=== PATIENT | male | born 1940 | race Caucasian/White ===

== ENCOUNTER → 2017-02-10 | Outpatient (CLI) | payer MEDICARE, BC ==
[~2017-02-10] MED LIST: ASPI-730 PO; ATEN-36 PO; CLOP75TA13 PO; FENO145T10 PO; LISI-126 PO; METF-47 PO; NIAC750T11 PO; NITR0.4T28 SL; SIMV10TA76 PO
--- NOTE | 2017-02-10 09:52 | DI ---
Indication: ITS.REASON: R41.3 MEMORY IMPAIRMENT prior TIA episode in June 2016 PROCEDURE: MRA HEAD W/O CONTRAST: Encounter: Initial Comparison: Brain MRI dated July 01, 2016 Technique: MRA imaging of the head without contrast was acquired. Maximum intensity projection (MIP) reformatted images were produced. 3-dimensional volume rendered imaging of the [place] was performed by the technologist on a dedicated workstation. Findings: The intracranial portions of the vertebral arteries, internal carotid arteries, and their major branches show no significant stenosis or other vascular anomaly. No aneurysms or vascular malformations are evident. Impression: Normal exam. No evidence of aneurysm or flow-limiting arterial stenosis. .
== END ==
LOC: IMA 08:31
PROVIDERS: ATTEND Family Medicine
DX: R41.3 Other amnesia (principal); Z86.73 Personal history of transient ischemic attack (TIA), and cerebral infarction without residual deficits

== ENCOUNTER 2017-10-08 07:59 | Inpatient (IN) ==
--- NOTE | 2017-10-08 08:19 | Emergency Department Report ---
Medical Clearance HPI - General Stated complaint: eval-poss [facility] Time Seen by Provider: 10/08/17 08:13 Source: family, RN notes reviewed, old records reviewed Mode of arrival: ambulatory Limitations: altered mental status (Dementia) - History of Present Illness HPI Narrative: 77yo man presented to the ER for evaluation of worsening dementia. Pt has been dx'ed with dementia; is in a memory study currently. Over the last month, pts sx have gotten worse including auditory and visual hallucinations, not remembering his , and sundowning. WOP encouraged by PCM to present pt for eval for admission to [facility] when she can no longer care for pt. MD complaint: medical clearance requested Onset (ago): year(s) Reason for Medical Clearance: psychiatric condition Place: home Alleged Intoxication: No Compliant with Home Medications: No Traumatic Symptoms: denies traumatic injury Associated Symptoms: denies other symptoms Treatments Prior to Arrival: medication Home medications: Home Medications Medication Instructions Recorded Confirmed Metformin HCl [Glucophage] 500 mg PO BID #0 03/23/10 10/08/17 Nitroglycerin [Nitrostat] 0.4 mg SL PRN PRN #0 03/23/10 10/08/17 Niacin ER [Niaspan] 1,500 mg PO DAILY #0 02/28/14 10/08/17 Apixaban [Eliquis] 5 mg PO BID 06/24/17 10/08/17 Aspirin [Aspirin EC] 81 mg PO DAILY 06/24/17 10/08/17 Fenofibrate [Lofibra] 160 mg PO DAILY 09/09/17 10/08/17 Dorzolamide HCl 1 drop EACH EYE BID 10/08/17 10/08/17 Latanoprost 1 drop LEFT EYE HS 10/08/17 10/08/17 Previous Rx's Medication Instructions Recorded Divalproex Sprinkle [Depakote 500 mg PO BID cap 10/21/17 Sprinkle] Escitalopram [Lexapro] 20 mg PO DAILY tab 10/21/17 LORazepam INJ [Ativan Inj] 0.5 mg IM Q6H PRN vial 10/21/17 LORazepam INTENSOL [Ativan 0.5 mg PO Q6H PRN ml 10/21/17 Intensol] OLANZapine ODT [ZyPREXA Zydis] 2.5 mg PO Q6HR PRN tab 10/21/17 Acetaminophen [Tylenol] 325 - 650 mg PO Q5H PRN tab 10/22/17 Bisacodyl EC TAB [Dulcolax] 10 mg PO DAILY PRN tab 10/22/17 Hydrocodone/APAP 5/325 [Stella 1 tab PO Q6H PRN tab 10/22/17 5/325] Milk of Magnesia [Mom] 30 ml PO DAILY PRN udc 10/22/17 Morphine Sulfate Oral Liq [Roxanol 5 mg SL Q2H PRN #80 syringe 10/22/17 Oral Liq] Allergies/Adverse reactions: Allergies Allergy/AdvReac Type Severity Reaction Status Date / Time No Known Drug Allergies Allergy Unknown Verified 10/08/17 09:02 Review of Systems All systems: reviewed and negative except as stated Neurological: Reports: as per HPI, confusion. Denies: headache, weakness, numbness, paresthesias, abnormal gait, vertigo Psychiatric: Reports: as per HPI, auditory hallucinations, visual hallucinations. Denies: anxiety, depression, suicidal thoughts, homicidal thoughts PFS Patient Stated Medical History Cerebrovascular Accident Yes: TIA x1 Dementia Yes Transient Ischemic Attacks ( Yes TIA) Glaucoma Yes Other HEENT Yes: retinal vein occlusion 2012 Angina No Congestive Heart Failure Yes: per h&p Coronary Artery Disease Yes Hypertension Yes Asthma No Bronchitis No Chronic Obstructive Pulmonary No Disease (COPD) Pneumonia No Pulmonary Edema No Pulmonary Embolism No Sleep Apnea No Tuberculosis No Other Respiratory No Diabetes Mellitus Type 2 Yes: NIDDM Cirrhosis No Gastroesophageal Reflux No Disease Gastrointestinal Bleeding No Hepatitis No Hiatal Hernia No Obstructive Bowel No Ulcer No Other GI Yes: Inguinal hernia Hx Incontinence Yes Hx Renal Disease Yes: Stage 3 Other Yes: cyctitis Other Hematologic Yes: ON BLOOD THINNERS Osteoarthritis Yes Other Musculoskeletal Yes: dementia Depression Yes Clinic Medical History (Last Reviewed 09/29/17 @ 14:25 by VERONICA Lopez) Anxiety (Chronic Medical) BPH (benign prostatic hyperplasia) (Chronic Medical) CHF (congestive heart failure) (Chronic Medical) CKD (chronic kidney disease), stage III (Chronic Medical) Depression (Chronic Medical) Diabetes type 2, controlled (Chronic Medical) HTN (hypertension) (Chronic Medical) Prostate cancer (Chronic Medical) TIA (transient ischemic attack) (Chronic Medical) Surgical History: heart cath x4, 3rd one with stents of circumflex Dr. Kentrell Stern. L4/5-L5/S1 Laminectomy. Bilateral total knee replacement Dr. Duarte 2005 , 2008. Radical prostatectomy 05/07/1998. Right Rotator Cuff repair age 54. Appendectomy age 18. Colonoscopy 02/2014 polyps/FH. Colonoscopy 2016 WNL repeat 5 years, Dr. Modi. Right Inguinal hernia repair 09/10/2017 Family History: Family History (Last Reviewed 09/29/17 @ 14:25 by Akosua Alberto [facility]) Father Heart attack Chronic kidney disease Stroke Mother Dementia Heart disease - Social History Smoking status: Never smoker Physical Exam - Limitations Limitations: no limitations - General General appearance: alert, in no apparent distress - Normal Exams: Head:: Normocephalic without trauma Eyes:: Pupils are PERRLA w/ EOMI, No scleral icterus, irritation, or foreign bodies noted ENMT:: No facial trauma, nasal exudates, pharyngeal erythema, or exudates are noted Neck:: Full range of motion, without adenopathy Chest/Respirations:: Clear all bird, with good airflow, and symmetry bilaterally Cardiovascular:: Regular rate and rhythm, without murmur or gallop, Pulses 2+ all extremities, capillary refill, <2 seconds all extremities Abdomen:: Bowel sounds positive, soft, non-tender, non-distended, no hepatosplenomegaly, masses or bruits noted Lymphatic:: No lymphadenopathy Musculoskeletal:: No tenderness, or deformity noted, good range of motion Integumentary:: No rashes, hives, or bruising noted Neurological:: Patient is alert, cranial nerves, motor/sensory/cerebellar, exams w/o gross deficits Psychiatric:: Patient exhibits, appropriate attention - Psychiatric Psychiatric exam: Present: other (Loss of short-term memory; h/o auditory and visual hallucinations, perseverations, and delusions provided by spouse and PCM. ) Course - Consultations Consultation #1: Dr. Elise: Pt is well-known to Dr. Elise. Had been in discussions with the family regarding referral to [facility] previously. Time: 08:19 Vital Signs Temperature 97.8 F 10/08/17 08:05 Pulse Rate 64 10/08/17 08:05 Respiratory Rate 18 10/08/17 08:05 Blood Pressure 138/65 10/08/17 08:05 Pulse Oximetry 99 10/08/17 08:05 Temperature 97.4 F 10/21/17 20:37 Pulse Rate 62 10/21/17 20:37 Respiratory Rate 12 10/21/17 20:37 Blood Pressure 111/69 10/21/17 20:37 Pulse Oximetry 95 10/21/17 20:37 Medical Clearance - [facility] Narrative Medical decision making narrative: Pt with AD with acute worsening over the last month. No medical contraindications to admission to [facility]. Will contact [facility] for eval /admission. - Differential Diagnosis Differential Diagnosis Narrative: AD, microvascular dementia, Pick's dz, Provencal's, Parkinson's. - Medical Records Attestation: I reviewed the patient's medical records. - Lab Data Attestation: I reviewed the patient's lab results. Result diagrams: 10/19/17 07:42 10/19/17 07:42 Lab Results 10/08/17 10/08/17 10/08/17 Range/Units 08:28 08:28 09:18 WBC 4.0 L (4.5-11.0) T/MM3 RBC 3.89 L (4.50-5.90) M/MM3 Hgb 12.6 L (13.5-17.5) GM/DL Hct 38.3 L (41-53) % MCV 98.5 (80-100) UM3 MCH 32.4 (26-34) UUG MCHC 32.9 (31-37) GM/DL RDW Std Deviation 46.8 (36.9-50.2) FL Plt Count 138 D (130-400) T/MM3 MPV 9.8 (9.4-12.4) UM3 Immature Gran % (Auto) 0.2 (0.0-0.5) % Neut % (Auto) 59.1 (33-66) % Lymph % (Auto) 28.8 (23-45) % [place] % (Auto) 8.2 (0-9.0) % Eos % (Auto) 3.2 (0-4) % Baso % (Auto) 0.5 (0-2) % Neut # (Auto) 2.4 (1.8-7.7) T/MM3 Lymph # (Auto) 1.2 (1-4.8) T/MM3 [place] # (Auto) 0.3 (0-0.8) T/MM3 Eos # (Auto) 0.1 (0-0.5) T/MM3 Baso # (Auto) 0.0 (0-0.2) T/MM3 Abs Immat Gran (auto) 0.01 (0.00-0.03) T/MM3 Turbidity < 20 (0-20) Sodium 143 (134-144) MEQ/L Potassium 4.3 (3.6-5) MEQ/L Chloride 110 H (98-107) MEQ/L Carbon Dioxide 27 (22-30) MEQ/L Anion Gap 6 (5-15) MEQ/L BUN 23.0 H (9-20) MG/DL Creatinine 1.1 (0.8-1.5) MG/DL GFR Calculation 65 BUN/Creatinine Ratio 21 (6-26) RATIO Glucose 183 H (75-110) MG/DL Calculated Osmolality 284 H (261-280) MOSM/KG Calcium 9.4 (8.4-10.2) MG/DL Total Bilirubin 0.50 (0.20-1.30) MG/DL Icterus Index < 2 (0-7) AST 25 (17-59) U/L ALT 34 (21-72) U/L Alkaline Phosphatase 34 L (38-126) U/L Total Protein 6.0 L (6.3-8.2) G/DL Albumin 3.6 (3.5-5.0) G/DL Globulin 2.4 (2.4-3.6) G/DL Albumin/Globulin Ratio 1.5 (1.1-2.2) RATIO TSH 1.80 (0.47-4.68) MIU/L Specimen Hemolysis < 15 (0-25) Ur Collection Type Urine, clean catch Urine Color Yellow (YELLOW) Urine Clarity Clear Urine pH 7.0 (5.0-8.0) Ur Specific [place] 1.010 L (1.015-1.025) Urine Protein Negative (NEGATIVE) Urine Glucose (UA) Trace A (NEGATIVE) Urine Ketones Negative (NEGATIVE) Urine Occult Blood Negative (NEGATIVE) Urine Nitrate Negative (NEGATIVE) Urine Bilirubin Negative (NEGATIVE) Urine Urobilinogen 0.2 (NORMAL) EU/DL Ur Leukocyte Esterase Negative (NEGATIVE) Urinalysis Comment Microscopic not ind. Salicylates < 1.0 L (2-20) MG/DL Acetaminophen < 10 L (10-30) UG/ML Alcohol, Quantitative <10 (<10) MG/DL - Radiology Data Attestation: I reviewed the patient's radiology results. CXR: IMPRESSION: No acute cardiopulmonary abnormality. Disposition Clinical Impression: Alzheimer's dementia Qualifiers: Alzheimer's disease onset: unspecified onset Dementia behavioral disturbance: with behavioral disturbance Qualified Code(s): G30.9 - Alzheimer's disease, unspecified Disposition: 63 To [facility] Condition: Stable - Seen By: physician
--- OUTSIDE RECORDS SUMMARY | 2017-10-08 08:29 | External Medical Summary ---
:1940 Author Organization [employer] Care Team Providers Name Role Phone Kentrell Stern Provider Role Unavailable Allergies No Known Allergies Problems Problem Type Condition Code Onset Dates Condition Status Problem Coronary Artery Disease 414.01 Active Problem Diabetes Mellitus, Type II, 250.00 Active Controlled Problem Dyslipidemia 272.4 Active Problem S/P drug eluting coronary stent Z95.5 Active placement Problem Dyslipidemia (high LDL; low HDL) E78.4 Active Problem CAD (coronary artery disease) I25.10 Active Problem Hypertension 401.9 Active Problem s/p stenting, coronary V45.82 Active Problem Diabetes type 2, controlled E11.9 Active Problem Long-term use of aspirin therapy Z79.82 Active Medications No Known Medications Results No Known Results Summary Purpose [employer] Submission
--- OUTSIDE RECORDS SUMMARY | 2017-10-08 08:29 | External Medical Summary ---
:1940 Author Organization [employer] Care Team Providers Name Role Phone Kentrell Stern Provider Role Unavailable Allergies, Adverse Reactions, Alerts Substance Reaction Event Type N.K.D.A. Info Not Available Non Drug Allergy Problems Problem Type Condition Code Onset Dates Condition Status Assessment Diabetes Mellitus, Type II, 250.00 Active Controlled Assessment Hypertension 401.9 Active Assessment Dyslipidemia 272.4 Active Problem s/p stenting, coronary V45.82 Active Problem Diabetes Mellitus, Type II, 250.00 Active Controlled Problem Hypertension 401.9 Active Assessment Coronary Artery Disease 414.01 Active Assessment s/p stenting, coronary V45.82 Active Problem Dyslipidemia 272.4 Active Problem Coronary Artery Disease 414.01 Active Medications Medication Code System Code Instructions Start Date End Date Status Dosage Aspirin [facility] 91785-585 325 MG Orally qd 1 tab 6-78 [place] [address] 500 MG Orally bid 1 tab 8-01 [place] [address]409 10 MG Orally qd 1 tab 3-10 [place] [address]-690 0.005 % 1 gtt 5-32 [place] [address] 500 MG Orally qd 1 tab 5-01 [place] [address]707 160 MG Orally qd 1 tab 2-02 Nitroglycerin [facility] 70393-301 0.4 MG Sublingual 1 tab 7-25 [place] [address] 20 MG Orally qd 1 tab 8-01 Procedures Procedure Coding System Code Date Office Visit, Est Pt., Level 3 CPT-4 59621 Jun 11, 2015 ELECTROCARDIOGRAM, COMPLETE CPT-4 26222 Jun 11, 2015 Vital Signs Date/Time: Jun 11, 2015 BMI 27.64 Index Weight 198.2 lbs Height 5'11" in Cardiac Monitoring Heart Rate 96 /min Oximetry 98%RA % Blood Pressure Diastolic 60 mm Hg Blood Pressure Systolic 102 mm Hg Results No Known Results Summary Purpose [place] [employer] Submission
--- OUTSIDE RECORDS SUMMARY | 2017-10-08 08:29 | External Medical Summary ---
:1940 Author Organization [employer] Care Team Providers Name Role Phone Edil Sterni Provider Role Unavailable Allergies, Adverse Reactions, Alerts [...] Long-term use of aspirin therapy Z79.82 Active Assessment Diabetes type 2, controlled E11.9 Active Assessment Dyslipidemia (high LDL; low HDL) E78.4 Active Assessment S/P drug eluting coronary stent Z95.5 Active placement Assessment Long-term use of aspirin therapy Z79.82 Active Assessment CAD (coronary artery disease) I25.10 Active Medications Medication Code System Code Instructions Start Date End Date [place] D[place] [address] 500 MG Orally bid 1 tab 8-01 Fenofibrate [facility] 616[address]-186 160 MG Orally qd 1 tab 2-02 [place] [address]-292 325 MG Orally qd 1 tab 6-78 [place] [address] 10 MG Orally qd 1 tab 3-10 [place] [address] 500 MG Orally QD 2 tab 5-01 Nitroglycerin [facility] [address]88[address]-768 0.4 MG Sublingual 1 tab 7-25 prn Latanoprost [facility] 78336-511 0.005 % 1 gtt 5-32 [place] [address]-010 10 MG Orally qd 1 tab 7-01 Procedures Procedure Coding System Code Date Office Visit, Est Pt., Level 4 CPT-4 00308 Jul 09, 2016 Vital Signs Date/Time: Jul 09, 2016 BMI 26.78 Index Weight 192 lbs Height 5'11" in Cardiac Monitoring Heart Rate 98 /min Oximetry 105 % Blood Pressure Diastolic 60 mm Hg Blood Pressure Systolic 110 mm Hg Results No Known Results Summary Purpose [employer] Submission
--- NOTE | 2017-10-08 08:47 | XRay Report ---
Indication: Clearance PROCEDURE: XR chest 1V: Encounter: Initial Comparison: None FINDINGS: The lungs are clear. There is no abnormal airspace opacity, pleural effusion or pneumothorax identified. The heart size, pulmonary vasculature and mediastinum are within normal limits. Degenerative and postoperative change in the right shoulder. Chronic rotator cuff tears. IMPRESSION: No acute cardiopulmonary abnormality. .
[2017-10-08 12:11] VITALS: BMI 25.2
[2017-10-08] MEDS ORDERED: HALOPERIDOL 5 MG/ML INJECTION IM PRN (12:20)
[2017-10-08] MEDS ORDERED: HALOPERIDOL 0.5 MG TABLET PO PRN (12:20)
[2017-10-08] MEDS ORDERED: NITROGLYCERIN 0.4 MG SUBLINGUAL TABLET SL PRN (12:20)
[2017-10-08] MEDS ORDERED: LORazepam 0.5 MG TABLET PO PRN (12:20)
--- NOTE | 2017-10-08 13:14 | History & Physical Report ---
History of Present Illness Date: 10/08/17 Chief complaint: psychosis, dementia HPI: Saurabh Garcia (Rich) is a 77-year-old male patient of Dr. Elise who presented to [facility] ED today, 10/08/17, at his insistence due to increased paranoia and psychosis. His is present on the exam, and provides the majority of the history. Additional information is obtained from prior medical records, ED records and nursing notes. He has a known history of Alzheimer's dementia and is currently participating in a study in which he has recently undergone an extensive neuropsychological evaluation by Dr. Silas Hurst. Reportedly over the past 4-6 weeks, he has had progressive cognitive decline with increasing restlessness and paranoia. His believes that his is letting people into their house and is selling drugs. This morning, around 0400, he called the police to report that someone had dropped at package off at their house. She also reports that he has been hiding items around the house and at times does not recognize that she is his . After more than 2 hours, the police were able to de-escalate the situation safely and Chris was brought to the ED for further evaluation. Labs were obtained in the ED and revealed mild leukopenia ( WBC 4.0) and mild anemia (12.6). CMP was unremarkable. Review of prior medical records revealed that he recently under went right inguinal repair by Dr. Martinez on 09/10/17, which retrospectively appears to correlate with some of the increased behaviors. UA was unremarkable and CXR showed no acute cardiopulmonary disease. His previously expressed concern about being able to continue to care for Chris at home. She recalled that in the fall of 2016 he had made some morbid statements resulting in the removal of all guns from the home by his son. He denies any recent illness, fevers, chill, cough, congestion, chest pain, shortness of breath, abdominal pain, nausea or vomiting. Due to his acute psychosis, he was admitted [facility]. The hospitalist service was consulted for medical management. Prior records indicate a past medical history significant for CHF, CKD stage III, diabetes and hypertension. Chris is seen, accompanied by his , while sitting in the day room. He appears slightly withdrawn and becomes silently tearful throughout the admission process and increased commotion on the unit. Review of Systems All systems PM: 10-point ROS was reviewed, no additional remarkable complaints except Review of systems: limited due to patient's dementia. - Constitutional Constitutional: Present: weight loss (gradual over few years). Absent: chills, fever(s), headache(s), malaise, weakness - EENMT Eyes: Absent: diplopia, loss of vision Ears: Absent: ear pain Balance: Absent: falling to one side Nose: Absent: nosebleeds Mouth/Throat: Absent: sore throat, painful swallowing, change in voice - Cardiovascular Cardiovascular: Present: edema. Absent: chest pain, palpitations, syncope, dyspnea on exertion, orthopnea Rhythm: Present: regular rhythm Vascular: Present: pallor of an extermity - Respiratory Respiratory: Absent: cough, dyspnea, hemoptysis, dyspnea on exertion, wheezing - Gastrointestinal Gastrointestinal: Absent: abdominal pain, diarrhea, hematochezia, melena, nausea , vomiting - Genitourinary Genitourinary: Absent: dysuria, flank pain, hematuria - Musculoskeletal Musculoskeletal: Absent: back pain, deformity, limited range of motion - Integumentary/Breasts Integumentary: Absent: rash - Neurological Neurological: Present: confusion, memory loss. Absent: convulsions, dizziness, focal weakness, headache(s), tremor(s) - Psychiatric Psychiatric: Present: anxiety, behavioral changes, depression, paranoia - Endocrine Endocrine: Absent: flushing, palpitations - Hematologic/Lymphatic Hematologic/Lymphatic: Absent: easy bruising - Allergic/Immunologic Allergic/Immunologic: Absent: seasonal rhinorrhea Past Medical History Patient Stated Medical History Alzheimer's dementia. Anxiety. BPH. CAD. CHF. Chronic anticoagulation on Eliquis. Chronic kidney disease, stage III. Depression. Diabetes Type 2. Glaucoma. Hypertension. History of prostate cancer. History of retinal vein occlusion, 2011. History of TIA. History of urinary incontinence. Osteoarthritis. Surgical History: Right Inguinal hernia repair 09/10/2017. Heart cath x4, 3rd one with stents of circumflex Dr. Kentrell Stern. L4/5-L5/S1 Laminectomy. Bilateral total knee replacement Dr. Duarte 2005 , 2008. Radical prostatectomy . Right Rotator Cuff repair age 54. Appendectomy age 18. Colonoscopy 02/2014 polyps/FH. Colonoscopy 06/25/2017 WNL repeat 5 years, Dr. Modi. Family History Updates: Father - Heart attack, Chronic kidney disease, Stroke. Mother - Dementia, Heart disease. Aunt - Dementia. - Social History Smoking status: Never smoker Substance use type: does not use Alcohol intake frequency: does not drink Housing: house Household members: spouse Current occupational status: retired Does patient use chewing tobacco?: No Current residence: Apartment/Private Home Social history: PCP - Dr. Elise. Neuropsych - Dr. Silas Hurst. Medications Home Medications Medication Instructions Recorded Confirmed Type Metformin HCl [Glucophage] 500 mg PO BID #0 03/23/10 10/08/17 History Nitroglycerin [Nitrostat] 0.4 mg SL PRN PRN #0 03/23/10 10/08/17 History Niacin ER [Niaspan] 1,500 mg PO DAILY #0 02/28/14 10/08/17 History Apixaban [Eliquis] 5 mg PO BID 06/24/17 10/08/17 History Aspirin [Aspirin EC] 81 mg PO DAILY 06/24/17 10/08/17 History Fenofibrate [Lofibra] 160 mg PO DAILY 09/09/17 10/08/17 History Simvastatin [Zocor] 10 mg PO HS 09/09/17 10/08/17 History Cholecalciferol (Vitamin D3) 2,000 unit PO DAILY 10/08/17 10/08/17 History [Vitamin D3] Dorzolamide HCl 1 drop EACH EYE BID 10/08/17 10/08/17 History Escitalopram [Lexapro] 10 mg PO DAILY 10/08/17 10/08/17 History Latanoprost [Latanoprost] 1 drop LEFT EYE HS 10/08/17 10/08/17 History Allergies Allergy/AdvReac Type Severity Reaction Status Date / Time No Known Drug Allergies Allergy Unknown Verified 10/08/17 09:02 Exam Vital Signs: Temperature 97.6 F 10/08/17 12:00 Pulse Rate 61 10/08/17 12:00 Respiratory Rate 20 10/08/17 12:00 Blood Pressure 134/73 10/08/17 12:00 Pulse Oximetry 100 10/08/17 12:00 Height/Weight/BMI: Height 5 ft 10 in Weight 176 lb 2.389 oz Body Mass Index 25.2 Comments: Patient is seen while sitting in day room with at his side; appears withdrawn and silently crying most likely secondary to the commotion of being admitted. - Constitutional Present: well nourished, well developed, cooperative Comments: tearful - Routine HEENT Exam Head: Present: normocephalic, atraumatic Eye: Present: PERRL. Absent: conjunctival icterus ENT: Present: mucous membranes moist, oropharynx clear - Routine Neck Exam Present: supple, full ROM, trachea midline - Routine Chest/Breast/Axilla Exam Chest wall: Absent: pacemaker - Routine Respiratory Exam Present: CTA bilaterally. Absent: rales, rhonchi, stridor, wheezes, crackles - Routine Cardiovascular Exam Present: RRR, S1, S2 - Routine Abdominal Exam Present: soft, normoactive bowel sounds, non distended, non tender. Absent: rebound - Routine Extremities Exam Present: edema (trace), non tender, pulses intact - Routine Back/Spine/Pelvis Exam Back/Spine: Present: full ROM, kyphosis. Absent: vertebral tenderness - Routine Skin Exam Present: dry, warm. Absent: jaundice Comments: afebrile - Routine Neurological Exam Present: alert ( orienated to self only.), moving all extremities, hearing grossly intact patient does not speak on exam; does most of the talking. - Routine Psychiatric Exam Present: cooperative Comments: tearful, withdrawn, appears overwhelmed. Results - Labs CBC & Chem 7: 10/08/17 08:28 10/08/17 08:28 - Imaging and Cardiology Chest x-ray Status: image reviewed by me Additional comments: Date of Exam: 10/08/17 PROCEDURE: XR chest 1V: FINDINGS: The lungs are clear. There is no abnormal airspace opacity, pleural effusion or pneumothorax identified. The heart size, pulmonary vasculature and mediastinum are within normal limits. Degenerative and postoperative change in the right shoulder. Chronic rotator cuff tears. IMPRESSION: No acute cardiopulmonary abnormality. Assessment and Plan (1) Psychosis Current visit: Yes Status: Acute (2) Alzheimer's dementia Current visit: Yes Status: Chronic Assessment and Plan: Assessment Psychosis, acute. Alzheimer's dementia. Anemia, unspecified. Anxiety. BPH. CAD. CHF. Chronic anticoagulation on Eliquis. Chronic kidney disease, stage III. Depression. Diabetes Type 2. Glaucoma. Hypertension. History of prostate cancer. History of retinal vein occlusion, 2011. History of TIA. History of urinary incontinence. Osteoarthritis. Plan - 10/08/17 (Admission) Agree with admission to [facility] for further psychiatric evaluation treatment. Provide safe and supportive environment. Hospitalist service consulted for medical management. Labs obtained in ED prior to admission and were relatively unremarkable. Will continue to monitor periodically throughout admission. TSH 1.80. Recent right inguinal hernia repair on 09/10/[address] Martinez with subsequent formation of a hematoma which has been managed as an outpatient. Will consult Dr. Martinez for continued management of hematoma. Anemia noted on admission - hgb 12.6. Will assess B12 level. Suspect anemia is secondary to recent surgery. Will continue to monitor closely. Continue home medications including Eliquis for chronic anticoagulation given prior TIA. Monitor blood pressure closely as well as daily weight to monitor for fluid overload. Will check blood sugars daily in AM. Upon discharge, patient's care will be returned to his PCP, Dr. Elise. Resuscitation Status: Full Code - Time spent with patient Time with patient PN: 70 minutes - Physician Narrative Physician: Herminia Salazar MD Narrative: Date: 10/08/17 Time: 1300 Hospital Course Summary Disclaimer: The visit summary below is not to be considered part of the above Progress Note. Hospital Course: Plan - 10/08/17 (Admission) Agree with admission to [facility] for further psychiatric evaluation treatment. Provide safe and supportive environment. Hospitalist service consulted for medical management. Labs obtained in ED prior to admission and were relatively unremarkable. Will continue to monitor periodically throughout admission. TSH 1.80. Recent right inguinal hernia repair on 09/10/[address] Martinez with subsequent formation of a hematoma which has been managed as an outpatient. Will consult Dr. Martinez for continued management of hematoma. Anemia noted on admission - hgb 12.6. Will assess B12 level. Suspect anemia is secondary to recent surgery. Will continue to monitor closely. Continue home medications including Eliquis for chronic anticoagulation given prior TIA. Monitor blood pressure closely as well as daily weight to monitor for fluid overload. Will check blood sugars daily in AM. Upon discharge, patient's care will be returned to his PCP, Dr. Elise.
--- NOTE | 2017-10-08 16:05 | General Surgery Consult Note ---
Consult date: 10/12/17 Attending Physician: Cherelle Macias MD Reason for consult: hernia (hematoma) [facility] Patient Stated Medical History Cerebrovascular Accident Yes: TIA x1 Glaucoma Yes Other HEENT Yes: retinal vein occlusion 2011 Angina No Congestive Heart Failure Yes: per h&p Coronary Artery Disease Yes Hypertension Yes Diabetes Mellitus Type 2 Yes: NIDDM Other GI Yes: Inguinal hernia Hx Incontinence Yes Hx Renal Disease Yes: Stage 3 Other Yes: cyctitis Other Hematologic Yes: ON BLOOD THINNERS Osteoarthritis Yes Other Musculoskeletal Yes: dementia Depression Yes Clinic Medical History (Last Reviewed 09/29/17 @ 14:25 by VERONICA Lopez) Anxiety (Chronic Medical) BPH (benign prostatic hyperplasia) (Chronic Medical) CHF (congestive heart failure) (Chronic Medical) CKD (chronic kidney disease), stage III (Chronic Medical) Depression (Chronic Medical) Diabetes type 2, controlled (Chronic Medical) HTN (hypertension) (Chronic Medical) Prostate cancer (Chronic Medical) TIA (transient ischemic attack) (Chronic Medical) Surgical History: Right Inguinal hernia repair 09/10/2017. Heart cath x4, 3rd one with stents of circumflex Dr. Kentrell Stern. L4/5-L5/S1 Laminectomy. Bilateral total knee replacement Dr. Duarte 2005 , 2008. Radical prostatectomy . Right Rotator Cuff repair age 54. Appendectomy age 18. Colonoscopy 02/2014 polyps/FH. Colonoscopy 06/25/2017 WNL repeat 5 years, Dr. Modi. Family History: Family History (Last Reviewed 09/29/17 @ 14:25 by VERONICA Lopez) Father Heart attack Chronic kidney disease Stroke Mother Dementia Heart disease - Social History Smoking status: Never smoker Does patient use chewing tobacco?: No Current residence: Apartment/Private Home Medications Home Medications Medication Instructions Recorded Confirmed Type Metformin HCl [Glucophage] 500 mg PO BID #0 03/23/10 10/08/17 History Nitroglycerin [Nitrostat] 0.4 mg SL PRN PRN #0 03/23/10 10/08/17 History Niacin ER [Niaspan] 1,500 mg PO DAILY #0 02/28/14 10/08/17 History Apixaban [Eliquis] 5 mg PO BID 06/24/17 10/08/17 History Aspirin [Aspirin EC] 81 mg PO DAILY 06/24/17 10/08/17 History Fenofibrate [Lofibra] 160 mg PO DAILY 09/09/17 10/08/17 History Simvastatin [Zocor] 10 mg PO HS 09/09/17 10/08/17 History Cholecalciferol (Vitamin D3) 2,000 unit PO DAILY 10/08/17 10/08/17 History [Vitamin D3] Dorzolamide HCl 1 drop EACH EYE BID 10/08/17 10/08/17 History Escitalopram [Lexapro] 10 mg PO DAILY 10/08/17 10/08/17 History Latanoprost [Latanoprost] 1 drop LEFT EYE HS 10/08/17 10/08/17 History Allergies Allergy/AdvReac Type Severity Reaction Status Date / Time No Known Drug Allergies Allergy Unknown Verified 10/08/17 09:02 Review of Systems 10-point ROS: negative except for HPI and the following: - Psychiatric Psychiatric: Present: anxiety, depression, thought of suicide, other (memroy loss) - Hematologic/Lymphatic Hematologic/Lymphatic: Present: easy bruising - Vital Signs Last Vital Signs Temp 97.6 F 10/08/17 12:00 Pulse 61 10/08/17 12:00 Resp 20 10/08/17 12:00 BP 134/73 10/08/17 12:00 Pulse Ox 100 10/08/17 12:00 - Laboratory Result Diagrams: 10/11/17 07:00 10/11/17 15:11 Hospital Course Summary Disclaimer: The visit summary below is not to be considered part of the above Progress Note. Hospital Course: Plan - 10/08/17 (Admission) Agree with admission to [facility] for further psychiatric evaluation treatment. Provide safe and supportive environment. Hospitalist service consulted for medical management. Labs obtained in ED prior to admission and were relatively unremarkable. Will continue to monitor periodically throughout admission. TSH 1.80. Recent right inguinal hernia repair on 09/10/[address] Martinez with subsequent formation of a hematoma which has been managed as an outpatient. Will consult Dr. Martinez for continued management of hematoma. Anemia noted on admission - hgb 12.6. Will assess B12 level. Suspect anemia is secondary to recent surgery. Will continue to monitor closely. Continue home medications including Eliquis for chronic anticoagulation given prior TIA. Monitor blood pressure closely as well as daily weight to monitor for fluid overload. Will check blood sugars daily in AM. Upon discharge, patient's care will be returned to his PCP, Dr. Elise.
[2017-10-08] MEDS ORDERED: NEOMYCIN/POLYMYXIN/BACITRACIN OINT PACKET TP PRN (18:11)
[2017-10-08] MEDS: LATANOPROST 0.005% EYE DROPS 2.5ml LEFT EYE SCH (20:22)
[2017-10-08] MEDS: APIXABAN 5 MG TABLET PO SCH (20:22)
[2017-10-08] MEDS: METFORMIN 500 MG TABLET PO SCH (20:22)
[2017-10-09] MEDS: DORZOLAMIDE 2% EYE DROPS 10ml EACH EYE SCH ×3 (00:17→20:35)
[2017-10-09] MEDS ORDERED: HALOPERIDOL 5 MG/ML INJECTION IM ONE (03:45)
[2017-10-09] MEDS ORDERED: FENOFIBRATE 160 MG TABLET PO SCH (09:00)
[2017-10-09] MEDS ORDERED: ESCITALOPRAM 10 MG TABLET PO SCH (09:00)
[2017-10-09] MEDS: ASPIRIN *EC* 81 MG TABLET PO SCH (11:59)
[2017-10-09] MEDS: APIXABAN 5 MG TABLET PO SCH ×2 (11:59→20:35)
[2017-10-09] MEDS: METFORMIN 500 MG TABLET PO SCH ×2 (12:00→20:36)
[2017-10-09] MEDS: NIACIN 750 MG PO SCH (12:00)
--- NOTE | 2017-10-09 20:21 | 24 Hour Neuropsychiatic Eval ---
Date of Admission: 10/08/17 11:06 Chief complaint: Physical aggression towards History of Present Illness: Patient is a 77-year-old , retired male who was admitted to [facility] on 10/08/17 after being brought by his for being physically combative with her at home. Patient has previously been diagnosed with primary progressive aphasia (variant of Alzheimer's dementia) by Dr. Silas Hurst and has been living with in the home, but has had increasing behaviors since mid-August. Of note, patient also underwent anesthesia for a hernia repair in mid-August. Since then, he has become increasingly paranoid, irritable, restless. He has been concerned his was selling drugs out of their home. At times, he has not recognized his . reported he has made multiple morbid statements about harming self so she has removed guns from their home. On interview, patient is being assisted by 2 male staff members and appears agitated with them. He does not answer any of my questions. He has disorganized behavior (unbuttoning his pants, sticking a MEMS PROCESS ENGINEER's fingers through the button hole and then becoming irritable with him). The MEMS PROCESS ENGINEER reported he has not been making any sense if he did talk. Nursing staff report patient became very agitated, combative, etc. overnight and required multiple IM PRNs, sleeping only ~2 hours. Per Neuropsych Evaluation completed by Dr. Silas Hurst in May 2017: "Date of Evaluation: 06/18/2017, 07/01/2017. & 07/06/2017 REFERRAL: The patient is a 76-year-old, right handed, , male who reports a gradually progressive decline in language and memory over the past year. He was referred by his neurologist, Dr. Gordo Smith, for assistance in differential diagnosis and treatment planning. PROCEDURES: A clinical interview was conducted with the patient and his . Available medical records were reviewed. The following neuropsychological tests were administered by a trained stull hewer under the supervision of Dr. Silas Hurst: Test of Premorbid Functioning (TOPF), Luke Adult Intelligence Scale 4th Edition (WAIS-IV), Repeatable Battery for the Assessment of Neuropsychological Status (RBANS), Shavon-Chandler Executive Function System (D-KEFS)[subtests: [place] Making & Verbal Fluency], [id number]- Hand Test, [place] Naming Test, Sergey Continuous Performance Test 3rd Edition (CPT-3). The testing was scored and interpreted; a final session was held with the patient and his ; and this report was written. HISTORY & PRESENTING PROBLEM: The patient and his reported an approximate 9 -12 month gradually progressive change in the patients cognition, observed to primarily impact language and memory. Specifically, the patient endorsed increased difficulties with word finding, coming up with the names of people and things, pronunciation, and losing track of what hes saying while speaking. His reported that she observes him to have difficulty completing words once started. He also reported that his rate of speech has declined considerably , which he attributed to his efforts to compensate for his difficulties with word finding and pronounciation. The patient and his additionally reported difficulties with memory, which they clarified to namely relate to difficulty misplacing personal items and being inattentive. His did note that he is variable in his ability to remember details from conversations. She noted that he tends to conflate or mix up details rather than completely forget them, citing his difficulty keeping track of his doctor appointments and their purposes. Difficulties in multitasking, staying on task, and complex problem solving were also reported by his . The patient continues to perform instrumental activities of daily living independently, although his observes him to have some difficulty. She noted that he has made errors writing checks such as omitting his signature or amount, and reported that he paid their taxes twice this year. Consequently, she stated that she is learning more about their finances so that she can provide increased assistance when needed. She noted changes in his driving in that he has greater difficulty changing lanes and, overall, tends to drive much slower. She reported that the patient was formerly a very capable cardiac/vascular sonographer, but noted that his ability to follow games such as [employer]ers Edge, which he has played all of his life, has declined to the point that they are playing much less frequently. They reported that he does manage his medications without difficulty, and denied other significant issue in ADLs. The patient denied current or previous depression or anxiety, however he did acknowledge that he is frustrated by his increased language difficulties. His observes him to be both more irritable and more easily frustrated. She also reported that he frequently wakes in the night with worry and agitation. SOCIAL HISTORY: The patient reported that he completed 16 years of education with a B.A. in P.E. from [employer]. 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 He and his have been 57 years and they have two sons, one and one who lives in the area. MEDICAL HISTORY: Additional past medical history is significant for coronary artery disease, hypertension, type II diabetes, suspected TIA (07/13), glaucoma , and prostate cancer. An MRA of the brain, dated 07/01/16, was interpreted as being normal. A recent amyloid PET scan was interpreted as showing a nonspecific pattern of moderate amyloid. MRI of the brain also from June 2016 showed diffuse cortical atrophy. He has a family history of dementia in his mother. BEHAVIORAL OBSERVATIONS: The patient arrived on time for the initial appointment and was accompanied by his . He was casually dressed, appropriately groomed, and appeared his stated age. He ambulated without assistance. Eye contact was average. His speech was slowed and deliberate, with diminished prosody. Word finding difficulties, phonemic paraphasia, and word substitutions were evident. At times, he lost track of what he was saying and need to be reminded. During testing, speech was described as somewhat incomprehensible with use of nonsense words. Thought processes were somewhat concrete and slowed. During interview, the patient had some difficulty comprehending relatively more complex questions. On testing, the patient struggled to understand directions and required that they be repeated and explained more concretely. Progress through testing was slow due to the patient s slowed thought processes and communication difficulties. Reported mood was pretty sharp; affect ranged appropriately and was consistent with stated mood. Insight into the nature of his cognitive difficulties was adequate, although he tended to minimize their impact on his daily functioning and was somewhat defensive when examples were provided by his . NEUROPSYCHOLOGICAL TEST RESULTS: On tests for which standard scores are available, the following classification system was applied to indicate deviation from mean (or average) test performance: superior range: > 90th percentile high average range: 90th - 75th percentile average range: 75th - 25th percentile low average range: 25th - 10th percentile mildly impaired range: 10th - 2nd percentile moderately impaired range: 2nd - 0.1st percentile severely impaired range. < 0.1st percentile Premorbid intellectual abilities were estimated using an equation that utilizes demographic variables and were estimated to be high average. Verbal intellectual functioning was moderately impaired, overall. Performance on other verbal tests were also generally impaired. Specifically, phonemic verbal retrieval was moderately impaired, semantic verbal retrieval was mildly to moderately impaired, and sentence repetition was significantly impaired, with even relative brief sentences being inaccurate. Confrontation naming was average , reading fluency was unimpaired, and reading of atypical words was mildly impaired. Oral description of a picture was fluent without signs of hue agrammaticism. Comprehension, which was informally tested, was impaired, with the patient requiring repetition and elaboration throughout testing. On tests of visuospatial ability, visual pattern analysis and reasoning and visuospatial pattern assembly were low average, judgment of line orientation was moderately impaired, and copy of a complex figure was high average. Auditory attention span was moderately impaired, working memory was moderately- to-severely impaired, and mental processing speed was moderately impaired. Conversely, sustained attention was unimpaired. Executive functioning, as measured by measures of divided attention and cognitive flexibility, was severely impaired. Learning of new verbal information was severely impaired. Following a brief delay, the patient was able to recall a small amount of the previously recalled information, a moderately impaired performance. Recall of a previously copied complex figure was also moderately impaired. Memory recognition ranged from mildly to severely impaired. CONCLUSIONS: On neuropsychological testing, the patient demonstrated significant cognitive dysfunction across most domains of cognition. Moderate to severe impairment was demonstrated in the domains of verbal working memory and language, and such impairment likely interfered with performance across tests of other domains. The patients significant impairments in auditory attention span, auditory working memory, and language is atypical within the early stages of many neurodegenerative processes. The patients language impairment is notable for single word retrieval difficulties in daily life and impaired sentence repetition, in the context of relatively intact fluency, grammaticism, and syntax in conversation, and preserved word knowledge. 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 Other aspects of the patients presentation, including his markedly impaired auditory attention span, impaired verbal working memory, slowed speech, and propensity for phonological paraphasias in speech, are also suggestive of logopenic PPA, in which word retrieval difficulties are believed due to impairment of the phonologic loop. Finally, logopenic PPA is now commonly considered an atypical variant of Alzheimers disease, with beta amyloid aggregation seen in greater than 70% of patients demonstrating clinical signs. The patients positive amyloid PET finding in the context of his clinical presentation is therefore further support of this suspected etiology. While logopenic PPA is believed most likely, an atypical presentation of Alzheimers disease cannot be definitively ruled out, particularly given the patients significant memory difficulties on testing. A final session was held with the patient and his during which these results were discussed. They appeared to comprehend the information. They asked appropriate questions, and all of their questions were answered. Therapy was aimed at discussing the nature and severity of the patients cognitive deficits and their suspected etiology. Recommendations were also offered and are listed below. 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" Psychosis: Hallucinations/Illusions (observed picking at air) Dementia: Memory Impairment, Aphasia, Poor Executive Functioning, Other ( physical aggression) Reviewed: Home Medications, Allergies, Current Lab Data, Nursing Notes, Physician Consults [facility] Patient Stated Medical History Cerebrovascular Accident Yes: TIA x1 Glaucoma Yes Other HEENT Yes: retinal vein occlusion 2011 Angina No Congestive Heart Failure Yes: per h&p Coronary Artery Disease Yes Hypertension Yes Asthma No Bronchitis No Chronic Obstructive Pulmonary No Disease (COPD) Pneumonia No Pulmonary Edema No Pulmonary Embolism No Sleep Apnea No Tuberculosis No Other Respiratory No Diabetes Mellitus Type 2 Yes: NIDDM Cirrhosis No Gastroesophageal Reflux No Disease Gastrointestinal Bleeding No Hepatitis No Hiatal Hernia No Obstructive Bowel No Ulcer No Other GI Yes: Inguinal hernia Hx Incontinence Yes Hx Renal Disease Yes: Stage 3 Other Yes: cyctitis Other Hematologic Yes: ON BLOOD THINNERS Osteoarthritis Yes Other Musculoskeletal Yes: dementia Depression Yes Clinic Medical History (Last Reviewed 09/29/17 @ 14:25 by VERONICA Lopez) Anxiety (Chronic Medical) BPH (benign prostatic hyperplasia) (Chronic Medical) CHF (congestive heart failure) (Chronic Medical) CKD (chronic kidney disease), stage III (Chronic Medical) Depression (Chronic Medical) Diabetes type 2, controlled (Chronic Medical) HTN (hypertension) (Chronic Medical) Prostate cancer (Chronic Medical) TIA (transient ischemic attack) (Chronic Medical) Surgical History: Right Inguinal hernia repair 09/10/2017. Heart cath x4, 3rd one with stents of circumflex Dr. Kentrell Stern. L4/5-L5/S1 Laminectomy. Bilateral total knee replacement Dr. Duarte 2005 , 2008. Radical prostatectomy . Right Rotator Cuff repair age 54. Appendectomy age 18. Colonoscopy 02/2014 polyps/FH. Colonoscopy 06/25/2017 WNL repeat 5 years, Dr. Modi. Family History: Family History (Last Reviewed 09/29/17 @ 14:25 by Akosua Alberto Pili) Father Heart attack Chronic kidney disease Stroke Mother Dementia Heart disease - Social History Smoking status: Never smoker Does patient use chewing tobacco?: No Current residence: Apartment/Private Home Social history: Strengths: Previously high functioning, supportive family Review of Systems ROS unobtainable: due to mental status - EENMT Ears: Absent: ear pain Balance: Absent: falling to one side Nose: Absent: nosebleeds Mouth/Throat: Absent: sore throat, painful swallowing, change in voice - Cardiovascular Rhythm: Present: regular rhythm Vascular: Present: pallor of an extermity - Genitourinary Genitourinary: Absent: dysuria, flank pain, hematuria Mental Status Exam Vitals: Last Vital Signs Temp 98.7 F 10/09/17 16:00 Pulse 89 10/09/17 16:00 Resp 16 10/09/17 16:00 BP 102/61 10/09/17 16:00 Pulse Ox 97 10/09/17 16:00 Height: 1.78 m Weight: 79.9 kg - Mental Status Exam Muscle Strength/Tone: Weak Dressing: Casual Grooming: Fair Attitude: Uncooperative, Combative Motor Activity: Retardation, Tremors Eye Contact: Poor Speech: Slowed, Other (Minimal) Volume: Soft Rhythm: Mumbled Orientation: Disoriented to time, Disoriented to place, Disoriented to situation , Oriented to person Mood: Irritable Affect: Angry Rate of Thoughts: Delayed Thought Organization: Disorganized, Confused Associations: Illogical Abstract Reasoning: Impaired, concrete Thought Content: Other (Poverty of thought or out of context to situation) Perception/Psychotic: Psychotic Current Hallucinations: Visual (observed picking out of air) Language: Naming Impaired Fund of Knowledge: Poor fund of knowledge Memory: Poor-immediate, Poor-recent Suicidal Ideation: Persistent Homicidal Ideation: None Insight: Impaired Judgement: Impaired Impulse Control: Poor - Laboratory Result Diagrams: 10/08/17 08:28 10/08/17 08:28 Laboratory Results - last 24 hr 10/09/17 08:47 Glucometer 146 Assessment and Plan (1) Psychosis Current visit: Yes Status: Acute R/O Postoperative delirium (2) Major neurocognitive disorder Problem details: due to primary progressive aphasia as above, with behavioral disturbance Current visit: Yes Status: Acute (3) Primary progressive aphasia Current visit: Yes Status: Acute (4) BPH (benign prostatic hyperplasia) Current visit: Yes Status: Acute (5) CAD (coronary artery disease) Current visit: Yes Status: Acute (6) CHF (congestive heart failure) Current visit: Yes Status: Acute (7) CKD (chronic kidney disease), stage III Current visit: Yes Status: Acute (8) DMII (diabetes mellitus, type 2) Current visit: Yes Status: Acute (9) Glaucoma Current visit: Yes Status: Acute (10) HTN (hypertension) Current visit: Yes Status: Acute (11) History of prostate cancer Current visit: Yes Status: Acute (12) History of retinal vein occlusion Current visit: Yes Status: Acute (13) History of TIA (transient ischemic attack) Current visit: Yes Status: Acute (14) History of urinary incontinence Current visit: Yes Status: Acute (15) Osteoarthritis Current visit: Yes Status: Acute Admit to [facility] for [facility] evaluation and stabilization; maintain safety and elopement precautions. Obtain further collateral from /[facility]POA and other providers. Review/order following labs: CBC, CMP, TSH, UA, Vitamin B12 and folate levels. Have consulted hospitalist for optimization of medical comorbidities. Attempted to contact in regards to starting antipsychotic to target behaviors, minimize PRN use while cause of psychosis is ascertained. Monitor mood, behavior and response to treatment.
[2017-10-09] MEDS: LATANOPROST 0.005% EYE DROPS 2.5ml LEFT EYE SCH (20:36)
[2017-10-09] MEDS: OLANZapine ODT 5 MG TABLET PO PRN (21:22)
[2017-10-10] MEDS ORDERED: HALOPERIDOL 5 MG/ML INJECTION IM ONE (00:03)
--- NOTE | 2017-10-10 10:33 | Operative Note ---
DATE OF SERVICE 10/08/2017 FINDINGS Mr. Garcia is a 77-year-old gentleman whom I was asked to see today as a result of some drainage noted from his prior right inguinal hernia repair incision site. No official consult as needed. Mr. Garcia is well known to my surgical practice. Recently I had performed a right inguinal hernia repair upon the patient. The patient was on anticoagulation which was held at the time of surgery. Shortly after surgery his anticoagulation was reinitiated. Unfortunately, the patient did develop a fairly large hematoma postoperatively. This has been followed conservatively. Unfortunately, Mr. Garcia's dementia has progressed and he has recently had some hallucinations. He was admitted to our [facility] unit for further care. OBJECTIVE Upon examination, attention was focused to the area of concern involving the right inguinal region. The hematoma has markedly improved from the last time I had seen the patient. It is perhaps 80% smaller. There is no evidence for seroma upon palpation beneath the incision. There is still some residual hematoma present. One can see that the incision has been draining slightly. There was some blood upon his underwear. There was no marked erythema to suggest an infection but there was some slight erythema along the incision that was present. ASSESSMENT 77-year-old gentleman with the misfortune of developing fairly progressive dementia. Patient is status post right inguinal herniorrhaphy with development of postoperative hematoma secondary to anticoagulation. Hematoma markedly improved. PLAN I would like to go ahead and place the patient empirically on some antibiotics given the slight erythema noted and the fact that the incision is actively draining. Will place the patient on Keflex. Will also have nursing staff just simply paint the incision with Betadine on an on an as-needed basis followed by application of an antibiotic ointment. Will continue to see the patient intermittently during his hospitalization. No surgical intervention is needed at this time. SIENNA
--- NOTE | 2017-10-10 11:38 | Neuropsych Progress Note ---
[facility] Subjective Date: 10/10/17 - Sujective/Severity of Illness Medications: Acetaminophen (Tylenol) 325 - 650 mg PO Q5H PRN PRN Reason: Discomfort Apixaban (Eliquis) 5 mg PO BID [facility] Last Admin: 10/09/17 20:35 Dose: 5 mg Aspirin (Ecotrin) 81 mg PO DAILY [facility] Last Admin: 10/09/17 11:59 Dose: 81 mg Cephalexin HCl (Keflex) 500 mg PO Q6HR [facility] Last Admin: 10/10/17 03:47 Dose: Not Given Dorzolamide HCl (Trusopt) 1 drops EACH EYE BID [facility] Last Admin: 10/09/17 20:35 Dose: 1 drops Escitalopram Oxalate (Lexapro) 20 mg PO DAILY [facility] Fenofibrate (Lofibra) 160 mg PO WB [facility] Latanoprost (Xalatan) 1 drops LEFT EYE HS [facility] Last Admin: 10/09/17 20:36 Dose: 1 drops Lorazepam (Ativan) 1 mg PO Q6H PRN PRN Reason: Extreme agitation Lorazepam (Ativan Inj) 1 mg IM Q6H PRN PRN Reason: Extreme agitation Last Admin: 10/09/17 23:54 Dose: 1 mg Metformin HCl (Glucophage) 500 mg PO BIDWM [facility] Neomycin/Polymyxin/Bacitracin (Neosporin) 1 applic TP BID PRN Niacin (Niaspan) 1,500 mg PO DAILY [facility] Last Admin: 10/09/17 12:00 Dose: 1,500 mg Nitroglycerin (Nitrostat) 0.4 mg SL PRN PRN PRN Reason: Chest pain Olanzapine (Zyprexa Zydis) 2.5 mg PO Q6HR PRN PRN Reason: Agitation Last Admin: 10/09/17 21:22 Dose: 2.5 mg Subjective: Pt seen and chart examined. Nursing reports pt was agitated and combative last night. Pt received Haldol and 2 doses of Ativan overnight. On face to face today the pt is sleeping soundly in his bed. and son are at bedside. We discussed the use Of Zyprexa at bedtime as Haldol has not been beneficial and gave consent. Pt voices no concerns. He is pleasant but confused. Start Time: 11:00 Stop Time: 11:15 Mental Status Exam Vitals: Last Vital Signs Temp 97.3 F 10/10/17 00:00 Pulse 67 10/10/17 00:00 Resp 18 10/10/17 00:00 BP 141/76 H 10/10/17 00:00 Pulse Ox 94 10/10/17 00:00 Height: 1.78 m Weight: 79.5 kg - Mental Status Exam Muscle Strength/Tone: Weak Dressing: Casual Grooming: Fair Attitude: Uncooperative, Combative Motor Activity: Retardation, Tremors Eye Contact: Poor Speech: Slowed, Other (Minimal) Volume: Soft Rhythm: Mumbled Orientation: Disoriented to time, Disoriented to place, Disoriented to situation , Oriented to person Mood: Irritable Rate of Thoughts: Delayed Thought Organization: Disorganized, Confused Associations: Illogical Abstract Reasoning: Impaired, concrete Thought Content: Other (Poverty of thought or out of context to situation) Perception/Psychotic: Psychotic Current Hallucinations: Visual (observed picking out of air) Language: Naming Impaired Fund of Knowledge: Poor fund of knowledge Memory: Poor-immediate, Poor-recent Suicidal Ideation: Persistent Homicidal Ideation: None Insight: Impaired Judgement: Impaired Impulse Control: Poor - Laboratory Result Diagrams: 10/08/17 08:28 10/08/17 08:28 Laboratory Results - last 24 hr 10/10/17 10:54 Glucometer 88 Assessment and Plan (1) Psychosis Current visit: Yes Status: Acute (2) Primary progressive aphasia Current visit: Yes Status: Acute (3) Major neurocognitive disorder Problem details: due to primary progressive aphasia as above, with behavioral disturbance Current visit: Yes Status: Acute (4) BPH (benign prostatic hyperplasia) Current visit: Yes Status: Acute (5) CAD (coronary artery disease) Current visit: Yes Status: Acute (6) CHF (congestive heart failure) Current visit: Yes Status: Acute (7) CKD (chronic kidney disease), stage III Current visit: Yes Status: Acute (8) DMII (diabetes mellitus, type 2) Current visit: Yes Status: Acute (9) Glaucoma Current visit: Yes Status: Acute (10) HTN (hypertension) Current visit: Yes Status: Acute (11) History of prostate cancer Current visit: Yes Status: Acute (12) History of retinal vein occlusion Current visit: Yes Status: Acute (13) History of TIA (transient ischemic attack) Current visit: Yes Status: Acute (14) History of urinary incontinence Current visit: Yes Status: Acute (15) Osteoarthritis Current visit: Yes Status: Acute Hospital Course Summary Disclaimer: The visit summary below is not to be considered part of the above Progress Note. Hospital Course: Plan - 10/08/17 (Admission) Agree with admission to [facility] unit for further psychiatric evaluation treatment. Provide safe and supportive environment. Hospitalist service consulted for medical management. Labs obtained in ED prior to admission and were relatively unremarkable. Will continue to monitor periodically throughout admission. TSH 1.80. Recent right inguinal hernia repair on 09/10/[address] Martinez with subsequent formation of a hematoma which has been managed as an outpatient. Will consult Dr. Martinez for continued management of hematoma. Anemia noted on admission - hgb 12.6. Will assess B12 level. Suspect anemia is secondary to recent surgery. Will continue to monitor closely. Continue home medications including Eliquis for chronic anticoagulation given prior TIA. Monitor blood pressure closely as well as daily weight to monitor for fluid overload. Will check blood sugars daily in AM. Upon discharge, patient's care will be returned to his PCP, Dr. Elise. 10/10/17 Remains agitated and aggressive primarily at night. Pt received Zyprexa 2.5mg last night so will increase to 5mg at HS tonight
[2017-10-10] MEDS: DORZOLAMIDE 2% EYE DROPS 10ml EACH EYE SCH ×3 (16:27→20:30)
[2017-10-10] MEDS: FENOFIBRATE 160 MG TABLET PO SCH (16:50)
[2017-10-10] MEDS: APIXABAN 5 MG TABLET PO SCH ×2 (16:51→20:14)
[2017-10-10] MEDS: METFORMIN 500 MG TABLET PO SCH ×2 (16:51→19:49)
[2017-10-10] MEDS: ASPIRIN *EC* 81 MG TABLET PO SCH (16:51)
[2017-10-10] MEDS: ESCITALOPRAM 20 MG TABLET PO SCH (16:51)
[2017-10-10] MEDS: NIACIN 750 MG PO SCH (16:52)
--- NOTE | 2017-10-10 18:06 | Progress Note ---
Progress Note: Nurse called to report the patient was given several PRN's overnight due to behaviors and today he is very lethargic and not wanting to eat. Labs, vital signs, psychiatric notes reviewed. Will check CBC and BMP in a.m. Would suspect him to be lethargic given the medication he was given overnight, if this persists will evaluate further.
[2017-10-10] MEDS: LATANOPROST 0.005% EYE DROPS 2.5ml LEFT EYE SCH ×2 (20:24→20:33)
[2017-10-10] MEDS: OLANZapine ODT 5 MG TABLET PO SCH (20:26)
[2017-10-11] MEDS: NIACIN 750 MG PO SCH (08:18)
[2017-10-11] MEDS: APIXABAN 5 MG TABLET PO SCH ×3 (08:18→21:40)
[2017-10-11] MEDS: METFORMIN 500 MG TABLET PO SCH ×2 (08:19→16:56)
[2017-10-11] MEDS: ASPIRIN *EC* 81 MG TABLET PO SCH (08:19)
[2017-10-11] MEDS: FENOFIBRATE 160 MG TABLET PO SCH (08:19)
[2017-10-11] MEDS: ESCITALOPRAM 20 MG TABLET PO SCH (08:19)
[2017-10-11] MEDS ORDERED: NS 1,000 ML IV ONE (08:28)
[2017-10-11] MEDS ORDERED: OLANZapine INJ 10 MG VIAL IM ONE (09:20)
--- NOTE | 2017-10-11 11:09 | Neuropsych Progress Note ---
[facility] Subjective Date: 10/11/17 - Sujective/Severity of Illness Medications: Acetaminophen (Tylenol) 325 - 650 mg PO Q5H PRN PRN Reason: Discomfort Apixaban (Eliquis) 5 mg PO BID [facility] Last Admin: 10/11/17 08:18 Dose: 5 mg Aspirin (Ecotrin) 81 mg PO DAILY [facility] Last Admin: 10/11/17 08:19 Dose: 81 mg Cephalexin HCl (Keflex) 500 mg PO Q6HR [facility] Last Admin: 10/11/17 08:18 Dose: 500 mg Dorzolamide HCl (Trusopt) 1 drops EACH EYE BID [facility] Last Admin: 10/10/17 20:30 Dose: 1 drops Escitalopram Oxalate (Lexapro) 20 mg PO DAILY [facility] Last Admin: 10/11/17 08:19 Dose: 20 mg Fenofibrate (Lofibra) 160 mg PO WB [facility] Last Admin: 10/11/17 08:19 Dose: 160 mg Latanoprost (Xalatan) 1 drops LEFT EYE HS [facility] Last Admin: 10/10/17 20:33 Dose: 1 drops Lorazepam (Ativan) 1 mg PO Q6H PRN PRN Reason: Extreme agitation Lorazepam (Ativan Inj) 1 mg IM Q6H PRN PRN Reason: Extreme agitation Last Admin: 10/11/17 09:36 Dose: 1 mg Metformin HCl (Glucophage) 500 mg PO BIDWM [facility] Last Admin: 10/11/17 08:19 Dose: 500 mg Neomycin/Polymyxin/Bacitracin (Neosporin) 1 applic TP BID PRN Niacin (Niaspan) 1,500 mg PO DAILY [facility] Last Admin: 10/11/17 08:18 Dose: 1,500 mg Nitroglycerin (Nitrostat) 0.4 mg SL PRN PRN PRN Reason: Chest pain Olanzapine (Zyprexa Zydis) 2.5 mg PO Q6HR PRN PRN Reason: Agitation Last Admin: 10/09/17 21:22 Dose: 2.5 mg Olanzapine (Zyprexa Zydis) 5 mg PO HS [facility] Last Admin: 10/10/17 20:26 Dose: 5 mg Subjective: Pt seen and chart examined. Nursing reports pt is doing slightly better. Slept better last night and no real behaviors noted. On face to face the pt is resting quietly in bed. He is pleasant but confused. Denies any pain. Tolerating meds Start Time: 11:15 Stop Time: 11:30 Mental Status Exam Vitals: Last Vital Signs Temp 97.8 F 10/11/17 08:00 Pulse 67 10/11/17 08:00 Resp 16 10/11/17 08:00 BP 105/54 10/11/17 08:00 Pulse Ox 100 10/11/17 08:00 Height: 1.78 m Weight: 75.3 kg - Mental Status Exam Muscle Strength/Tone: Weak Dressing: Casual Grooming: Fair Attitude: Uncooperative, Combative Motor Activity: Retardation, Tremors Eye Contact: Poor Speech: Slowed, Other (Minimal) Volume: Soft Rhythm: Mumbled Orientation: Disoriented to time, Disoriented to place, Disoriented to situation , Oriented to person Mood: Irritable Rate of Thoughts: Delayed Thought Organization: Disorganized, Confused Associations: Illogical Abstract Reasoning: Impaired, concrete Thought Content: Other (Poverty of thought or out of context to situation) Perception/Psychotic: Psychotic Current Hallucinations: Visual (observed picking out of air) Language: Naming Impaired Fund of Knowledge: Poor fund of knowledge Memory: Poor-immediate, Poor-recent Suicidal Ideation: Persistent Homicidal Ideation: None Insight: Impaired Judgement: Impaired Impulse Control: Poor - Laboratory Result Diagrams: 10/11/17 07:00 10/11/17 07:00 Laboratory Results - last 24 hr 10/10/17 10/10/17 10/11/17 10:54 13:38 07:00 WBC 6.3 D RBC 4.74 Hgb 14.9 D Hct 44.8 D MCV 94.5 MCH 31.4 MCHC 33.3 RDW Std Deviation 45.1 Plt Count 167 MPV 10.5 Immature Gran % (Auto) 0.2 Neut % (Auto) 51.8 Lymph % (Auto) 33.4 Nobles % (Auto) 10.0 H Eos % (Auto) 4.0 Baso % (Auto) 0.6 Neut # (Auto) 3.3 Lymph # (Auto) 2.1 Nobles # (Auto) 0.6 Eos # (Auto) 0.3 Baso # (Auto) 0.0 Abs Immat Gran (auto) 0.01 Turbidity Sodium Potassium Chloride Carbon Dioxide Anion Gap BUN Creatinine GFR Calculation BUN/Creatinine Ratio Glucose Glucometer 88 81 Calculated Osmolality Calcium Icterus Index Specimen Hemolysis 10/11/17 07:00 WBC RBC Hgb Hct MCV MCH MCHC RDW Std Deviation Plt Count MPV Immature Gran % (Auto) Neut % (Auto) Lymph % (Auto) Nobles % (Auto) Eos % (Auto) Baso % (Auto) Neut # (Auto) Lymph # (Auto) Nobles # (Auto) Eos # (Auto) Baso # (Auto) Abs Immat Gran (auto) Turbidity < 20 Sodium 145 H Potassium 6.2 H* D Chloride 109 H Carbon Dioxide 29 Anion Gap 7 BUN 22.0 H Creatinine 1.2 GFR Calculation 58 BUN/Creatinine Ratio 18 Glucose 95 Glucometer Calculated Osmolality 282 H Calcium 10.5 H D Icterus Index < 2 Specimen Hemolysis 36 H Assessment and Plan (1) Psychosis Current visit: Yes Status: Acute (2) Primary progressive aphasia Current visit: Yes Status: Acute (3) Major neurocognitive disorder Problem details: due to primary progressive aphasia as above, with behavioral disturbance Current visit: Yes Status: Acute (4) BPH (benign prostatic hyperplasia) Current visit: Yes Status: Acute (5) CAD (coronary artery disease) Current visit: Yes Status: Acute (6) CHF (congestive heart failure) Current visit: Yes Status: Acute (7) CKD (chronic kidney disease), stage III Current visit: Yes Status: Acute (8) DMII (diabetes mellitus, type 2) Current visit: Yes Status: Acute (9) Glaucoma Current visit: Yes Status: Acute (10) HTN (hypertension) Current visit: Yes Status: Acute (11) History of prostate cancer Current visit: Yes Status: Acute (12) History of retinal vein occlusion Current visit: Yes Status: Acute (13) History of TIA (transient ischemic attack) Current visit: Yes Status: Acute (14) History of urinary incontinence Current visit: Yes Status: Acute (15) Osteoarthritis Current visit: Yes Status: Acute Hospital Course Summary Disclaimer: The visit summary below is not to be considered part of the above Progress Note. Hospital Course: Plan - 10/08/17 (Admission) Agree with admission to [facility] for further psychiatric evaluation treatment. Provide safe and supportive environment. Hospitalist service consulted for medical management. Labs obtained in ED prior to admission and were relatively unremarkable. Will continue to monitor periodically throughout admission. TSH 1.80. Recent right inguinal hernia repair on 09/10/[address] Martinez with subsequent formation of a hematoma which has been managed as an outpatient. Will consult Dr. Martinez for continued management of hematoma. Anemia noted on admission - hgb 12.6. Will assess B12 level. Suspect anemia is secondary to recent surgery. Will continue to monitor closely. Continue home medications including Eliquis for chronic anticoagulation given prior TIA. Monitor blood pressure closely as well as daily weight to monitor for fluid overload. Will check blood sugars daily in AM. Upon discharge, patient's care will be returned to his PCP, Dr. Elise. 10/10/17 Remains agitated and aggressive primarily at night. Pt received Zyprexa 2.5mg last night so will increase to 5mg at HS tonight 10/11/17 Slightly improved. Continue current care
[2017-10-11] MEDS: DORZOLAMIDE 2% EYE DROPS 10ml EACH EYE SCH ×3 (12:33→21:40)
--- NOTE | 2017-10-11 13:19 | Progress Note ---
- Date 10/11/17 Subjective: Chris is seen today in follow up for his acute psychosis and new hyperkalemia. Nursing notified hospitalist service this morning of critical potassium at 6.2. Specimen was noted to be hemolyzed and patient appeared dehydrated on labs. He was given 1L NS IV with anticipation of rechecking BMP this afternoon. Nurses report that for the past 2 -3 days, he has had poor oral intake, most likely contributing to his dehydration. On exam, he is seen while eating heartily with nursing assistance and reminding. He continues to have increased behaviors in the evenings which appear to be improving. Objective Vital signs: Temperature 97.8 F 10/11/17 08:00 Pulse Rate 67 10/11/17 08:00 Respiratory Rate 16 10/11/17 08:00 Blood Pressure 105/54 10/11/17 08:00 Pulse Oximetry 100 10/11/17 08:00 Height/Weight/BMI: Height 5 ft 10 in Weight 166 lb 0.129 oz Body Mass Index 25.2 Comments: seen in dining room while eating lunch with assistance. - Constitutional Present: no acute distress, well nourished, well developed, thin, cooperative - Routine HEENT Exam Head: Present: normocephalic, atraumatic Eye: Present: PERRL. Absent: conjunctival icterus ENT: Present: mucous membranes moist - Routine Respiratory Exam Present: CTA bilaterally. Absent: rales, respiratory distress, stridor, wheezes , crackles - Routine Cardiovascular Exam Present: RRR, S1, S2 - Routine Abdominal Exam Present: soft, normoactive bowel sounds, non distended, non tender - Routine Extremities Exam Present: no edema, pulses intact - Routine Back/Spine/Pelvis Exam Back/Spine: Present: full ROM. Absent: vertebral tenderness - Routine Musculoskeletal Exam Musculoskeletal: Present: moving extremities well - Routine Skin Exam Present: dry, warm. Absent: jaundice Comments: afebrile - Routine Neurological Exam Present: alert (orienated to self onlyl), moving all extremities speech is disorganized and mumbled. - Routine Lymphatic Exam Lymphatic: Absent: lymphedema - Routine Psychiatric Exam Present: cooperative Results - Labs CBC & Chem 7: 10/11/17 07:00 10/11/17 15:11 Assessment and Plan (1) Psychosis Current visit: Yes Status: Acute (2) Alzheimer's dementia Current visit: Yes Status: Chronic Assessment and Plan: Assessment Psychosis, acute. Alzheimer's dementia. Anemia, unspecified. Anxiety. BPH. CAD. CHF. Chronic anticoagulation on Eliquis. Chronic kidney disease, stage III. Depression. Diabetes Type 2. Glaucoma. Hypertension. History of prostate cancer. History of retinal vein occlusion, 2011. History of TIA. History of urinary incontinence. Osteoarthritis. Plan - 10/11/17 Patient noted to have clinical hyperkalemia today with potassium at 6.2. Specimen was hemolyzed. Patient given 1L NS IV and will reassess BMP this afternoon. Poor oral intake over past 2-3 days per nursing. Currently eating well with nursing assistance and cueing on exam. Encourage oral intake to prevent dehydration. Continued behaviors in evening, though appear to be improving. Continue psychiatric care per Dr. Macias and team. Continue to provide safe and supportive environment. Continue home medications. MD: The patient was discussed with the PA. He was found to be hyperkalemia can today. He was given a liter fluid. His potassium was rechecked and is now less than 5. He is on no medications that elevate potassium. May need to consider a low potassium diet. I would encourage fluid intake. I agree with the above assessment and plan. Resuscitation Status: Do Not Resuscitate - Time spent with patient Time with patient PN: 35 minutes - Physician Narrative Physician: Genesis Lopez MD Narrative: Date: 10/11/17 Time: 1316 Hospital Course Summary Disclaimer: The visit summary below is not to be considered part of the above Progress Note. Hospital Course: Plan - 10/08/17 (Admission) Agree with admission to [facility] for further psychiatric evaluation treatment. Provide safe and supportive environment. Hospitalist service consulted for medical management. Labs obtained in ED prior to admission and were relatively unremarkable. Will continue to monitor periodically throughout admission. TSH 1.80. Recent right inguinal hernia repair on 09/10/[address] Martinez with subsequent formation of a hematoma which has been managed as an outpatient. Will consult Dr. Martinez for continued management of hematoma. Anemia noted on admission - hgb 12.6. Will assess B12 level. Suspect anemia is secondary to recent surgery. Will continue to monitor closely. Continue home medications including Eliquis for chronic anticoagulation given prior TIA. Monitor blood pressure closely as well as daily weight to monitor for fluid overload. Will check blood sugars daily in AM. Upon discharge, patient's care will be returned to his PCP, Dr. Elise. 10/10/17 Remains agitated and aggressive primarily at night. Pt received Zyprexa 2.5mg last night so will increase to 5mg at HS tonight 10/11/17 Slightly improved. Continue current care Plan - 10/11/17 Patient noted to have clinical hyperkalemia today with potassium at 3.2. Specimen was hemolyzed. Patient given 1L NS IV and will reassess BMP this afternoon. Poor oral intake over past 2-3 days per nursing. Currently eating well with nursing assistance and cueing on exam. Encourage oral intake to prevent dehydration. Continued behaviors in evening, though appear to be improving. Continue psychiatric care per Dr. Macias and team. Continue to provide safe and supportive environment. Continue home medications.
[2017-10-11] MEDS: LATANOPROST 0.005% EYE DROPS 2.5ml LEFT EYE SCH ×2 (19:41→21:40)
[2017-10-11] MEDS: OLANZapine ODT 5 MG TABLET PO SCH ×2 (19:42→21:40)
[2017-10-11] MEDS: ACETAMINOPHEN 325 MG TABLET PO PRN (21:25)
[2017-10-11] MEDS: LORazepam 0.5 MG TABLET PO PRN (21:26)
[2017-10-11] MEDS: OLANZapine ODT 5 MG TABLET PO PRN (23:52)
[2017-10-12] MEDS: ACETAMINOPHEN 325 MG TABLET PO PRN ×2 (03:27→19:41)
[2017-10-12] MEDS: ASPIRIN *EC* 81 MG TABLET PO SCH (11:27)
[2017-10-12] MEDS: METFORMIN 500 MG TABLET PO SCH ×2 (11:27→17:37)
[2017-10-12] MEDS: ESCITALOPRAM 20 MG TABLET PO SCH (11:27)
[2017-10-12] MEDS: FENOFIBRATE 160 MG TABLET PO SCH (11:27)
[2017-10-12] MEDS: DORZOLAMIDE 2% EYE DROPS 10ml EACH EYE SCH ×2 (11:27→20:35)
[2017-10-12] MEDS: NIACIN 750 MG PO SCH (11:27)
[2017-10-12] MEDS: APIXABAN 5 MG TABLET PO SCH ×3 (11:28→22:08)
--- NOTE | 2017-10-12 15:26 | Neuropsych Progress Note ---
[facility] Subjective Date: 10/12/17 - Sujective/Severity of Illness Medications: Acetaminophen (Tylenol) 325 - 650 mg PO Q5H PRN PRN Reason: Discomfort Last Admin: 10/12/17 03:27 Dose: 650 mg Apixaban (Eliquis) 5 mg PO BID [facility] Last Admin: 10/12/17 11:28 Dose: 5 mg Aspirin (Ecotrin) 81 mg PO DAILY [facility] Last Admin: 10/12/17 11:27 Dose: 81 mg Cephalexin HCl (Keflex) 500 mg PO Q6HR [facility] Last Admin: 10/12/17 11:28 Dose: 500 mg Dorzolamide HCl (Trusopt) 1 drops EACH EYE BID [facility] Last Admin: 10/12/17 11:27 Dose: 1 drops Escitalopram Oxalate (Lexapro) 20 mg PO DAILY [facility] Last Admin: 10/12/17 11:27 Dose: 20 mg Fenofibrate (Lofibra) 160 mg PO WB [facility] Last Admin: 10/12/17 11:27 Dose: 160 mg Latanoprost (Xalatan) 1 drops LEFT EYE HS [facility] Last Admin: 10/11/17 21:40 Dose: Not Given Lorazepam (Ativan) 1 mg PO Q6H PRN PRN Reason: Extreme agitation Last Admin: 10/11/17 21:26 Dose: 1 mg Lorazepam (Ativan Inj) 1 mg IM Q6H PRN PRN Reason: Extreme agitation Last Admin: 10/11/17 09:36 Dose: 1 mg Metformin HCl (Glucophage) 500 mg PO BIDWM [facility] Last Admin: 10/12/17 11:27 Dose: 500 mg Neomycin/Polymyxin/Bacitracin (Neosporin) 1 applic TP BID PRN Niacin (Niaspan) 1,500 mg PO DAILY [facility] Last Admin: 10/12/17 11:27 Dose: 1,500 mg Nitroglycerin (Nitrostat) 0.4 mg SL PRN PRN PRN Reason: Chest pain Olanzapine (Zyprexa Zydis) 2.5 mg PO Q6HR PRN PRN Reason: Agitation Last Admin: 10/11/17 23:52 Dose: 2.5 mg Olanzapine (Zyprexa Zydis) 5 mg PO HS [facility] Last Admin: 10/11/17 21:40 Dose: Not Given Subjective: Patient seen and chart reviewed. Case discussed with treatment team. On interview, patient is eating lunch with his . He makes illogical statements and appears to be having VH on the table. He is irritable but not aggressive with her. He doesn't answer my specific questions. Nursing staff report patient continues to be aggressive, combative, and impulsive leading to a high fall risk. He has been observed picking things out of the air. Patient has variably adherent with medications. Patient slept 5.25 hours overnight. VSS. Patient is limited. Psychotropic PRNs required in the past 24 hours: multiple. Discussed diagnosis, prognosis, treatment options with patient's and son. All questions answered to their satisfaction. Obtained informed consent for trial of Depakote as I believe antipsychotics, Ativan are not as effective as I would like them to be for agitation. Start Time: 10:20 Stop Time: 10:40 Care: >50% of this visit spent in counseling/coordination care. (discussing care with , son) Mental Status Exam Vitals: Last Vital Signs Temp 99.4 F 10/12/17 08:00 Pulse 78 10/12/17 08:00 Resp 24 10/12/17 08:00 BP 156/70 H 10/12/17 08:00 Pulse Ox 94 10/12/17 08:00 Height: 1.78 m Weight: 75.3 kg - Mental Status Exam Muscle Strength/Tone: Weak Dressing: Casual Grooming: Fair Attitude: Uncooperative, Combative Motor Activity: Retardation, Tremors Eye Contact: Poor Speech: Slowed, Other (Minimal) Volume: Soft Rhythm: Mumbled Sensory: Confused Orientation: Disoriented to time, Disoriented to place, Disoriented to situation , Oriented to person Mood: Irritable Affect: Hostile Rate of Thoughts: Delayed Thought Organization: Disorganized, Confused Associations: Illogical Abstract Reasoning: Impaired, concrete Thought Content: Other (Poverty of thought or out of context to situation) Perception/Psychotic: Psychotic Current Hallucinations: Visual (observed picking out of air) Language: Naming Impaired Fund of Knowledge: Poor fund of knowledge Memory: Poor-immediate, Poor-recent Suicidal Ideation: Other (Had prior to admission, no SI observed today) Homicidal Ideation: None Insight: Impaired Judgement: Impaired Impulse Control: Poor - Laboratory Result Diagrams: 10/11/17 07:00 10/11/17 15:11 Laboratory Results - last 24 hr 10/11/17 10/12/17 15:11 07:08 Turbidity < 20 Sodium 141 Potassium 4.0 D Chloride 110 H Carbon Dioxide 23 Anion Gap 8 BUN 23.0 H Creatinine 1.1 GFR Calculation 65 BUN/Creatinine Ratio 21 Glucose 106 Glucometer 161 Calculated Osmolality 275 Calcium 9.4 D Icterus Index < 2 Specimen Hemolysis < 15 Assessment and Plan (1) Psychosis Problem details: Post-operative delirium suspected Current visit: Yes Status : Acute (2) Major neurocognitive disorder Problem details: due to primary progressive aphasia as above, with behavioral disturbance Current visit: Yes Status: Acute (3) Primary progressive aphasia Current visit: Yes Status: Acute (4) BPH (benign prostatic hyperplasia) Current visit: Yes Status: Acute (5) CAD (coronary artery disease) Current visit: Yes Status: Acute (6) CHF (congestive heart failure) Current visit: Yes Status: Acute (7) CKD (chronic kidney disease), stage III Current visit: Yes Status: Acute (8) DMII (diabetes mellitus, type 2) Current visit: Yes Status: Acute (9) Glaucoma Current visit: Yes Status: Acute (10) HTN (hypertension) Current visit: Yes Status: Acute (11) History of prostate cancer Current visit: Yes Status: Acute (12) History of retinal vein occlusion Current visit: Yes Status: Acute (13) History of TIA (transient ischemic attack) Current visit: Yes Status: Acute (14) History of urinary incontinence Current visit: Yes Status: Acute (15) Osteoarthritis Current visit: Yes Status: Acute Will start Depakote sprinkles 250mg PO with dinner and likely increase in the morning, will plan to taper Zyprexa once agitation has decreased. Informed consent given by patient's /DPOA. Monitor mood, behavior and response to treatment. Hospital Course Summary Disclaimer: The visit summary below is not to be considered part of the above Progress Note. Hospital Course: Plan - 10/08/17 (Admission) Agree with admission to [facility] for further psychiatric evaluation treatment. Provide safe and supportive environment. Hospitalist service consulted for medical management. Labs obtained in ED prior to admission and were relatively unremarkable. Will continue to monitor periodically throughout admission. TSH 1.80. Recent right inguinal hernia repair on 09/10/[address] Martinez with subsequent formation of a hematoma which has been managed as an outpatient. Will consult Dr. Martinez for continued management of hematoma. Anemia noted on admission - hgb 12.6. Will assess B12 level. Suspect anemia is secondary to recent surgery. Will continue to monitor closely. Continue home medications including Eliquis for chronic anticoagulation given prior TIA. Monitor blood pressure closely as well as daily weight to monitor for fluid overload. Will check blood sugars daily in AM. Upon discharge, patient's care will be returned to his PCP, Dr. Elise. 10/15/16 Psych: Zyprexa started over the weekend and titrated to 5mg PO q HS. Limited effectiveness. Will now start Depakote sprinkles 250mg PO with dinner and likely increase in the morning, will plan to taper Zyprexa once agitation has decreased. Informed consent given by patient's /DPOA. Monitor mood, behavior and response to treatment.
[2017-10-12] MEDS: OLANZapine ODT 5 MG TABLET PO SCH ×2 (19:37→22:11)
[2017-10-12] MEDS: LORazepam 0.5 MG TABLET PO PRN (19:42)
[2017-10-12] MEDS: LATANOPROST 0.005% EYE DROPS 2.5ml LEFT EYE SCH (22:11)
[2017-10-12] MEDS: OLANZapine ODT 5 MG TABLET PO PRN (23:38)
[2017-10-13] MEDS: ACETAMINOPHEN 325 MG TABLET PO PRN (10:44)
[2017-10-13] MEDS: NIACIN 750 MG PO SCH (10:45)
[2017-10-13] MEDS: ESCITALOPRAM 20 MG TABLET PO SCH (10:45)
[2017-10-13] MEDS: FENOFIBRATE 160 MG TABLET PO SCH (10:45)
[2017-10-13] MEDS: METFORMIN 500 MG TABLET PO SCH ×2 (10:45→17:15)
[2017-10-13] MEDS: APIXABAN 5 MG TABLET PO SCH ×2 (10:45→20:04)
[2017-10-13] MEDS: DORZOLAMIDE 2% EYE DROPS 10ml EACH EYE SCH (10:46)
[2017-10-13] MEDS: ASPIRIN *EC* 81 MG TABLET PO SCH (10:46)
[2017-10-13] MEDS: DIVALPROEX SPRINKLE 125 MG CAPSULE PO SCH ×2 (12:12→20:04)
--- NOTE | 2017-10-13 14:15 | Neuropsych Progress Note ---
[facility] Subjective Date: 10/13/17 - Sujective/Severity of Illness Medications: Acetaminophen (Tylenol) 325 - 650 mg PO Q5H PRN PRN Reason: Discomfort Last Admin: 10/13/17 10:44 Dose: 650 mg Apixaban (Eliquis) 5 mg PO BID [facility] Last Admin: 10/13/17 10:45 Dose: 5 mg Aspirin (Ecotrin) 81 mg PO DAILY [facility] Last Admin: 10/13/17 10:46 Dose: 81 mg Cephalexin HCl (Keflex) 500 mg PO Q6HR [facility] Last Admin: 10/13/17 10:45 Dose: 500 mg Divalproex Sodium (Depakote Sprinkle) 250 mg PO BID [facility] Last Admin: 10/13/17 12:12 Dose: 250 mg Dorzolamide HCl (Trusopt) 1 drops EACH EYE BID [facility] Last Admin: 10/13/17 10:46 Dose: 1 drops Escitalopram Oxalate (Lexapro) 20 mg PO DAILY [facility] Last Admin: 10/13/17 10:45 Dose: 20 mg Fenofibrate (Lofibra) 160 mg PO WB [facility] Last Admin: 10/13/17 10:45 Dose: 160 mg Latanoprost (Xalatan) 1 drops LEFT EYE HS [facility] Last Admin: 10/12/17 22:11 Dose: Not Given Lorazepam (Ativan) 1 mg PO Q6H PRN PRN Reason: Extreme agitation Last Admin: 10/12/17 19:42 Dose: 1 mg Lorazepam (Ativan Inj) 1 mg IM Q6H PRN PRN Reason: Extreme agitation Last Admin: 10/11/17 09:36 Dose: 1 mg Metformin HCl (Glucophage) 500 mg PO BIDWM [facility] Last Admin: 10/13/17 10:45 Dose: 500 mg Neomycin/Polymyxin/Bacitracin (Neosporin) 1 applic TP BID PRN Niacin (Niaspan) 1,500 mg PO DAILY [facility] Last Admin: 10/13/17 10:45 Dose: 1,500 mg Nitroglycerin (Nitrostat) 0.4 mg SL PRN PRN PRN Reason: Chest pain Olanzapine (Zyprexa Zydis) 2.5 mg PO Q6HR PRN PRN Reason: Agitation Last Admin: 10/12/17 23:38 Dose: 2.5 mg Olanzapine (Zyprexa Zydis) 5 mg PO HS [facility] Last Admin: 10/12/17 22:11 Dose: Not Given Subjective: Patient seen and chart reviewed. Case discussed with treatment team. On interview, patient is walking in the hallway with staff. He appears to be in a good mood. He attempts to answer my interview questions but his answers are illogical due to expressive aphasia. Family has shared that patient could be quite tense, labile, etc. at baseline years ago. His son has been diagnosed as bipolar. Nursing staff report patient continues to be aggressive, combative, and impulsive leading to a high fall risk. He has been observed picking things out of the air. Patient has variably adherent with medications. VSS. Appetite is limited. Psychotropic PRNs required in the past 24 hours: Ativan 1mg PO. Depakote was not given last night -- will start sprinkles this morning at 250mg PO BID. Start Time: 10:00 Stop Time: 10:20 Mental Status Exam Vitals: Last Vital Signs Temp 97.2 F 10/13/17 08:00 Pulse 78 10/13/17 08:00 Resp 16 10/13/17 08:00 BP 89/60 10/13/17 08:00 Pulse Ox 96 10/13/17 08:00 Height: 1.78 m Weight: 75.3 kg - Mental Status Exam Muscle Strength/Tone: Weak Dressing: Casual Grooming: Fair Attitude: Uncooperative, Combative (at times) Motor Activity: Retardation, Tremors Eye Contact: Poor Speech: Slowed, Other (Minimal) Volume: Soft Rhythm: Mumbled Orientation: Disoriented to time, Disoriented to place, Disoriented to situation , Oriented to person Mood: Neutral (labile affect) Rate of Thoughts: Delayed Thought Organization: Disorganized, Confused Associations: Illogical Abstract Reasoning: Impaired, concrete Thought Content: Other (Poverty of thought or out of context to situation) Perception/Psychotic: Psychotic Current Hallucinations: Visual (observed picking out of air) Language: Naming Impaired Fund of Knowledge: Poor fund of knowledge Memory: Poor-immediate, Poor-recent Suicidal Ideation: Other (Had prior to admission, no SI observed today) Homicidal Ideation: None Insight: Impaired Judgement: Impaired Impulse Control: Poor - Laboratory Result Diagrams: 10/11/17 07:00 10/11/17 15:11 Assessment and Plan (1) Psychosis Problem details: Post-operative delirium suspected Current visit: Yes Status : Acute (2) 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, moderate to severe, with behavioral disturbance Current visit: Yes Status: Acute (3) Primary progressive aphasia Current visit: Yes Status: Acute (4) BPH (benign prostatic hyperplasia) Current visit: Yes Status: Acute (5) CAD (coronary artery disease) Current visit: Yes Status: Acute (6) CHF (congestive heart failure) Current visit: Yes Status: Acute (7) CKD (chronic kidney disease), stage III Current visit: Yes Status: Acute (8) DMII (diabetes mellitus, type 2) Current visit: Yes Status: Acute (9) Glaucoma Current visit: Yes Status: Acute (10) HTN (hypertension) Current visit: Yes Status: Acute (11) History of prostate cancer Current visit: Yes Status: Acute (12) History of retinal vein occlusion Current visit: Yes Status: Acute (13) History of TIA (transient ischemic attack) Current visit: Yes Status: Acute (14) History of urinary incontinence Current visit: Yes Status: Acute (15) Osteoarthritis Current visit: Yes Status: Acute Patient did not receive Depakote last night. Will give Depakote sprinkles 250mg PO BID starting this AM and begin to taper Zyprexa. Hospital Course Summary Disclaimer: The visit summary below is not to be considered part of the above Progress Note. Hospital Course: Plan - 10/08/17 (Admission) Agree with admission to [facility] for further psychiatric evaluation treatment. Provide safe and supportive environment. Hospitalist service consulted for medical management. Labs obtained in ED prior to admission and were relatively unremarkable. Will continue to monitor periodically throughout admission. TSH 1.80. Recent right inguinal hernia repair on 09/10/[address] Martinez with subsequent formation of a hematoma which has been managed as an outpatient. Will consult Dr. Martinez for continued management of hematoma. Anemia noted on admission - hgb 12.6. Will assess B12 level. Suspect anemia is secondary to recent surgery. Will continue to monitor closely. Continue home medications including Eliquis for chronic anticoagulation given prior TIA. Monitor blood pressure closely as well as daily weight to monitor for fluid overload. Will check blood sugars daily in AM. Upon discharge, patient's care will be returned to his PCP, Dr. Elise. 10/12/17 Psych: Zyprexa started over the weekend and titrated to 5mg PO q HS. Limited effectiveness. Will now start Depakote sprinkles 250mg PO with dinner and likely increase in the morning, will plan to taper Zyprexa once agitation has decreased. Informed consent given by patient's /DPOA. Monitor mood, behavior and response to treatment. 10/13/17 Psych: Patient did not receive Depakote last night. Will give Depakote sprinkles 250mg PO BID starting this AM and begin to taper Zyprexa once agitation decreases.
[2017-10-13] MEDS ORDERED: LORazepam 1 MG TABLET PO PRN (14:54)
[2017-10-13] MEDS: OLANZapine ODT 5 MG TABLET PO SCH (20:05)
[2017-10-14] MEDS: DORZOLAMIDE 2% EYE DROPS 10ml EACH EYE SCH ×3 (00:36→20:08)
[2017-10-14] MEDS: LATANOPROST 0.005% EYE DROPS 2.5ml LEFT EYE SCH ×2 (00:36→20:09)
[2017-10-14] MEDS: OLANZapine ODT 5 MG TABLET PO PRN (00:38)
[2017-10-14] MEDS: FENOFIBRATE 160 MG TABLET PO SCH (08:25)
[2017-10-14] MEDS: ASPIRIN *EC* 81 MG TABLET PO SCH (08:25)
[2017-10-14] MEDS: APIXABAN 5 MG TABLET PO SCH ×3 (08:25→21:13)
[2017-10-14] MEDS: METFORMIN 500 MG TABLET PO SCH ×2 (08:25→17:24)
[2017-10-14] MEDS ORDERED: Bisacodyl EC TAB 5 MG TABLET PO PRN (08:26)
[2017-10-14] MEDS: DIVALPROEX SPRINKLE 125 MG CAPSULE PO SCH ×2 (08:26→20:08)
[2017-10-14] MEDS: NIACIN 750 MG PO SCH (08:27)
[2017-10-14] MEDS: ESCITALOPRAM 20 MG TABLET PO SCH (08:27)
--- NOTE | 2017-10-14 09:29 | Progress Note ---
- Date 10/14/17 Subjective: Chris is seen today while still in bed. Nursing present on exam due to concerns about recent combativeness this morning. Nursing reports that he typically has behaviors in the evening but has had increased combativeness this morning requiring PRN ativan. He is sitting in bed, actively reaching over the side of the bed to the floor, apparently trying to sweet pickle maker small items from the floor which are not present. His speech is mumbled and illogical. Nursing reports that during the night, he is requiring 4:1 care at times. His appetite is poor but bowels are moving. He was seen and evaluated by Dr. Martinez regarding his recent inguinal surgery in 08/[address] Martinez initiated Keflex on 10/08/17 due to some concern about increased erythema around the site as prophylaxis treatment. Objective Vital signs: Temperature 97.2 F 10/13/17 08:00 Pulse Rate 78 10/13/17 08:00 Respiratory Rate 16 10/13/17 08:00 Blood Pressure 89/60 10/13/17 08:00 Pulse Oximetry 96 10/13/17 08:00 Height/Weight/BMI: Height 5 ft 10 in Weight 165 lb 5.547 oz Body Mass Index 25.2 Comments: resting in bed, actively picking at the floor with nothing present. - Constitutional Present: no acute distress, well nourished, well developed, thin, cooperative Comments: increased behaviors this morning requiring PRN ativan. - Routine HEENT Exam Head: Present: normocephalic, atraumatic Eye: Present: PERRL. Absent: conjunctival icterus ENT: Present: mucous membranes dry - Routine Respiratory Exam Present: CTA bilaterally. Absent: rales, rhonchi, stridor, wheezes, crackles - Routine Cardiovascular Exam Present: RRR, S1, S2 - Routine Abdominal Exam Present: soft, normoactive bowel sounds, non distended, non tender - Routine Extremities Exam Present: no edema, full ROM, pulses intact - Routine Back/Spine/Pelvis Exam Back/Spine: Present: full ROM. Absent: vertebral tenderness - Routine Musculoskeletal Exam Musculoskeletal: Present: moving extremities well - Routine Skin Exam Present: dry, warm. Absent: jaundice Comments: afebrile - Routine Neurological Exam Present: alert, oriented X3 (orientated to self only), moving all extremities speech is illogical, mumbled and disorganized. - Routine Lymphatic Exam Lymphatic: Absent: lymphedema - Routine Psychiatric Exam Present: cooperative Results - Labs CBC & Chem 7: 10/11/17 07:00 10/11/17 15:11 Assessment and Plan (1) Alzheimer's dementia Current visit: Yes Status: Chronic (2) Psychosis Problem details: Post-operative delirium suspected Current visit: Yes Status : Acute Assessment and Plan: Assessment Psychosis, acute. Alzheimer's dementia. Anemia, unspecified. Anxiety. BPH. CAD. CHF. Chronic anticoagulation on Eliquis. Chronic kidney disease, stage III. Depression. Diabetes Type 2. Glaucoma. Hypertension. History of prostate cancer. History of retinal vein occlusion, 2011. History of TIA. History of urinary incontinence. Osteoarthritis. Plan - 10/14/17 Currently patient appears to be having visual hallucinations, picking at items not seen on the floor. Requiring 4:1 care at times and clinical concern for safety. Would recommend sitter with patient at all times due to poor safety awareness and risk for falls. Continue psychiatric care per Dr. Macias and team. Provide safe and supportive environment. Patient noted to have clinical hyperkalemia on 10/11/17 with potassium at 6.2. Specimen was hemolyzed. Patient given 1L NS IV. Repeat labs were improved and unremarkable with potassium at 4.0. Will continue to monitor periodically throughout admission. Will reassess CBC and BMP today to monitor blood counts, electrolytes and renal function. Continue to encourage oral intake to prevent dehydration. Will need nursing assistance. DVT Prophylaxis: Eliquis Resuscitation Status: Do Not Resuscitate - Time spent with patient Time with patient PN: 25 minutes - Physician Narrative Physician: Bessie Bay MD Narrative: Date: 10/14/17 Time: 09 Hospital Course Summary Disclaimer: The visit summary below is not to be considered part of the above Progress Note. Hospital Course: Plan - 10/08/17 (Admission) Agree with admission to [facility] for further psychiatric evaluation treatment. Provide safe and supportive environment. Hospitalist service consulted for medical management. Labs obtained in ED prior to admission and were relatively unremarkable. Will continue to monitor periodically throughout admission. TSH 1.80. Recent right inguinal hernia repair on 09/10/[address] Martinez with subsequent formation of a hematoma which has been managed as an outpatient. Will consult Dr. Martinez for continued management of hematoma. Anemia noted on admission - hgb 12.6. Will assess B12 level. Suspect anemia is secondary to recent surgery. Will continue to monitor closely. Continue home medications including Eliquis for chronic anticoagulation given prior TIA. Monitor blood pressure closely as well as daily weight to monitor for fluid overload. Will check blood sugars daily in AM. Upon discharge, patient's care will be returned to his PCP, Dr. Elise. 10/12/17 Psych: Zyprexa started over the weekend and titrated to 5mg PO q HS. Limited effectiveness. Will now start Depakote sprinkles 250mg PO with dinner and likely increase in the morning, will plan to taper Zyprexa once agitation has decreased. Informed consent given by patient's /DPOA. Monitor mood, behavior and response to treatment. 10/13/17 Psych: Patient did not receive Depakote last night. Will give Depakote sprinkles 250mg PO BID starting this AM and begin to taper Zyprexa once agitation decreases. Plan - 10/14/17 Currently patient appears to be having visual hallucinations, picking at items not seen on the floor. Requiring 4:1 care at times and clinical concern for safety. Would recommend sitter with patient at all times due to poor safety awareness and risk for falls. Continue psychiatric care per Dr. Macias and team. Provide safe and supportive environment. Patient noted to have clinical hyperkalemia on 10/11/17 with potassium at 6.2. Specimen was hemolyzed. Patient given 1L NS IV. Repeat labs were improved and unremarkable with potassium at 4.0. Will continue to monitor periodically throughout admission. Will reassess CBC and BMP today to monitor blood counts, electrolytes and renal function. Continue to encourage oral intake to prevent dehydration. Will need nursing assistance.
[2017-10-14] MEDS: ACETAMINOPHEN 325 MG TABLET PO PRN (10:29)
--- NOTE | 2017-10-14 16:19 | Neuropsych Progress Note ---
[facility] Subjective Date: 10/15/17 - Sujective/Severity of Illness Medications: Acetaminophen (Tylenol) 325 - 650 mg PO Q5H PRN PRN Reason: Discomfort Last Admin: 10/14/17 10:29 Dose: 650 mg Apixaban (Eliquis) 5 mg PO BID [facility] Last Admin: 10/14/17 08:25 Dose: 5 mg Aspirin (Ecotrin) 81 mg PO DAILY [facility] Last Admin: 10/14/17 08:25 Dose: 81 mg Bisacodyl (Dulcolax) 10 mg PO DAILY PRN PRN Reason: Constipation Last Admin: 10/14/17 08:41 Dose: 10 mg Cephalexin HCl (Keflex) 500 mg PO Q6HR [facility] Last Admin: 10/14/17 08:25 Dose: 500 mg Divalproex Sodium (Depakote Sprinkle) 250 mg PO BID [facility] Last Admin: 10/14/17 08:26 Dose: 250 mg Dorzolamide HCl (Trusopt) 1 drops EACH EYE BID [facility] Last Admin: 10/14/17 08:26 Dose: 1 drops Escitalopram Oxalate (Lexapro) 20 mg PO DAILY [facility] Last Admin: 10/14/17 08:27 Dose: 20 mg Fenofibrate (Lofibra) 160 mg PO WB [facility] Last Admin: 10/14/17 08:25 Dose: 160 mg Latanoprost (Xalatan) 1 drops LEFT EYE HS [facility] Last Admin: 10/14/17 00:36 Dose: Not Given Lorazepam (Ativan Inj) 1 mg IM Q6H PRN PRN Reason: Extreme agitation Last Admin: 10/14/17 13:56 Dose: 1 mg Lorazepam (Ativan) 1 mg PO Q6H PRN Last Admin: 10/13/17 15:55 Dose: 1 mg Metformin HCl (Glucophage) 500 mg PO BIDWM [facility] Last Admin: 10/14/17 08:25 Dose: 500 mg Neomycin/Polymyxin/Bacitracin (Neosporin) 1 applic TP BID PRN Niacin (Niaspan) 1,500 mg PO DAILY [facility] Last Admin: 10/14/17 08:27 Dose: 1,500 mg Nitroglycerin (Nitrostat) 0.4 mg SL PRN PRN PRN Reason: Chest pain Olanzapine (Zyprexa Zydis) 2.5 mg PO Q6HR PRN PRN Reason: Agitation Last Admin: 10/14/17 00:38 Dose: 2.5 mg Olanzapine (Zyprexa Zydis) 5 mg PO HS [facility] Last Admin: 10/13/17 20:05 Dose: 5 mg Subjective: Patient seen and chart reviewed. Case discussed with treatment team. On interview, patient is walking in the hallway with staff. He doesn't answer any of my questions. Nursing staff report patient aggression seems to be decreasing (still present, especially with cares) but he continues to be restless, picking things out of air frequently and having VH. Patient has variably adherent with medications. VSS. Appetite is limited. Psychotropic PRNs required in the past 24 hours: multiple. Start Time: 12:00 Stop Time: 12:20 Mental Status Exam Vitals: Last Vital Signs Temp 97.8 F 10/14/17 08:00 Pulse 75 10/14/17 08:00 Resp 16 10/14/17 08:00 BP 111/60 10/14/17 08:00 Pulse Ox 97 10/14/17 08:00 Height: 1.78 m Weight: 75 kg - Mental Status Exam Muscle Strength/Tone: Weak Dressing: Casual Grooming: Fair Attitude: Uncooperative, Combative (at times) Motor Activity: Retardation, Tremors, Restless (at tiems) Eye Contact: Poor Speech: Slowed, Other (Minimal) Volume: Soft Rhythm: Mumbled Orientation: Disoriented to time, Disoriented to place, Disoriented to situation , Oriented to person Mood: Neutral (labile affect) Affect: Blunted Rate of Thoughts: Delayed Thought Organization: Disorganized, Confused Associations: Illogical Abstract Reasoning: Impaired, concrete Thought Content: Other (Poverty of thought or out of context to situation) Perception/Psychotic: Psychotic Current Hallucinations: Visual (observed picking out of air) Language: Naming Impaired Fund of Knowledge: Poor fund of knowledge Memory: Poor-immediate, Poor-recent Suicidal Ideation: Other (Had prior to admission, no SI observed today) Homicidal Ideation: None Insight: Impaired Judgement: Impaired Impulse Control: Poor - Laboratory Result Diagrams: 10/14/17 09:43 10/14/17 09:43 Laboratory Results - last 24 hr 10/14/17 10/14/17 10/14/17 06:19 09:43 09:43 WBC 6.1 RBC 4.08 L Hgb 13.1 L Hct 39.7 L MCV 97.3 MCH 32.1 MCHC 33.0 RDW Std Deviation 46.1 Plt Count 90 L D MPV 10.3 Immature Gran % (Auto) 0.2 Neut % (Auto) 72.8 H Lymph % (Auto) 14.0 L [place] % (Auto) 7.1 Eos % (Auto) 5.6 H Baso % (Auto) 0.3 Neut # (Auto) 4.4 Lymph # (Auto) 0.9 L [place] # (Auto) 0.4 Eos # (Auto) 0.3 Baso # (Auto) 0.0 Abs Immat Gran (auto) 0.01 Turbidity < 20 Sodium 142 Potassium 4.3 Chloride 107 Carbon Dioxide 26 Anion Gap 9 BUN 27.0 H Creatinine 1.3 D GFR Calculation 53 BUN/Creatinine Ratio 21 Glucose 123 H Glucometer 93 Calculated Osmolality 279 Calcium 9.8 Icterus Index < 2 Specimen Hemolysis < 15 Assessment and Plan (1) Psychosis Problem details: Post-operative delirium suspected Current visit: Yes Status : Acute (2) 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, moderate to severe, with behavioral disturbance Current visit: Yes Status: Acute (3) Primary progressive aphasia Current visit: Yes Status: Acute (4) BPH (benign prostatic hyperplasia) Current visit: Yes Status: Acute (5) CAD (coronary artery disease) Current visit: Yes Status: Acute (6) CHF (congestive heart failure) Current visit: Yes Status: Acute (7) CKD (chronic kidney disease), stage III Current visit: Yes Status: Acute (8) DMII (diabetes mellitus, type 2) Current visit: Yes Status: Acute (9) Glaucoma Current visit: Yes Status: Acute (10) HTN (hypertension) Current visit: Yes Status: Acute (11) History of prostate cancer Current visit: Yes Status: Acute (12) History of retinal vein occlusion Current visit: Yes Status: Acute (13) History of TIA (transient ischemic attack) Current visit: Yes Status: Acute (14) History of urinary incontinence Current visit: Yes Status: Acute (15) Osteoarthritis Current visit: Yes Status: Acute Continue current care while Depakote is approaching steady-state. Aggression is decreasing overall. Hospital Course Summary Disclaimer: The visit summary below is not to be considered part of the above Progress Note. Hospital Course: Plan - 10/08/17 (Admission) Agree with admission to [facility] for further psychiatric evaluation treatment. Provide safe and supportive environment. Hospitalist service consulted for medical management. Labs obtained in ED prior to admission and were relatively unremarkable. Will continue to monitor periodically throughout admission. TSH 1.80. Recent right inguinal hernia repair on 09/10/[address] Martinez with subsequent formation of a hematoma which has been managed as an outpatient. Will consult Dr. Martinez for continued management of hematoma. Anemia noted on admission - hgb 12.6. Will assess B12 level. Suspect anemia is secondary to recent surgery. Will continue to monitor closely. Continue home medications including Eliquis for chronic anticoagulation given prior TIA. Monitor blood pressure closely as well as daily weight to monitor for fluid overload. Will check blood sugars daily in AM. Upon discharge, patient's care will be returned to his PCP, Dr. Elise. 10/12/17 Psych: Zyprexa started over the weekend and titrated to 5mg PO q HS. Limited effectiveness. Will now start Depakote sprinkles 250mg PO with dinner and likely increase in the morning, will plan to taper Zyprexa once agitation has decreased. Informed consent given by patient's /DPOA. Monitor mood, behavior and response to treatment. 10/13/17 Psych: Patient did not receive Depakote last night. Will give Depakote sprinkles 250mg PO BID starting this AM and begin to taper Zyprexa once agitation decreases. Plan - 10/14/17 Currently patient appears to be having visual hallucinations, picking at items not seen on the floor. Requiring 4:1 care at times and clinical concern for safety. Would recommend sitter with patient at all times due to poor safety awareness and risk for falls. Continue psychiatric care per Dr. Macias and team. Provide safe and supportive environment. Patient noted to have clinical hyperkalemia on 10/11/17 with potassium at 6.2. Specimen was hemolyzed. Patient given 1L NS IV. Repeat labs were improved and unremarkable with potassium at 4.0. Will continue to monitor periodically throughout admission. Will reassess CBC and BMP today to monitor blood counts, electrolytes and renal function. Continue to encourage oral intake to prevent dehydration. Will need nursing assistance. 10/14/17 Psych: Continue current care while Depakote is approaching steady- state. Aggression is decreasing overall. Discussed care with patient's .
[2017-10-14] MEDS: OLANZapine ODT 5 MG TABLET PO SCH ×2 (20:08→21:13)
[2017-10-15] MEDS: DORZOLAMIDE 2% EYE DROPS 10ml EACH EYE SCH ×3 (01:24→20:07)
[2017-10-15] MEDS: LATANOPROST 0.005% EYE DROPS 2.5ml LEFT EYE SCH ×2 (01:24→20:09)
[2017-10-15] MEDS: OLANZapine ODT 5 MG TABLET PO PRN (02:54)
[2017-10-15] MEDS: ESCITALOPRAM 20 MG TABLET PO SCH (10:45)
[2017-10-15] MEDS: METFORMIN 500 MG TABLET PO SCH ×2 (10:45→20:08)
[2017-10-15] MEDS: APIXABAN 5 MG TABLET PO SCH ×2 (10:45→20:08)
[2017-10-15] MEDS: NIACIN 750 MG PO SCH (10:45)
[2017-10-15] MEDS: DIVALPROEX SPRINKLE 125 MG CAPSULE PO SCH ×2 (10:45→20:06)
[2017-10-15] MEDS: FENOFIBRATE 160 MG TABLET PO SCH (10:45)
[2017-10-15] MEDS: ASPIRIN *EC* 81 MG TABLET PO SCH (10:45)
[2017-10-15] MEDS ORDERED: LORazepam 1 MG TABLET PO PRN (14:01)
--- NOTE | 2017-10-15 14:05 | Neuropsych Progress Note ---
[facility] Subjective Date: 10/15/17 - Sujective/Severity of Illness Medications: Acetaminophen (Tylenol) 325 - 650 mg PO Q5H PRN PRN Reason: Discomfort Last Admin: 10/14/17 10:29 Dose: 650 mg Apixaban (Eliquis) [address] [facility] Last Admin: 10/15/17 10:45 Dose: 5 mg Aspirin (Ecotrin) [address] [facility] Last Admin: 10/15/17 10:45 Dose: 81 mg Bisacodyl (Dulcolax) 10 mg PO DAILY PRN PRN Reason: Constipation Last Admin: 10/14/17 08:41 Dose: 10 mg Cephalexin HCl (Keflex) [address] [facility] Last Admin: 10/15/17 10:45 Dose: 500 mg Divalproex Sodium (Depakote Sprinkle) [address] [facility] Last Admin: 10/15/17 10:45 Dose: 250 mg Dorzolamide HCl (Trusopt) [address]YE [address] [facility] Last Admin: 10/15/17 10:45 Dose: 1 drops Escitalopram Oxalate (Lexapro) [address] [facility] Last Admin: 10/15/17 10:45 Dose: 20 mg Fenofibrate (Lofibra) [address] [facility] Last Admin: 10/15/17 10:45 Dose: 160 mg Latanoprost (Xalatan) [address] [facility] Last Admin: 10/15/17 01:24 Dose: Not Given Lorazepam (Ativan Inj) 0.5 mg IM Q6H PRN PRN Reason: Extreme agitation Lorazepam (Ativan) 0.5 mg PO Q6H PRN Metformin HCl (Glucophage) [address] [facility] Last Admin: 10/15/17 10:45 Dose: 500 mg Neomycin/Polymyxin/Bacitracin (Neosporin) 1 applic TP BID PRN Niacin (Niaspan) 1,[address] [facility] Last Admin: 10/15/17 10:45 Dose: 1,500 mg Nitroglycerin (Nitrostat) 0.4 mg SL PRN PRN PRN Reason: Chest pain Olanzapine (Zyprexa Zydis) 2.5 mg PO Q6HR PRN PRN Reason: Agitation Last Admin: 10/15/17 02:54 Dose: 2.5 mg Olanzapine (Zyprexa Zydis) 2.5 mg PO HS [facility] Subjective: Patient seen and chart reviewed. Case discussed with treatment team. On interview, patient is walking in the hallway with staff. He doesn't answer any of my questions. Nursing staff report patient aggression seems to be decreasing (still present, especially with cares) but he continues to be restless, picking things out of air frequently and having VH. Patient has variably adherent with medications. VSS. Appetite is limited. Psychotropic PRNs required in the past 24 hours: multiple. As sleep cycle disturbance is characteristic of delirium, will suggest that nursing staff allow patient to walk overnight rather than continuing to redirect him back to staying in bed. Again discussed care, treatment, progress with patient's and all questions answered to her satisfaction. Start Time: 09:40 Stop Time: 10:00 Mental Status Exam Vitals: Last Vital Signs Temp 97.5 F 10/14/17 21:32 Pulse 70 10/14/17 21:32 Resp 16 10/14/17 21:32 BP 90/49 10/14/17 21:32 Pulse Ox 97 10/14/17 21:32 Height: 1.78 m Weight: 75 kg - Mental Status Exam Muscle Strength/Tone: Weak Dressing: Casual Grooming: Fair Attitude: Uncooperative, Combative (at times) Motor Activity: Retardation, Tremors, Restless (at tiems) Eye Contact: Poor Speech: Slowed, Other (Minimal) Volume: Soft Rhythm: Mumbled Orientation: Disoriented to time, Disoriented to place, Disoriented to situation , Oriented to person Mood: Neutral (labile affect) Affect: Blunted Rate of Thoughts: Delayed Thought Organization: Disorganized, Confused Associations: Illogical Abstract Reasoning: Impaired, concrete Thought Content: Other (Poverty of thought or out of context to situation) Perception/Psychotic: Psychotic Current Hallucinations: Visual (observed picking out of air) Language: Naming Impaired Fund of Knowledge: Poor fund of knowledge Memory: Poor-immediate, Poor-recent Suicidal Ideation: Other (Had prior to admission, no SI observed today) Homicidal Ideation: None Insight: Impaired Judgement: Impaired Impulse Control: Poor - Laboratory Result Diagrams: 10/14/17 09:43 10/14/17 09:43 Assessment and Plan (1) Psychosis Problem details: Post-operative delirium suspected Current visit: Yes Status : Acute (2) 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, moderate to severe, with behavioral disturbance Current visit: Yes Status: Acute (3) Primary progressive aphasia Current visit: Yes Status: Acute (4) BPH (benign prostatic hyperplasia) Current visit: Yes Status: Acute (5) CAD (coronary artery disease) Current visit: Yes Status: Acute (6) CHF (congestive heart failure) Current visit: Yes Status: Acute (7) CKD (chronic kidney disease), stage III Current visit: Yes Status: Acute (8) DMII (diabetes mellitus, type 2) Current visit: Yes Status: Acute (9) Glaucoma Current visit: Yes Status: Acute (10) HTN (hypertension) Current visit: Yes Status: Acute (11) History of prostate cancer Current visit: Yes Status: Acute (12) History of retinal vein occlusion Current visit: Yes Status: Acute (13) History of TIA (transient ischemic attack) Current visit: Yes Status: Acute (14) History of urinary incontinence Current visit: Yes Status: Acute (15) Osteoarthritis Current visit: Yes Status: Acute Depakote is approaching steady-state; aggression has been decreasing though delirium symptoms continue. Will decrease Zyprexa to 2.5mg PO scheduled at HS ( has PRN available) in case this is worsening restlessness. Will decrease PRN Ativan dose to 0.5mg PO q 6 hrs. Would like to minimize PRN use. Hospital Course Summary Disclaimer: The visit summary below is not to be considered part of the above Progress Note. Hospital Course: Plan - 10/08/17 (Admission) Agree with [facility] for further psychiatric evaluation treatment. Provide safe and supportive environment. Hospitalist service consulted for medical management. Labs obtained in ED prior to admission and were relatively unremarkable. Will continue to monitor periodically throughout admission. TSH 1.80. Recent right inguinal hernia repair on 09/10/[address] Martienz with subsequent formation of a hematoma which has been managed as an outpatient. Will consult Dr. Martinez for continued management of hematoma. Anemia noted on admission - hgb 12.6. Will assess B12 level. Suspect anemia is secondary to recent surgery. Will continue to monitor closely. Continue home medications including Eliquis for chronic anticoagulation given prior TIA. Monitor blood pressure closely as well as daily weight to monitor for fluid overload. Will check blood sugars daily in AM. Upon discharge, patient's care will be returned to his PCP, Dr. Elise. 10/12/17 Psych: Zyprexa started over the weekend and titrated to 5mg PO q HS. Limited effectiveness. Will now start Depakote sprinkles 250mg PO with dinner and likely increase in the morning, will plan to taper Zyprexa once agitation has decreased. Informed consent given by patient's /DPOA. Monitor mood, behavior and response to treatment. 10/13/17 Psych: Patient did not receive Depakote last night. Will give Depakote sprinkles 250mg PO BID starting this AM and begin to taper Zyprexa once agitation decreases. Plan - 10/14/17 Currently patient appears to be having visual hallucinations, picking at items not seen on the floor. Requiring 4:1 care at times and clinical concern for safety. Would recommend sitter with patient at all times due to poor safety awareness and risk for falls. Continue psychiatric care per Dr. Macias and team. Provide safe and supportive environment. Patient noted to have clinical hyperkalemia on 10/11/17 with potassium at 6.2. Specimen was hemolyzed. Patient given 1L NS IV. Repeat labs were improved and unremarkable with potassium at 4.0. Will continue to monitor periodically throughout admission. Will reassess CBC and BMP today to monitor blood counts, electrolytes and renal function. Continue to encourage oral intake to prevent dehydration. Will need nursing assistance. 10/14/17 Psych: Continue current care while Depakote is approaching steady- state. Aggression is decreasing overall. Discussed care with patient's . 10/15/17 Psych: Depakote is approaching steady-state; aggression has been decreasing though delirium symptoms continue. Will decrease Zyprexa to 2.5mg PO scheduled at HS (has PRN available) in case this is worsening restlessness. Will decrease PRN Ativan dose to 0.5mg PO q 6 hrs. Would like to minimize PRN use.
[2017-10-15] MEDS: OLANZapine ODT 5 MG TABLET PO SCH (20:07)
[2017-10-16] MEDS: METFORMIN 500 MG TABLET PO SCH ×3 (09:12→17:49)
[2017-10-16] MEDS: ASPIRIN *EC* 81 MG TABLET PO SCH ×2 (09:12→11:36)
[2017-10-16] MEDS: APIXABAN 5 MG TABLET PO SCH ×3 (09:12→19:59)
[2017-10-16] MEDS: FENOFIBRATE 160 MG TABLET PO SCH ×2 (09:12→11:35)
[2017-10-16] MEDS: DORZOLAMIDE 2% EYE DROPS 10ml EACH EYE SCH ×3 (09:14→22:07)
[2017-10-16] MEDS: DIVALPROEX SPRINKLE 125 MG CAPSULE PO SCH ×3 (09:14→19:59)
[2017-10-16] MEDS: NIACIN 750 MG PO SCH ×3 (09:15→21:09)
[2017-10-16] MEDS: ESCITALOPRAM 20 MG TABLET PO SCH ×2 (09:15→11:37)
--- NOTE | 2017-10-16 12:10 | Progress Note ---
- Date 10/16/17 Subjective: Chris is seen while sitting with his in the day room. Nursing reports that he continues to have some aggression with cares as well as restlessness and visual hallucinations noted as he picks at things in the air and on the floor. No other complaints or concerns. Recent labs revealed new, mild anemia with hemoglobin at 13.1. Appetite is poor with poor oral intake but bowels are moving. Objective Vital signs: Temperature 97.6 F 10/16/17 08:00 Pulse Rate 72 10/16/17 08:00 Respiratory Rate 16 10/16/17 08:00 Blood Pressure 132/72 10/16/17 08:00 Pulse Oximetry 97 10/16/17 08:00 Height/Weight/BMI: Height 5 ft 10 in Weight 165 lb 5.547 oz Body Mass Index 25.2 Comments: sitting with in day room - Constitutional Present: no acute distress, cooperative - Routine HEENT Exam Head: Present: normocephalic, atraumatic Eye: Present: PERRL. Absent: conjunctival icterus ENT: Present: mucous membranes dry - Routine Respiratory Exam Present: CTA bilaterally. Absent: rales, rhonchi, stridor, wheezes, crackles - Routine Cardiovascular Exam Present: RRR, S1, S2 - Routine Abdominal Exam Present: soft, normoactive bowel sounds, non distended, non tender - Routine Extremities Exam Present: no edema, non tender, full ROM, pulses intact - Routine Back/Spine/Pelvis Exam Back/Spine: Present: full ROM. Absent: vertebral tenderness - Routine Musculoskeletal Exam Musculoskeletal: Present: moving extremities well - Routine Skin Exam Present: dry, warm. Absent: jaundice Comments: afebrile - Routine Neurological Exam Present: alert (orienated to self only), moving all extremities. Absent: facial asymmetry - Routine Lymphatic Exam Lymphatic: Absent: lymphedema - Routine Psychiatric Exam Present: cooperative Results - Labs CBC & Chem 7: 10/14/17 09:43 10/14/17 09:43 Assessment and Plan (1) Alzheimer's dementia Current visit: Yes Status: Chronic (2) Psychosis Problem details: Post-operative delirium suspected Current visit: Yes Status : Acute Assessment and Plan: Assessment Psychosis, acute. Alzheimer's dementia. Anemia, unspecified. Anxiety. BPH. CAD. CHF. Chronic anticoagulation on Eliquis. Chronic kidney disease, stage III. Depression. Diabetes Type 2. Glaucoma. Hypertension. History of prostate cancer. History of retinal vein occlusion, 2012. History of TIA. History of urinary incontinence. Osteoarthritis. Plan - 10/16/17 Patient continues to have aggression with cares as well as restlessness and visual hallucinations. Continue psychiatric care per Dr. Macias and team. Continue to provide safe and supportive environment. Repeat labs on 10/14 revealed new mild anemia (Hgb 13.1). Will continue to monitor periodically throughout admission. No overt signs of bleeding. Patient continues to have poor oral intake with slight increase in SCr on 10/14. Encourage oral intake and will consult dietary for additional recommendations. Dr. Martinez monitoring patient's hematoma from recent inguinal hernia repair. Patient was placed on prophylaxis Keflex QID on 10/08/17 due to concerns about possible development of cellulitis. Patient has completed 7 days of treatment. Discussed with Dr. Martinez and will discontinue Keflex today. Continue to monitor groin for signs of infection. Patient remains afebrile. Nursing expressed concern about patient's home niacin due to the large pill size and inability to crush pill. Will hold niacin due to aspiration risk. Recheck labs on 10/19/17 to monitor blood counts, electrolytes and renal function. Resuscitation Status: Do Not Resuscitate - Time spent with patient Time with patient PN: 35 minutes - Physician Narrative Physician: Bessie Bay MD Narrative: Date: 10/16/17 Time: 1207 Hospital Course Summary Disclaimer: The visit summary below is not to be considered part of the above Progress Note. Hospital Course: Plan - 10/08/17 (Admission) Agree with admission to [facility] for further psychiatric evaluation treatment. Provide safe and supportive environment. Hospitalist service consulted for medical management. Labs obtained in ED prior to admission and were relatively unremarkable. Will continue to monitor periodically throughout admission. TSH 1.80. Recent right inguinal hernia repair on 09/10/[address] Martinez with subsequent formation of a hematoma which has been managed as an outpatient. Will consult Dr. Martinez for continued management of hematoma. Anemia noted on admission - hgb 12.6. Will assess B12 level. Suspect anemia is secondary to recent surgery. Will continue to monitor closely. Continue home medications including Eliquis for chronic anticoagulation given prior TIA. Monitor blood pressure closely as well as daily weight to monitor for fluid overload. Will check blood sugars daily in AM. Upon discharge, patient's care will be returned to his PCP, Dr. Elise. 10/12/17 Psych: Zyprexa started over the weekend and titrated to 5mg PO q HS. Limited effectiveness. Will now start Depakote sprinkles 250mg PO with dinner and likely increase in the morning, will plan to taper Zyprexa once agitation has decreased. Informed consent given by patient's /DPOA. Monitor mood, behavior and response to treatment. 10/13/17 Psych: Patient did not receive Depakote last night. Will give Depakote sprinkles 250mg PO BID starting this AM and begin to taper Zyprexa once agitation decreases. Plan - 10/14/17 Currently patient appears to be having visual hallucinations, picking at items not seen on the floor. Requiring 4:1 care at times and clinical concern for safety. Would recommend sitter with patient at all times due to poor safety awareness and risk for falls. Continue psychiatric care per Dr. Macias and team. Provide safe and supportive environment. Patient noted to have clinical hyperkalemia on 10/11/17 with potassium at 6.2. Specimen was hemolyzed. Patient given 1L NS IV. Repeat labs were improved and unremarkable with potassium at 4.0. Will continue to monitor periodically throughout admission. Will reassess CBC and BMP today to monitor blood counts, electrolytes and renal function. Continue to encourage oral intake to prevent dehydration. Will need nursing assistance. 10/14/17 Psych: Continue current care while Depakote is approaching steady- state. Aggression is decreasing overall. Discussed care with patient's . 10/15/17 Psych: Depakote is approaching steady-state; aggression has been decreasing though delirium symptoms continue. Will decrease Zyprexa to 2.5mg PO scheduled at HS (has PRN available) in case this is worsening restlessness. Will decrease PRN Ativan dose to 0.5mg PO q 6 hrs. Would like to minimize PRN use. Plan - 10/16/17 Patient continues to have aggression with cares as well as restlessness and visual hallucinations. Continue psychiatric care per Dr. Macias and team. Continue to provide safe and supportive environment. Repeat labs on 10/14 revealed new mild anemia (Hgb 13.1). Will continue to monitor periodically throughout admission. No overt signs of bleeding. Patient continues to have poor oral intake with slight increase in SCr on 10/14. Encourage oral intake and will consult dietary for additional recommendations. Dr. Martinez monitoring patient's hematoma from recent inguinal hernia repair. Patient was placed on prophylaxis Keflex QID on 10/08/17 due to concerns about possible development of cellulitis. Patient has completed 7 days of treatment. Discussed with Dr. Martinez and will discontinue Keflex today. Continue to monitor groin for signs of infection. Patient remains afebrile. Nursing expressed concern about patient's home niacin due to the large pill size and inability to crush pill. Will hold niacin due to aspiration risk. Recheck labs on 10/19/17 to monitor blood counts, electrolytes and renal function.
--- NOTE | 2017-10-16 14:23 | Neuropsych Progress Note ---
[facility] Subjective Date: 10/16/17 - Sujective/Severity of Illness Medications: Acetaminophen (Tylenol) 325 - 650 mg PO Q5H PRN PRN Reason: Discomfort Last Admin: 10/14/17 10:29 Dose: 650 mg Apixaban (Eliquis) 5 mg PO BID [facility] Last Admin: 10/16/17 11:36 Dose: 5 mg Aspirin (Ecotrin) 81 mg PO DAILY [facility] Last Admin: 10/16/17 11:36 Dose: 81 mg Bisacodyl (Dulcolax) 10 mg PO DAILY PRN PRN Reason: Constipation Last Admin: 10/14/17 08:41 Dose: 10 mg Divalproex Sodium (Depakote Sprinkle) 250 mg PO BID [facility] Last Admin: 10/16/17 11:36 Dose: 250 mg Dorzolamide HCl (Trusopt) 1 drops EACH EYE BID [facility] Last Admin: 10/16/17 11:37 Dose: 1 drops Escitalopram Oxalate (Lexapro) 20 mg PO DAILY [facility] Last Admin: 10/16/17 11:37 Dose: 20 mg Fenofibrate (Lofibra) 160 mg PO WB [facility] Last Admin: 10/16/17 11:35 Dose: 160 mg Latanoprost (Xalatan) 1 drops LEFT EYE HS [facility] Last Admin: 10/15/17 20:09 Dose: 1 drops Lorazepam (Ativan Inj) 0.5 mg IM Q6H PRN PRN Reason: Extreme agitation Last Admin: 10/16/17 06:25 Dose: 0.5 mg Lorazepam (Ativan) 0.5 mg PO Q6H PRN Metformin HCl (Glucophage) 500 mg PO BIDWM [facility] Last Admin: 10/16/17 11:36 Dose: 500 mg Neomycin/Polymyxin/Bacitracin (Neosporin) 1 applic TP BID PRN Niacin (Niaspan) 1,500 mg PO DAILY [facility] Last Admin: 10/15/17 10:45 Dose: 1,500 mg Nitroglycerin (Nitrostat) 0.4 mg SL PRN PRN PRN Reason: Chest pain Olanzapine (Zyprexa Zydis) 2.5 mg PO Q6HR PRN PRN Reason: Agitation Last Admin: 10/15/17 02:54 Dose: 2.5 mg Olanzapine (Zyprexa Zydis) 2.5 mg PO HS [facility] Last Admin: 10/15/17 20:07 Dose: 2.5 mg Subjective: Patient seen and chart reviewed. Case discussed with treatment team. Patient is napping in dayroom at time of rounds; and [id number] are at bedside. Again, reviewed at length patient's diagnosis, treatment plan, prognosis and safety concerns -- that he could not safely return home with his . Nursing staff report patient aggression seems to be decreasing (better during the day but still present, especially with cares) but he continues to be restless, picking things out of air frequently and having VH. Patient has variably adherent with medications. VSS. Appetite is limited. Psychotropic PRNs required in the past 24 hours: multiple but decreasing in frequency. As sleep cycle disturbance is characteristic of delirium, will suggest that nursing staff allow patient to walk overnight rather than continuing to redirect him back to staying in bed. Start Time: 09:40 Stop Time: 10:20 Care: >50% of this visit spent in counseling/coordination care. (family meeting with , [id number]) Mental Status Exam Vitals: Last Vital Signs Temp 97.6 F 10/16/17 08:00 Pulse 72 10/16/17 08:00 Resp 16 10/16/17 08:00 BP 132/72 10/16/17 08:00 Pulse Ox 97 10/16/17 08:00 Height: 1.78 m Weight: 75 kg - Mental Status Exam Muscle Strength/Tone: Weak Dressing: Casual Grooming: Fair Attitude: Uncooperative, Combative (at times) Motor Activity: Retardation, Tremors, Restless (at tiems) Eye Contact: Poor Speech: Slowed, Other (Minimal) Volume: Soft Rhythm: Mumbled Orientation: Disoriented to time, Disoriented to place, Disoriented to situation , Oriented to person Mood: Neutral (labile affect) Rate of Thoughts: Delayed Thought Organization: Disorganized, Confused Associations: Illogical Abstract Reasoning: Impaired, concrete Thought Content: Other (Poverty of thought or out of context to situation) Perception/Psychotic: Psychotic Current Hallucinations: Visual (observed picking out of air) Language: Naming Impaired Fund of Knowledge: Poor fund of knowledge Memory: Poor-immediate, Poor-recent Suicidal Ideation: Other (Had prior to admission, no SI observed today) Homicidal Ideation: None Insight: Impaired Judgement: Impaired Impulse Control: Poor - Laboratory Result Diagrams: 10/14/17 09:43 10/14/17 09:43 Laboratory Results - last 24 hr 10/14/17 10/16/17 09:43 10:32 Glucometer 109 Vitamin B12 900 Assessment and Plan (1) Psychosis Problem details: Post-operative delirium suspected Current visit: Yes Status : Acute (2) 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, moderate to severe, with behavioral disturbance Current visit: Yes Status: Acute (3) Primary progressive aphasia Current visit: Yes Status: Acute (4) BPH (benign prostatic hyperplasia) Current visit: Yes Status: Acute (5) CAD (coronary artery disease) Current visit: Yes Status: Acute (6) CHF (congestive heart failure) Current visit: Yes Status: Acute (7) CKD (chronic kidney disease), stage III Current visit: Yes Status: Acute (8) DMII (diabetes mellitus, type 2) Current visit: Yes Status: Acute (9) Glaucoma Current visit: Yes Status: Acute (10) HTN (hypertension) Current visit: Yes Status: Acute (11) History of prostate cancer Current visit: Yes Status: Acute (12) History of retinal vein occlusion Current visit: Yes Status: Acute (13) History of TIA (transient ischemic attack) Current visit: Yes Status: Acute (14) History of urinary incontinence Current visit: Yes Status: Acute (15) Osteoarthritis Current visit: Yes Status: Acute Will order Depakote level for AM and adjust accordingly, with plan to continue to taper Zyprexa as tolerated. Hospital Course Summary Disclaimer: The visit summary below is not to be considered part of the above Progress Note. Hospital Course: Plan - 10/08/17 (Admission) Agree with admission to [facility] for further psychiatric evaluation treatment. Provide safe and supportive environment. Hospitalist service consulted for medical management. Labs obtained in ED prior to admission and were relatively unremarkable. Will continue to monitor periodically throughout admission. TSH 1.80. Recent right inguinal hernia repair on 09/10/[address] Martinez with subsequent formation of a hematoma which has been managed as an outpatient. Will consult Dr. Martinez for continued management of hematoma. Anemia noted on admission - hgb 12.6. Will assess B12 level. Suspect anemia is secondary to recent surgery. Will continue to monitor closely. Continue home medications including Eliquis for chronic anticoagulation given prior TIA. Monitor blood pressure closely as well as daily weight to monitor for fluid overload. Will check blood sugars daily in AM. Upon discharge, patient's care will be returned to his PCP, Dr. Elise. 10/12/17 Psych: Zyprexa started over the weekend and titrated to 5mg PO q HS. Limited effectiveness. Will now start Depakote sprinkles 250mg PO with dinner and likely increase in the morning, will plan to taper Zyprexa once agitation has decreased. Informed consent given by patient's /DPOA. Monitor mood, behavior and response to treatment. 10/13/17 Psych: Patient did not receive Depakote last night. Will give Depakote sprinkles 250mg PO BID starting this AM and begin to taper Zyprexa once agitation decreases. Plan - 10/14/17 Currently patient appears to be having visual hallucinations, picking at items not seen on the floor. Requiring 4:1 care at times and clinical concern for safety. Would recommend sitter with patient at all times due to poor safety awareness and risk for falls. Continue psychiatric care per Dr. Macias and team. Provide safe and supportive environment. Patient noted to have clinical hyperkalemia on 10/11/17 with potassium at 6.2. Specimen was hemolyzed. Patient given 1L NS IV. Repeat labs were improved and unremarkable with potassium at 4.0. Will continue to monitor periodically throughout admission. Will reassess CBC and BMP today to monitor blood counts, electrolytes and renal function. Continue to encourage oral intake to prevent dehydration. Will need nursing assistance. 10/14/17 Psych: Continue current care while Depakote is approaching steady- state. Aggression is decreasing overall. Discussed care with patient's . 10/15/17 Psych: Depakote is approaching steady-state; aggression has been decreasing though delirium symptoms continue. Will decrease Zyprexa to 2.5mg PO scheduled at HS (has PRN available) in case this is worsening restlessness. Will decrease PRN Ativan dose to 0.5mg PO q 6 hrs. Would like to minimize PRN use. Plan - 10/16/17 Patient continues to have aggression with cares as well as restlessness and visual hallucinations. Continue psychiatric care per Dr. Macias and team. Continue to provide safe and supportive environment. Repeat labs on 10/14 revealed new mild anemia (Hgb 13.1). Will continue to monitor periodically throughout admission. No overt signs of bleeding. Patient continues to have poor oral intake with slight increase in SCr on 10/14. Encourage oral intake and will consult dietary for additional recommendations. Dr. Martinez monitoring patient's hematoma from recent inguinal hernia repair. Patient was placed on prophylaxis Keflex QID on 10/08/17 due to concerns about possible development of cellulitis. Patient has completed 7 days of treatment. Discussed with Dr. Martinez and will discontinue Keflex today. Continue to monitor groin for signs of infection. Patient remains afebrile. Nursing expressed concern about patient's home niacin due to the large pill size and inability to crush pill. Will hold niacin due to aspiration risk. Recheck labs on 10/19/17 to monitor blood counts, electrolytes and renal function. 10/16/17 Psych: Will order Depakote level for AM and adjust accordingly, with plan to continue to taper Zyprexa as tolerated.
[2017-10-16] MEDS: OLANZapine ODT 5 MG TABLET PO SCH (19:59)
[2017-10-16] MEDS: ACETAMINOPHEN 325 MG TABLET PO PRN (20:10)
[2017-10-16] MEDS: LATANOPROST 0.005% EYE DROPS 2.5ml LEFT EYE SCH (22:08)
[2017-10-17] MEDS: DIVALPROEX SPRINKLE 125 MG CAPSULE PO SCH ×2 (11:54→20:23)
[2017-10-17] MEDS: APIXABAN 5 MG TABLET PO SCH ×2 (11:54→20:23)
[2017-10-17] MEDS: ACETAMINOPHEN 325 MG TABLET PO PRN (11:55)
[2017-10-17] MEDS: DORZOLAMIDE 2% EYE DROPS 10ml EACH EYE SCH ×3 (11:55→20:32)
[2017-10-17] MEDS: ESCITALOPRAM 20 MG TABLET PO SCH (11:55)
--- NOTE | 2017-10-17 12:06 | Neuropsych Progress Note ---
[facility] Subjective Date: 10/17/17 - Sujective/Severity of Illness Medications: Acetaminophen (Tylenol) 325 - 650 mg PO Q5H PRN PRN Reason: Discomfort Last Admin: 10/17/17 11:55 Dose: 650 mg Apixaban (Eliquis) 5 mg PO BID [facility] Last Admin: 10/17/17 11:54 Dose: 5 mg Aspirin (Ecotrin) 81 mg PO DAILY [facility] Last Admin: 10/16/17 11:36 Dose: 81 mg Bisacodyl (Dulcolax) 10 mg PO DAILY PRN PRN Reason: Constipation Last Admin: 10/14/17 08:41 Dose: 10 mg Divalproex Sodium (Depakote Sprinkle) 250 mg PO BID [facility] Last Admin: 10/17/17 11:54 Dose: 250 mg Dorzolamide HCl (Trusopt) 1 drops EACH EYE BID [facility] Last Admin: 10/17/17 11:55 Dose: 1 drops Escitalopram Oxalate (Lexapro) 20 mg PO DAILY [facility] Last Admin: 10/17/17 11:55 Dose: 20 mg Fenofibrate (Lofibra) 160 mg PO WB [facility] Last Admin: 10/16/17 11:35 Dose: 160 mg Latanoprost (Xalatan) 1 drops LEFT EYE HS [facility] Last Admin: 10/16/17 22:08 Dose: Not Given Lorazepam (Ativan Inj) 0.5 mg IM Q6H PRN PRN Reason: Extreme agitation Last Admin: 10/16/17 21:51 Dose: 0.5 mg Lorazepam (Ativan) 0.5 mg PO Q6H PRN Metformin HCl (Glucophage) 500 mg PO BIDWM [facility] Last Admin: 10/16/17 17:49 Dose: 500 mg Neomycin/Polymyxin/Bacitracin (Neosporin) 1 applic TP BID PRN Niacin (Niaspan) 1,500 mg PO DAILY [facility] Last Admin: 10/16/17 21:09 Dose: Not Given Nitroglycerin (Nitrostat) 0.4 mg SL PRN PRN PRN Reason: Chest pain Olanzapine (Zyprexa Zydis) 2.5 mg PO Q6HR PRN PRN Reason: Agitation Last Admin: 10/15/17 02:54 Dose: 2.5 mg Olanzapine (Zyprexa Zydis) 2.5 mg PO HS [facility] Last Admin: 10/16/17 19:59 Dose: 2.5 mg Subjective: Patient seen and chart reviewed. Nursing reports pt continues to have issues sleeping at night but does sleep during the day. Appetite is improving. Pt received Ativan at 2150 for agitation. On face to face the pt is resting in the day room. He is pleasant and voices no concerns. Spoke with son who states they are actively seeking [facility] placement Start Time: 10:30 Stop Time: 10:45 Mental Status Exam Vitals: Last Vital Signs Temp 97.3 F 10/17/17 02:40 Pulse 78 10/17/17 02:40 Resp 16 10/17/17 02:40 BP 138/72 10/17/17 02:40 Pulse Ox 96 10/17/17 02:40 Height: 1.78 m Weight: 75 kg - Mental Status Exam Muscle Strength/Tone: Weak Dressing: Casual Grooming: Fair Attitude: Cooperative Motor Activity: Retardation, Tremors, Restless (at tiems) Eye Contact: Poor Speech: Slowed, Other (Minimal) Volume: Soft Rhythm: Mumbled Orientation: Disoriented to time, Disoriented to place, Disoriented to situation , Oriented to person Mood: Neutral (labile affect) Rate of Thoughts: Delayed Thought Organization: Disorganized, Confused Associations: Illogical Abstract Reasoning: Impaired, concrete Thought Content: Other (Poverty of thought or out of context to situation) Perception/Psychotic: Psychotic Current Hallucinations: Visual (observed picking out of air) Language: Naming Impaired Fund of Knowledge: Poor fund of knowledge Memory: Poor-immediate, Poor-recent Suicidal Ideation: Other (Had prior to admission, no SI observed today) Homicidal Ideation: None Insight: Impaired Judgement: Impaired Impulse Control: Poor - Laboratory Result Diagrams: 10/17/17 06:51 10/17/17 06:51 Laboratory Results - last 24 hr 10/17/17 10/17/17 10/17/17 06:23 06:51 06:51 WBC 6.8 RBC 4.02 L Hgb 12.9 L Hct 38.8 L MCV 96.5 MCH 32.1 MCHC 33.2 RDW Std Deviation 44.5 Plt Count 119 L MPV 11.1 Immature Gran % (Auto) 0.1 Neut % (Auto) 68.1 H Lymph % (Auto) 18.0 L [place] % (Auto) 11.1 H Eos % (Auto) 2.3 Baso % (Auto) 0.4 Neut # (Auto) 4.7 Lymph # (Auto) 1.2 [place] # (Auto) 0.8 Eos # (Auto) 0.2 Baso # (Auto) 0.0 Abs Immat Gran (auto) 0.01 Turbidity < 20 Sodium 147 H Potassium 4.3 Chloride 111 H Carbon Dioxide 27 Anion Gap 9 BUN 25.0 H Creatinine 1.1 D GFR Calculation 65 BUN/Creatinine Ratio 23 Glucose 126 H Glucometer 109 Calculated Osmolality 288 H Calcium 10.0 Total Bilirubin 0.60 Icterus Index < 2 AST 59 ALT 45 Alkaline Phosphatase 40 Total Protein 6.5 Albumin 3.7 Globulin 2.8 Albumin/Globulin Ratio 1.3 Triglycerides 71 Cholesterol 101 L LDL Cholesterol, Calc 45.8 L VLDL Cholesterol 14.2 HDL Cholesterol 41 Cholesterol/HDL Ratio 2.5 Specimen Hemolysis < 15 Valproic Acid 29.6 L Assessment and Plan (1) Psychosis Problem details: Post-operative delirium suspected Current visit: Yes Status : Acute (2) Primary progressive aphasia Current visit: Yes Status: Acute (3) 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, moderate to severe, with behavioral disturbance Current visit: Yes Status: Acute (4) BPH (benign prostatic hyperplasia) Current visit: Yes Status: Acute (5) CAD (coronary artery disease) Current visit: Yes Status: Acute (6) CHF (congestive heart failure) Current visit: Yes Status: Acute (7) CKD (chronic kidney disease), stage III Current visit: Yes Status: Acute (8) DMII (diabetes mellitus, type 2) Current visit: Yes Status: Acute (9) Glaucoma Current visit: Yes Status: Acute (10) HTN (hypertension) Current visit: Yes Status: Acute (11) History of prostate cancer Current visit: Yes Status: Acute (12) History of retinal vein occlusion Current visit: Yes Status: Acute (13) History of TIA (transient ischemic attack) Current visit: Yes Status: Acute (14) History of urinary incontinence Current visit: Yes Status: Acute (15) Osteoarthritis Current visit: Yes Status: Acute Hospital Course Summary Disclaimer: The visit summary below is not to be considered part of the above Progress Note. Hospital Course: Plan - 10/08/17 (Admission) Agree with admission to [facility] for further psychiatric evaluation treatment. Provide safe and supportive environment. Hospitalist service consulted for medical management. Labs obtained in ED prior to admission and were relatively unremarkable. Will continue to monitor periodically throughout admission. TSH 1.80. Recent right inguinal hernia repair on 09/10/[address] Martinez with subsequent formation of a hematoma which has been managed as an outpatient. Will consult Dr. Martinez for continued management of hematoma. Anemia noted on admission - hgb 12.6. Will assess B12 level. Suspect anemia is secondary to recent surgery. Will continue to monitor closely. Continue home medications including Eliquis for chronic anticoagulation given prior TIA. Monitor blood pressure closely as well as daily weight to monitor for fluid overload. Will check blood sugars daily in AM. Upon discharge, patient's care will be returned to his PCP, Dr. Elise. 10/12/17 Psych: Zyprexa started over the weekend and titrated to 5mg PO q HS. Limited effectiveness. Will now start Depakote sprinkles 250mg PO with dinner and likely increase in the morning, will plan to taper Zyprexa once agitation has decreased. Informed consent given by patient's /DPOA. Monitor mood, behavior and response to treatment. 10/13/17 Psych: Patient did not receive Depakote last night. Will give Depakote sprinkles 250mg PO BID starting this AM and begin to taper Zyprexa once agitation decreases. Plan - 10/14/17 Currently patient appears to be having visual hallucinations, picking at items not seen on the floor. Requiring 4:1 care at times and clinical concern for safety. Would recommend sitter with patient at all times due to poor safety awareness and risk for falls. Continue psychiatric care per Dr. Macias and team. Provide safe and supportive environment. Patient noted to have clinical hyperkalemia on 10/11/17 with potassium at 6.2. Specimen was hemolyzed. Patient given 1L NS IV. Repeat labs were improved and unremarkable with potassium at 4.0. Will continue to monitor periodically throughout admission. Will reassess CBC and BMP today to monitor blood counts, electrolytes and renal function. Continue to encourage oral intake to prevent dehydration. Will need nursing assistance. 10/14/17 Psych: Continue current care while Depakote is approaching steady- state. Aggression is decreasing overall. Discussed care with patient's . 10/15/17 Psych: Depakote is approaching steady-state; aggression has been decreasing though delirium symptoms continue. Will decrease Zyprexa to 2.5mg PO scheduled at HS (has PRN available) in case this is worsening restlessness. Will decrease PRN Ativan dose to 0.5mg PO q 6 hrs. Would like to minimize PRN use. Plan - 10/16/17 Patient continues to have aggression with cares as well as restlessness and visual hallucinations. Continue psychiatric care per Dr. Macias and team. Continue to provide safe and supportive environment. Repeat labs on 10/14 revealed new mild anemia (Hgb 13.1). Will continue to monitor periodically throughout admission. No overt signs of bleeding. Patient continues to have poor oral intake with slight increase in SCr on 10/14. Encourage oral intake and will consult dietary for additional recommendations. Dr. Martinez monitoring patient's hematoma from recent inguinal hernia repair. Patient was placed on prophylaxis Keflex QID on 10/08/17 due to concerns about possible development of cellulitis. Patient has completed 7 days of treatment. Discussed with Dr. Martinez and will discontinue Keflex today. Continue to monitor groin for signs of infection. Patient remains afebrile. Nursing expressed concern about patient's home niacin due to the large pill size and inability to crush pill. Will hold niacin due to aspiration risk. Recheck labs on 10/19/17 to monitor blood counts, electrolytes and renal function. 10/16/17 Psych: Will order Depakote level for AM and adjust accordingly, with plan to continue to taper Zyprexa as tolerated. 10/17/17 Pt continues to have behaviors at times but they are improving. Continue current care
[2017-10-17] MEDS: LORazepam INTENSOL 1mg/0.5ml ORAL LIQUID PO PRN ×2 (14:35→21:01)
[2017-10-17] MEDS: METFORMIN 500 MG TABLET PO SCH ×2 (15:05→17:56)
[2017-10-17] MEDS: ASPIRIN *EC* 81 MG TABLET PO SCH (15:05)
[2017-10-17] MEDS: FENOFIBRATE 160 MG TABLET PO SCH (15:05)
[2017-10-17] MEDS: LATANOPROST 0.005% EYE DROPS 2.5ml LEFT EYE SCH ×2 (20:23→20:32)
[2017-10-17] MEDS: OLANZapine ODT 5 MG TABLET PO SCH (20:24)
[2017-10-17] MEDS: OLANZapine ODT 5 MG TABLET PO PRN (23:10)
[2017-10-18] MEDS: APIXABAN 5 MG TABLET PO SCH ×3 (10:43→20:22)
[2017-10-18] MEDS: METFORMIN 500 MG TABLET PO SCH ×3 (10:43→18:24)
[2017-10-18] MEDS: ASPIRIN *EC* 81 MG TABLET PO SCH ×2 (10:43→12:44)
[2017-10-18] MEDS: DIVALPROEX SPRINKLE 125 MG CAPSULE PO SCH ×3 (10:43→20:22)
[2017-10-18] MEDS: FENOFIBRATE 160 MG TABLET PO SCH ×2 (10:43→12:43)
[2017-10-18] MEDS: ESCITALOPRAM 20 MG TABLET PO SCH ×2 (10:43→12:44)
[2017-10-18] MEDS: DORZOLAMIDE 2% EYE DROPS 10ml EACH EYE SCH ×2 (10:44→20:28)
--- NOTE | 2017-10-18 10:51 | Neuropsych Progress Note ---
[facility] Subjective Date: 10/18/17 - Sujective/Severity of Illness Medications: Acetaminophen (Tylenol) 325 - 650 mg PO Q5H PRN PRN Reason: Discomfort Last Admin: 10/17/17 11:55 Dose: 650 mg Apixaban (Eliquis) 5 mg PO BID [facility] Last Admin: 10/18/17 10:43 Dose: 5 mg Aspirin (Ecotrin) 81 mg PO DAILY [facility] Last Admin: 10/18/17 10:43 Dose: 81 mg Bisacodyl (Dulcolax) 10 mg PO DAILY PRN PRN Reason: Constipation Last Admin: 10/14/17 08:41 Dose: 10 mg Divalproex Sodium (Depakote Sprinkle) 250 mg PO BID [facility] Last Admin: 10/18/17 10:43 Dose: 250 mg Dorzolamide HCl (Trusopt) 1 drops EACH EYE BID [facility] Last Admin: 10/18/17 10:44 Dose: 1 drops Escitalopram Oxalate (Lexapro) 20 mg PO DAILY [facility] Last Admin: 10/18/17 10:43 Dose: 20 mg Fenofibrate (Lofibra) 160 mg PO WB [facility] Last Admin: 10/18/17 10:43 Dose: 160 mg Latanoprost (Xalatan) 1 drops LEFT EYE HS [facility] Last Admin: 10/17/17 20:32 Dose: Not Given Lorazepam (Ativan Inj) 0.5 mg IM Q6H PRN PRN Reason: Extreme agitation Last Admin: 10/18/17 03:38 Dose: 0.5 mg Lorazepam (Ativan) 0.5 mg PO Q6H PRN Lorazepam (Ativan Intensol) 0.5 mg PO Q6H PRN Last Admin: 10/17/17 21:01 Dose: 0.5 mg Metformin HCl (Glucophage) 500 mg PO BIDWM [facility] Last Admin: 10/18/17 10:43 Dose: 500 mg Neomycin/Polymyxin/Bacitracin (Neosporin) 1 applic TP BID PRN Niacin (Niaspan) 1,500 mg PO DAILY [facility] Last Admin: 10/16/17 21:09 Dose: Not Given Nitroglycerin (Nitrostat) 0.4 mg SL PRN PRN PRN Reason: Chest pain Olanzapine (Zyprexa Zydis) 2.5 mg PO Q6HR PRN PRN Reason: Agitation Last Admin: 10/17/17 23:10 Dose: 2.5 mg Olanzapine (Zyprexa Zydis) 2.5 mg PO HS [facility] Last Admin: 10/17/17 20:24 Dose: 2.5 mg Subjective: Patient seen and chart reviewed. Nursing reports pt continues to have issues sleeping at night and required Ativan at 0338 for agitation when pt was swinging and kicking at staff. On face to face the pt is resting quietly in bed. He is pleasant but confused. Tolerating meds. Denies pain Start Time: 10:30 Stop Time: 10:45 Mental Status Exam Vitals: Last Vital Signs Temp 98.6 F 10/17/17 20:21 Pulse 86 10/17/17 20:21 Resp 16 10/17/17 20:21 BP 141/67 H 10/17/17 20:21 Pulse Ox 97 10/17/17 20:21 Height: 1.78 m Weight: 75 kg - Mental Status Exam Muscle Strength/Tone: Weak Dressing: Casual Grooming: Fair Attitude: Cooperative Motor Activity: Retardation, Tremors, Restless (at tiems) Eye Contact: Poor Speech: Slowed, Other (Minimal) Volume: Soft Rhythm: Mumbled Orientation: Disoriented to time, Disoriented to place, Disoriented to situation , Oriented to person Mood: Neutral (labile affect) Rate of Thoughts: Delayed Thought Organization: Disorganized, Confused Associations: Illogical Abstract Reasoning: Impaired, concrete Thought Content: Other (Poverty of thought or out of context to situation) Perception/Psychotic: Psychotic Current Hallucinations: Visual (observed picking out of air) Language: Naming Impaired Fund of Knowledge: Poor fund of knowledge Memory: Poor-immediate, Poor-recent Suicidal Ideation: Other (Had prior to admission, no SI observed today) Homicidal Ideation: None Insight: Impaired Judgement: Impaired Impulse Control: Poor - Laboratory Result Diagrams: 10/17/17 06:51 10/17/17 06:51 Assessment and Plan (1) Psychosis Problem details: Post-operative delirium suspected Current visit: Yes Status : Acute (2) Primary progressive aphasia Current visit: Yes Status: Acute (3) 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, moderate to severe, with behavioral disturbance Current visit: Yes Status: Acute (4) BPH (benign prostatic hyperplasia) Current visit: Yes Status: Acute (5) CAD (coronary artery disease) Current visit: Yes Status: Acute (6) CHF (congestive heart failure) Current visit: Yes Status: Acute (7) CKD (chronic kidney disease), stage III Current visit: Yes Status: Acute (8) DMII (diabetes mellitus, type 2) Current visit: Yes Status: Acute (9) Glaucoma Current visit: Yes Status: Acute (10) HTN (hypertension) Current visit: Yes Status: Acute (11) History of prostate cancer Current visit: Yes Status: Acute (12) History of retinal vein occlusion Current visit: Yes Status: Acute (13) History of TIA (transient ischemic attack) Current visit: Yes Status: Acute (14) History of urinary incontinence Current visit: Yes Status: Acute (15) Osteoarthritis Current visit: Yes Status: Acute Hospital Course Summary Disclaimer: The visit summary below is not to be considered part of the above Progress Note. Hospital Course: Plan - 10/08/17 (Admission) Agree with admission to [facility] for further psychiatric evaluation treatment. Provide safe and supportive environment. Hospitalist service consulted for medical management. Labs obtained in ED prior to admission and were relatively unremarkable. Will continue to monitor periodically throughout admission. TSH 1.80. Recent right inguinal hernia repair on 09/10/[address] Martinez with subsequent formation of a hematoma which has been managed as an outpatient. Will consult Dr. Martinez for continued management of hematoma. Anemia noted on admission - hgb 12.6. Will assess B12 level. Suspect anemia is secondary to recent surgery. Will continue to monitor closely. Continue home medications including Eliquis for chronic anticoagulation given prior TIA. Monitor blood pressure closely as well as daily weight to monitor for fluid overload. Will check blood sugars daily in AM. Upon discharge, patient's care will be returned to his PCP, Dr. Elise. 10/12/17 Psych: Zyprexa started over the weekend and titrated to 5mg PO q HS. Limited effectiveness. Will now start Depakote sprinkles 250mg PO with dinner and likely increase in the morning, will plan to taper Zyprexa once agitation has decreased. Informed consent given by patient's /DPOA. Monitor mood, behavior and response to treatment. 10/13/17 Psych: Patient did not receive Depakote last night. Will give Depakote sprinkles 250mg PO BID starting this AM and begin to taper Zyprexa once agitation decreases. Plan - 10/14/17 Currently patient appears to be having visual hallucinations, picking at items not seen on the floor. Requiring 4:1 care at times and clinical concern for safety. Would recommend sitter with patient at all times due to poor safety awareness and risk for falls. Continue psychiatric care per Dr. Macias and team. Provide safe and supportive environment. Patient noted to have clinical hyperkalemia on 10/11/17 with potassium at 6.2. Specimen was hemolyzed. Patient given 1L NS IV. Repeat labs were improved and unremarkable with potassium at 4.0. Will continue to monitor periodically throughout admission. Will reassess CBC and BMP today to monitor blood counts, electrolytes and renal function. Continue to encourage oral intake to prevent dehydration. Will need nursing assistance. 10/14/17 Psych: Continue current care while Depakote is approaching steady- state. Aggression is decreasing overall. Discussed care with patient's . 10/15/17 Psych: Depakote is approaching steady-state; aggression has been decreasing though delirium symptoms continue. Will decrease Zyprexa to 2.5mg PO scheduled at HS (has PRN available) in case this is worsening restlessness. Will decrease PRN Ativan dose to 0.5mg PO q 6 hrs. Would like to minimize PRN use. Plan - 10/16/17 Patient continues to have aggression with cares as well as restlessness and visual hallucinations. Continue psychiatric care per Dr. Macias and team. Continue to provide safe and supportive environment. Repeat labs on 10/14 revealed new mild anemia (Hgb 13.1). Will continue to monitor periodically throughout admission. No overt signs of bleeding. Patient continues to have poor oral intake with slight increase in SCr on 10/14. Encourage oral intake and will consult dietary for additional recommendations. Dr. Martinez monitoring patient's hematoma from recent inguinal hernia repair. Patient was placed on prophylaxis Keflex QID on 10/08/17 due to concerns about possible development of cellulitis. Patient has completed 7 days of treatment. Discussed with Dr. Martinez and will discontinue Keflex today. Continue to monitor groin for signs of infection. Patient remains afebrile. Nursing expressed concern about patient's home niacin due to the large pill size and inability to crush pill. Will hold niacin due to aspiration risk. Recheck labs on 10/19/17 to monitor blood counts, electrolytes and renal function. 10/16/17 Psych: Will order Depakote level for AM and adjust accordingly, with plan to continue to taper Zyprexa as tolerated. 10/17/17 Pt continues to have behaviors at times but they are improving. Continue current care 10/18/2017 Continues to have poor sleep at times and is agitated with cares. Depakote level 29. Will increase to 500mg PO BID
--- NOTE | 2017-10-18 16:31 | Progress Note ---
- Date 10/18/17 Subjective: Saurabh is seen in follow up. He is sleeping in the TV area. Does not wake up during my visit. Nurses notes reflect some ongoing intermittent behaviors, as well as rigidity with standing require 3 person assist. Chart is reviewed during my visit today. Objective Vital signs: Temperature 96.6 F L 10/18/17 10:00 Pulse Rate 69 10/18/17 10:00 Respiratory Rate 22 10/18/17 10:00 Blood Pressure 135/69 10/18/17 10:00 Pulse Oximetry 99 10/18/17 10:00 Height/Weight/BMI: Height 1.78 m Weight 75 kg Body Mass Index 25.2 - Constitutional Present: no acute distress, thin, disheveled Comments: Sleeping during my visit. - Routine HEENT Exam Head: Present: normocephalic, atraumatic - Routine Respiratory Exam Present: CTA bilaterally. Absent: rhonchi, wheezes, crackles - Routine Cardiovascular Exam Present: RRR, S1, S2, no murmur - Routine Abdominal Exam Present: soft, normoactive bowel sounds, non distended, non tender - Routine Extremities Exam Present: no edema - Routine Skin Exam Present: intact, dry, warm - Routine Psychiatric Exam Present: unable to assess Results - Labs CBC & Chem 7: 10/17/17 06:51 10/17/17 06:51 Assessment and Plan (1) Alzheimer's dementia Current visit: Yes Status: Chronic (2) Psychosis Problem details: Post-operative delirium suspected Current visit: Yes Status : Acute Assessment and Plan: Assessment Psychosis, acute. Alzheimer's dementia. Anemia, unspecified. Anxiety. BPH. CAD. CHF. Chronic anticoagulation on Eliquis. Chronic kidney disease, stage III. Depression. Diabetes Type 2. Glaucoma. Hypertension. History of prostate cancer. History of retinal vein occlusion, 2012. History of TIA. History of urinary incontinence. Osteoarthritis. Plan - 10/18/17 Still variable moods, irritability, acting out towards staff. Continue support, medication adjustments continue. 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 Starting to look a bit dry on labs- repeat labs in AM. Holding Niacin- would recommend we DC that. His lipid panel is not terribly abnormal. May need to consider discussion re: stopping Eliquis due to bleeding risk with dementia, risk of falls. Remains on Metformin- monitor labs and CKD closely. Will continue to follow. DVT Prophylaxis: Eliquis Resuscitation Status: Do Not Resuscitate - Physician Narrative Narrative: Date: 10/18/17 Time: 1627 Hospital Course Summary Disclaimer: The visit summary below is not to be considered part of the above Progress Note. Hospital Course: Plan - 10/08/17 (Admission) Agree with admission to [facility] for further psychiatric evaluation treatment. Provide safe and supportive environment. Hospitalist service consulted for medical management. Labs obtained in ED prior to admission and were relatively unremarkable. Will continue to monitor periodically throughout admission. TSH 1.80. Recent right inguinal hernia repair on 09/10/[address] Martinez with subsequent formation of a hematoma which has been managed as an outpatient. Will consult Dr. Martinez for continued management of hematoma. Anemia noted on admission - hgb 12.6. Will assess B12 level. Suspect anemia is secondary to recent surgery. Will continue to monitor closely. Continue home medications including Eliquis for chronic anticoagulation given prior TIA. Monitor blood pressure closely as well as daily weight to monitor for fluid overload. Will check blood sugars daily in AM. Upon discharge, patient's care will be returned to his PCP, Dr. Elise. 10/12/17 Psych: Zyprexa started over the weekend and titrated to 5mg PO q HS. Limited effectiveness. Will now start Depakote sprinkles 250mg PO with dinner and likely increase in the morning, will plan to taper Zyprexa once agitation has decreased. Informed consent given by patient's /DPOA. Monitor mood, behavior and response to treatment. 10/13/17 Psych: Patient did not receive Depakote last night. Will give Depakote sprinkles 250mg PO BID starting this AM and begin to taper Zyprexa once agitation decreases. Plan - 10/14/17 Currently patient appears to be having visual hallucinations, picking at items not seen on the floor. Requiring 4:1 care at times and clinical concern for safety. Would recommend sitter with patient at all times due to poor safety awareness and risk for falls. Continue psychiatric care per Dr. Macias and team. Provide safe and supportive environment. Patient noted to have clinical hyperkalemia on 10/11/17 with potassium at 6.2. Specimen was hemolyzed. Patient given 1L NS IV. Repeat labs were improved and unremarkable with potassium at 4.0. Will continue to monitor periodically throughout admission. Will reassess CBC and BMP today to monitor blood counts, electrolytes and renal function. Continue to encourage oral intake to prevent dehydration. Will need nursing assistance. 10/14/17 Psych: Continue current care while Depakote is approaching steady- state. Aggression is decreasing overall. Discussed care with patient's . 10/15/17 Psych: Depakote is approaching steady-state; aggression has been decreasing though delirium symptoms continue. Will decrease Zyprexa to 2.5mg PO scheduled at HS (has PRN available) in case this is worsening restlessness. Will decrease PRN Ativan dose to 0.5mg PO q 6 hrs. Would like to minimize PRN use. Plan - 10/16/17 Patient continues to have aggression with cares as well as restlessness and visual hallucinations. Continue psychiatric care per Dr. Macias and team. Continue to provide safe and supportive environment. Repeat labs on 10/14 revealed new mild anemia (Hgb 13.1). Will continue to monitor periodically throughout admission. No overt signs of bleeding. Patient continues to have poor oral intake with slight increase in SCr on 10/14. Encourage oral intake and will consult dietary for additional recommendations. Dr. Martinez monitoring patient's hematoma from recent inguinal hernia repair. Patient was placed on prophylaxis Keflex QID on 10/08/17 due to concerns about possible development of cellulitis. Patient has completed 7 days of treatment. Discussed with Dr. Martinez and will discontinue Keflex today. Continue to monitor groin for signs of infection. Patient remains afebrile. Nursing expressed concern about patient's home niacin due to the large pill size and inability to crush pill. Will hold niacin due to aspiration risk. Recheck labs on 10/19/17 to monitor blood counts, electrolytes and renal function. 10/16/17 Psych: Will order Depakote level for AM and adjust accordingly, with plan to continue to taper Zyprexa as tolerated. 10/17/17 Pt continues to have behaviors at times but they are improving. Continue current care 10/18/2017 Continues to have poor sleep at times and is agitated with cares. Depakote level 29. Will increase to 500mg PO BID Plan - 10/18/17 Still variable moods, irritability, acting out towards staff. Continue support, medication adjustments continue. 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 Starting to look a bit dry on labs- repeat labs in AM. Holding Niacin- would recommend we DC that. His lipid panel is not terribly abnormal. May need to consider discussion re: stopping Eliquis due to bleeding risk with dementia, risk of falls. Remains on Metformin- monitor labs and CKD closely. Will continue to follow.
[2017-10-18] MEDS: OLANZapine ODT 5 MG TABLET PO SCH (20:23)
[2017-10-18] MEDS: LATANOPROST 0.005% EYE DROPS 2.5ml LEFT EYE SCH (20:28)
[2017-10-19] MEDS: FENOFIBRATE 160 MG TABLET PO SCH (08:47)
[2017-10-19] MEDS: METFORMIN 500 MG TABLET PO SCH ×2 (08:47→16:39)
[2017-10-19] MEDS: APIXABAN 5 MG TABLET PO SCH ×2 (08:48→20:04)
[2017-10-19] MEDS: DIVALPROEX SPRINKLE 125 MG CAPSULE PO SCH ×2 (08:48→20:04)
[2017-10-19] MEDS: ASPIRIN *EC* 81 MG TABLET PO SCH (08:48)
[2017-10-19] MEDS: DORZOLAMIDE 2% EYE DROPS 10ml EACH EYE SCH ×2 (08:49→20:05)
[2017-10-19] MEDS: ESCITALOPRAM 20 MG TABLET PO SCH (08:49)
[2017-10-19] MEDS ORDERED: HYDROCODONE/APAP 5mg/325mg TABLET PO PRN (13:55)
--- NOTE | 2017-10-19 13:55 | Progress Note ---
Progress Note: Nurse reports patient is grimacing in pain. Patient is unable to verbalize. Nurse is unsure where the pain is. Nurse will talk with psychiatric provider as well. Order for [place].
[2017-10-19] MEDS ORDERED: ACETAMINOPHEN 650 MG/20.3 ML SOLUTION PO ONE (14:00)
[2017-10-19] MEDS: OLANZapine ODT 5 MG TABLET PO SCH (17:00)
--- NOTE | 2017-10-19 18:34 | Progress Note ---
DATE OF SERVICE 10/19/2017 FINDINGS Mr. Garcia was seen this evening on rounds. Unfortunately, his Alzheimer's disease has significantly progressed over the course of the last week. He is now nonverbal and more combative. had requested that I evaluate his inguinal incision. The patient did have a postop visit tomorrow scheduled in my office. Of course, given the circumstances he will not be present at his scheduled office visit. The patient did appear disheveled this evening. PHYSICAL EXAM VITAL SIGNS: Temperature 98.4, pulse 73, respirations 18, blood pressure 121/67 , SAO2 100% on room air. CHEST: Clear to auscultation bilaterally. HEART: Regular rate and rhythm. Normal S1 and S2 without gallops, murmurs or clicks. ABDOMEN: Scaphoid in its appearance. Soft, nontender. Attention was focused to right inguinal region. Dressing was removed. At this time the incision is completely closed. There is no evidence for erythema. Hematoma has resolved. ASSESSMENT 77-year-old gentleman with progressive Alzheimer's dementia, status post right inguinal herniorrhaphy, patient doing quite well from a surgical standpoint. PLAN His prior antibiotics have been previously discontinued. At this time I do not believe he needs any type of dressing. Dressing orders will also be discontinued. The patient is stable from a surgical standpoint and does not need to follow with me unless there are concerns in the future. It is sad to see Mr. Garcia's disease process progress so rapidly. [facility]
[2017-10-19] MEDS: LATANOPROST 0.005% EYE DROPS 2.5ml LEFT EYE SCH (20:05)
[2017-10-19] MEDS: LORazepam INTENSOL 1mg/0.5ml ORAL LIQUID PO PRN (20:14)
--- NOTE | 2017-10-19 21:03 | Neuropsych Progress Note ---
[facility] Subjective Date: 10/19/17 - Sujective/Severity of Illness Medications: Acetaminophen (Tylenol) 325 - 650 mg PO Q5H PRN PRN Reason: Discomfort Last Admin: 10/17/17 11:55 Dose: 650 mg Hydrocodone Bitart/Acetaminophen ([place] 5/325) 1 tab PO Q6H PRN PRN Reason: Pain Apixaban (Eliquis) 5 mg PO BID [facility] Last Admin: 10/19/17 20:04 Dose: 5 mg Aspirin (Ecotrin) 81 mg PO DAILY [facility] Last Admin: 10/19/17 08:48 Dose: 81 mg Bisacodyl (Dulcolax) 10 mg PO DAILY PRN PRN Reason: Constipation Last Admin: 10/14/17 08:41 Dose: 10 mg Divalproex Sodium (Depakote Sprinkle) 500 mg PO BID [facility] Last Admin: 10/19/17 20:04 Dose: 500 mg Dorzolamide HCl (Trusopt) 1 drops EACH EYE BID [facility] Last Admin: 10/19/17 20:05 Dose: 1 drops Escitalopram Oxalate (Lexapro) 20 mg PO DAILY [facility] Last Admin: 10/19/17 08:49 Dose: 20 mg Fenofibrate (Lofibra) 160 mg PO WB [facility] Last Admin: 10/19/17 08:47 Dose: 160 mg Latanoprost (Xalatan) 1 drops LEFT EYE HS [facility] Last Admin: 10/19/17 20:05 Dose: 1 drops Lorazepam (Ativan Inj) 0.5 mg IM Q6H PRN PRN Reason: Extreme agitation Last Admin: 10/18/17 22:32 Dose: 0.5 mg Lorazepam (Ativan) 0.5 mg PO Q6H PRN Lorazepam (Ativan Intensol) 0.5 mg PO Q6H PRN Last Admin: 10/19/17 20:14 Dose: 0.5 mg Metformin HCl (Glucophage) 500 mg PO BIDWM [facility] Last Admin: 10/19/17 16:39 Dose: Not Given Niacin (Niaspan) 1,500 mg PO DAILY [facility] Last Admin: 10/16/17 21:09 Dose: Not Given Nitroglycerin (Nitrostat) 0.4 mg SL PRN PRN PRN Reason: Chest pain Olanzapine (Zyprexa Zydis) 2.5 mg PO Q6HR PRN PRN Reason: Agitation Last Admin: 10/17/17 23:10 Dose: 2.5 mg Olanzapine (Zyprexa Zydis) 5 mg PO 18 [facility] Last Admin: 10/19/17 17:00 Dose: 5 mg Subjective: Patient seen and chart reviewed. Case discussed with treatment team. On interview, patient doesn't answer questions but appears relaxed while he has visitors. Nursing staff report patient continues to be labile with some physical aggression with cares in the evenings/overnight. Patient has been adherent with medications. Patient did not sleep well overnight but slept ~3.5 hours during the day so this may have contributed. VSS. Appetite limited but patient likes [employer]. Psychotropic PRNs required in the past 24 hours: Ativan 0.5mg IM at 2232. Start Time: 19:00 Stop Time: 19:20 Mental Status Exam Vitals: Last Vital Signs Temp 98.4 F 10/18/17 23:20 Pulse 73 10/19/17 08:00 Resp 18 10/19/17 08:00 BP 121/67 10/19/17 08:00 Pulse Ox 100 10/19/17 08:00 Height: 1.78 m Weight: 75 kg - Mental Status Exam Muscle Strength/Tone: Weak Dressing: Casual Grooming: Fair Attitude: Cooperative Motor Activity: Retardation, Tremors, Restless (at times) Eye Contact: Poor Speech: Slowed, Other (Minimal) Volume: Soft Rhythm: Mumbled Orientation: Disoriented to time, Disoriented to place, Disoriented to situation , Oriented to person Mood: Neutral (labile affect) Rate of Thoughts: Delayed Thought Organization: Disorganized, Confused Associations: Illogical Abstract Reasoning: Impaired, concrete Thought Content: Other (Poverty of thought or out of context to situation) Perception/Psychotic: Psychotic Current Hallucinations: Visual (observed picking out of air) Language: Naming Impaired Fund of Knowledge: Poor fund of knowledge Memory: Poor-immediate, Poor-recent Suicidal Ideation: Other (Had prior to admission, no SI observed today) Homicidal Ideation: None Insight: Impaired Judgement: Impaired Impulse Control: Poor - Laboratory Result Diagrams: 10/19/17 07:42 10/19/17 07:42 Laboratory Results - last 24 hr 10/19/17 10/19/17 10/19/17 05:20 07:42 07:42 WBC 6.5 RBC 4.39 L Hgb 13.9 Hct 42.4 MCV 96.6 MCH 31.7 MCHC 32.8 RDW Std Deviation 44.4 Plt Count 142 MPV 10.4 Immature Gran % (Auto) 0.3 Neut % (Auto) 62.6 Lymph % (Auto) 23.2 [place] % (Auto) 9.9 H Eos % (Auto) 3.5 Baso % (Auto) 0.5 Neut # (Auto) 4.1 Lymph # (Auto) 1.5 [place] # (Auto) 0.7 Eos # (Auto) 0.2 Baso # (Auto) 0.0 Abs Immat Gran (auto) 0.02 Turbidity < 20 Sodium 148 H Potassium 4.4 Chloride 110 H Carbon Dioxide 28 Anion Gap 10 BUN 22.0 H Creatinine 1.0 GFR Calculation 72 BUN/Creatinine Ratio 22 Glucose 106 Glucometer 87 Calculated Osmolality 287 H Calcium 10.4 H Icterus Index < 2 Specimen Hemolysis < 15 Assessment and Plan (1) Psychosis Problem details: Post-operative delirium suspected Current visit: Yes Status : Acute (2) 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, moderate to severe, with behavioral disturbance Current visit: Yes Status: Acute (3) Primary progressive aphasia Current visit: Yes Status: Acute (4) BPH (benign prostatic hyperplasia) Current visit: Yes Status: Acute (5) CAD (coronary artery disease) Current visit: Yes Status: Acute (6) CHF (congestive heart failure) Current visit: Yes Status: Acute (7) CKD (chronic kidney disease), stage III Current visit: Yes Status: Acute (8) DMII (diabetes mellitus, type 2) Current visit: Yes Status: Acute (9) Glaucoma Current visit: Yes Status: Acute (10) HTN (hypertension) Current visit: Yes Status: Acute (11) History of prostate cancer Current visit: Yes Status: Acute (12) History of retinal vein occlusion Current visit: Yes Status: Acute (13) History of TIA (transient ischemic attack) Current visit: Yes Status: Acute (14) History of urinary incontinence Current visit: Yes Status: Acute (15) Osteoarthritis Current visit: Yes Status: Acute Depakote sprinkles increased to 500mg PO BID on 10/18. Will plan to repeat VPA level in AM on 10/22. Will increase Zyprexa back to 5mg and schedule at 1800 to minimize evening agitation. Recommend nursing staff give 0.5mg Ativan 20-30 min prior to scheduled cares. Hospital Course Summary Disclaimer: The visit summary below is not to be considered part of the above Progress Note. Hospital Course: Plan - 10/08/17 (Admission) Agree with admission to [facility] for further psychiatric evaluation treatment. Provide safe and supportive environment. Hospitalist service consulted for medical management. Labs obtained in ED prior to admission and were relatively unremarkable. Will continue to monitor periodically throughout admission. TSH 1.80. Recent right inguinal hernia repair on 09/10/[address] Martinez with subsequent formation of a hematoma which has been managed as an outpatient. Will consult Dr. Martinez for continued management of hematoma. Anemia noted on admission - hgb 12.6. Will assess B12 level. Suspect anemia is secondary to recent surgery. Will continue to monitor closely. Continue home medications including Eliquis for chronic anticoagulation given prior TIA. Monitor blood pressure closely as well as daily weight to monitor for fluid overload. Will check blood sugars daily in AM. Upon discharge, patient's care will be returned to his PCP, Dr. Elise. 10/12/17 Psych: Zyprexa started over the weekend and titrated to 5mg PO q HS. Limited effectiveness. Will now start Depakote sprinkles 250mg PO with dinner and likely increase in the morning, will plan to taper Zyprexa once agitation has decreased. Informed consent given by patient's /DPOA. Monitor mood, behavior and response to treatment. 10/13/17 Psych: Patient did not receive Depakote last night. Will give Depakote sprinkles 250mg PO BID starting this AM and begin to taper Zyprexa once agitation decreases. Plan - 10/14/17 Currently patient appears to be having visual hallucinations, picking at items not seen on the floor. Requiring 4:1 care at times and clinical concern for safety. Would recommend sitter with patient at all times due to poor safety awareness and risk for falls. Continue psychiatric care per Dr. Macias and team. Provide safe and supportive environment. Patient noted to have clinical hyperkalemia on 10/11/17 with potassium at 6.2. Specimen was hemolyzed. Patient given 1L NS IV. Repeat labs were improved and unremarkable with potassium at 4.0. Will continue to monitor periodically throughout admission. Will reassess CBC and BMP today to monitor blood counts, electrolytes and renal function. Continue to encourage oral intake to prevent dehydration. Will need nursing assistance. 10/14/17 Psych: Continue current care while Depakote is approaching steady- state. Aggression is decreasing overall. Discussed care with patient's . 10/15/17 Psych: Depakote is approaching steady-state; aggression has been decreasing though delirium symptoms continue. Will decrease Zyprexa to 2.5mg PO scheduled at HS (has PRN available) in case this is worsening restlessness. Will decrease PRN Ativan dose to 0.5mg PO q 6 hrs. Would like to minimize PRN use. Plan - 10/16/17 Patient continues to have aggression with cares as well as restlessness and visual hallucinations. Continue psychiatric care per Dr. Macias and team. Continue to provide safe and supportive environment. Repeat labs on 10/14 revealed new mild anemia (Hgb 13.1). Will continue to monitor periodically throughout admission. No overt signs of bleeding. Patient continues to have poor oral intake with slight increase in SCr on 10/14. Encourage oral intake and will consult dietary for additional recommendations. Dr. Martinez monitoring patient's hematoma from recent inguinal hernia repair. Patient was placed on prophylaxis Keflex QID on 10/08/17 due to concerns about possible development of cellulitis. Patient has completed 7 days of treatment. Discussed with Dr. Martinez and will discontinue Keflex today. Continue to monitor groin for signs of infection. Patient remains afebrile. Nursing expressed concern about patient's home niacin due to the large pill size and inability to crush pill. Will hold niacin due to aspiration risk. Recheck labs on 10/19/17 to monitor blood counts, electrolytes and renal function. 10/16/17 Psych: Will order Depakote level for AM and adjust accordingly, with plan to continue to taper Zyprexa as tolerated. 10/17/17 Pt continues to have behaviors at times but they are improving. Continue current care 10/18/2017 Continues to have poor sleep at times and is agitated with cares. Depakote level 29. Will increase to 500mg PO BID Plan - 10/18/17 Still variable moods, irritability, acting out towards staff. Continue support, medication adjustments continue. 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 Starting to look a bit dry on labs- repeat labs in AM. Holding Niacin- would recommend we DC that. His lipid panel is not terribly abnormal. May need to consider discussion re: stopping Eliquis due to bleeding risk with dementia, risk of falls. Remains on Metformin- monitor labs and CKD closely. Will continue to follow. 10/19/17 Psych: Depakote sprinkles increased to 500mg PO BID on 10/18. Will plan to repeat VPA level in AM on 10/22. Will increase Zyprexa back to 5mg and schedule at 1800 to minimize evening agitation. Recommend nursing staff give 0.5mg Ativan 20-30 min prior to scheduled cares.
[2017-10-20] MEDS: DORZOLAMIDE 2% EYE DROPS 10ml EACH EYE SCH ×3 (14:17→21:08)
[2017-10-20] MEDS: DIVALPROEX SPRINKLE 125 MG CAPSULE PO SCH ×2 (14:17→20:52)
[2017-10-20] MEDS: METFORMIN 500 MG TABLET PO SCH ×2 (14:17→17:53)
[2017-10-20] MEDS: FENOFIBRATE 160 MG TABLET PO SCH (14:17)
[2017-10-20] MEDS: ASPIRIN *EC* 81 MG TABLET PO SCH (14:17)
[2017-10-20] MEDS: ESCITALOPRAM 20 MG TABLET PO SCH (14:17)
[2017-10-20] MEDS: APIXABAN 5 MG TABLET PO SCH ×2 (14:17→20:52)
--- NOTE | 2017-10-20 14:28 | Progress Note ---
Progress Note: DC Accu-Cheks as patient is combative and resists attempts at checking blood sugar. Blood sugars have been stable. He is not on insulin.
--- NOTE | 2017-10-20 15:59 | Neuropsych Progress Note ---
[facility] Subjective Date: 10/20/17 - Sujective/Severity of Illness Medications: Acetaminophen (Tylenol) 325 - 650 mg PO Q5H PRN PRN Reason: Discomfort Last Admin: 10/17/17 11:55 Dose: 650 mg Hydrocodone Bitart/Acetaminophen ([place] 5/325) 1 tab PO Q6H PRN PRN Reason: Pain Apixaban (Eliquis) 5 mg PO BID [facility] Last Admin: 10/20/17 14:17 Dose: 5 mg Aspirin (Ecotrin) 81 mg PO DAILY [facility] Last Admin: 10/20/17 14:17 Dose: 81 mg Bisacodyl (Dulcolax) 10 mg PO DAILY PRN PRN Reason: Constipation Last Admin: 10/14/17 08:41 Dose: 10 mg Divalproex Sodium (Depakote Sprinkle) 500 mg PO BID [facility] Last Admin: 10/20/17 14:17 Dose: 500 mg Dorzolamide HCl (Trusopt) 1 drops EACH EYE BID [facility] Last Admin: 10/20/17 14:17 Dose: 1 drops Escitalopram Oxalate (Lexapro) 20 mg PO DAILY [facility] Last Admin: 10/20/17 14:17 Dose: 20 mg Fenofibrate (Lofibra) 160 mg PO WB [facility] Last Admin: 10/20/17 14:17 Dose: 160 mg Latanoprost (Xalatan) 1 drops LEFT EYE HS [facility] Last Admin: 10/19/17 20:05 Dose: 1 drops Lorazepam (Ativan Inj) 0.5 mg IM Q6H PRN PRN Reason: Extreme agitation Last Admin: 10/20/17 02:10 Dose: 0.5 mg Lorazepam (Ativan) 0.5 mg PO Q6H PRN Lorazepam (Ativan Intensol) 0.5 mg PO Q6H PRN Last Admin: 10/19/17 20:14 Dose: 0.5 mg Melatonin (Melatonin) 5 mg PO HS [facility] Metformin HCl (Glucophage) 500 mg PO BIDWM [facility] Last Admin: 10/20/17 14:17 Dose: 500 mg Niacin (Niaspan) 1,500 mg PO DAILY [facility] Last Admin: 10/16/17 21:09 Dose: Not Given Nitroglycerin (Nitrostat) 0.4 mg SL PRN PRN PRN Reason: Chest pain Olanzapine (Zyprexa Zydis) 2.5 mg PO Q6HR PRN PRN Reason: Agitation Last Admin: 10/17/17 23:10 Dose: 2.5 mg Olanzapine (Zyprexa Zydis) 5 mg PO 18 [facility] Last Admin: 10/19/17 17:00 Dose: 5 mg Subjective: Patient seen and chart reviewed. Case discussed with treatment team. Patient is sleeping at time of rounds. Nursing staff report patient continues to be labile with some physical aggression with cares in the evenings/overnight, but patient at least slept better (6.75 hours) last night. Patient has been adherent with medications. VSS. Appetite limited but patient likes [employer]akes. Psychotropic PRNs required in the past 24 hours: multiple, including Ativan 0.5mg IM at 0200 this morning for combativeness. Start Time: 10:20 Stop Time: 10:40 Mental Status Exam Vitals: Last Vital Signs Temp 96.8 F 10/20/17 08:00 Pulse 70 10/20/17 08:00 Resp 16 10/20/17 08:00 BP 140/94 H 10/20/17 08:00 Pulse Ox 94 10/20/17 08:00 Height: 1.78 m Weight: 75 kg - Mental Status Exam Muscle Strength/Tone: Weak Dressing: Casual Grooming: Fair Attitude: Cooperative Motor Activity: Retardation, Tremors, Restless (at times) Eye Contact: Poor Speech: Slowed, Other (Minimal) Volume: Soft Rhythm: Mumbled Orientation: Disoriented to time, Disoriented to place, Disoriented to situation , Oriented to person Mood: Neutral (labile affect) Rate of Thoughts: Delayed Thought Organization: Disorganized, Confused Associations: Illogical Abstract Reasoning: Impaired, concrete Thought Content: Other (Poverty of thought or out of context to situation) Perception/Psychotic: Psychotic Current Hallucinations: Visual (observed picking out of air) Language: Naming Impaired Fund of Knowledge: Poor fund of knowledge Memory: Poor-immediate, Poor-recent Suicidal Ideation: Other (Had prior to admission, no SI observed today) Homicidal Ideation: None Insight: Impaired Judgement: Impaired Impulse Control: Poor - Laboratory Result Diagrams: 10/19/17 07:42 10/19/17 07:42 Assessment and Plan (1) Psychosis Problem details: Post-operative delirium suspected Current visit: Yes Status : Acute (2) 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, moderate to severe, with behavioral disturbance Current visit: Yes Status: Acute (3) Primary progressive aphasia Current visit: Yes Status: Acute (4) BPH (benign prostatic hyperplasia) Current visit: Yes Status: Acute (5) CAD (coronary artery disease) Current visit: Yes Status: Acute (6) CHF (congestive heart failure) Current visit: Yes Status: Acute (7) CKD (chronic kidney disease), stage III Current visit: Yes Status: Acute (8) DMII (diabetes mellitus, type 2) Current visit: Yes Status: Acute (9) Glaucoma Current visit: Yes Status: Acute (10) HTN (hypertension) Current visit: Yes Status: Acute (11) History of prostate cancer Current visit: Yes Status: Acute (12) History of retinal vein occlusion Current visit: Yes Status: Acute (13) History of TIA (transient ischemic attack) Current visit: Yes Status: Acute (14) History of urinary incontinence Current visit: Yes Status: Acute (15) Osteoarthritis Current visit: Yes Status: Acute Will continue current care with plan to repeat VPA level in AM on 10/22. Will start melatonin 5mg PO q HS, which may help with sleep. Hospital Course Summary Disclaimer: The visit summary below is not to be considered part of the above Progress Note. Hospital Course: Plan - 10/08/17 (Admission) Agree with admission to [facility] for further psychiatric evaluation treatment. Provide safe and supportive environment. Hospitalist service consulted for medical management. Labs obtained in ED prior to admission and were relatively unremarkable. Will continue to monitor periodically throughout admission. TSH 1.80. Recent right inguinal hernia repair on 09/10/[address] Martinez with subsequent formation of a hematoma which has been managed as an outpatient. Will consult Dr. Martinez for continued management of hematoma. Anemia noted on admission - hgb 12.6. Will assess B12 level. Suspect anemia is secondary to recent surgery. Will continue to monitor closely. Continue home medications including Eliquis for chronic anticoagulation given prior TIA. Monitor blood pressure closely as well as daily weight to monitor for fluid overload. Will check blood sugars daily in AM. Upon discharge, patient's care will be returned to his PCP, Dr. Elise. 10/12/17 Psych: Zyprexa started over the weekend and titrated to 5mg PO q HS. Limited effectiveness. Will now start Depakote sprinkles 250mg PO with dinner and likely increase in the morning, will plan to taper Zyprexa once agitation has decreased. Informed consent given by patient's /DPOA. Monitor mood, behavior and response to treatment. 10/13/17 Psych: Patient did not receive Depakote last night. Will give Depakote sprinkles 250mg PO BID starting this AM and begin to taper Zyprexa once agitation decreases. Plan - 10/14/17 Currently patient appears to be having visual hallucinations, picking at items not seen on the floor. Requiring 4:1 care at times and clinical concern for safety. Would recommend sitter with patient at all times due to poor safety awareness and risk for falls. Continue psychiatric care per Dr. Macias and team. Provide safe and supportive environment. Patient noted to have clinical hyperkalemia on 10/11/17 with potassium at 6.2. Specimen was hemolyzed. Patient given 1L NS IV. Repeat labs were improved and unremarkable with potassium at 4.0. Will continue to monitor periodically throughout admission. Will reassess CBC and BMP today to monitor blood counts, electrolytes and renal function. Continue to encourage oral intake to prevent dehydration. Will need nursing assistance. 10/14/17 Psych: Continue current care while Depakote is approaching steady- state. Aggression is decreasing overall. Discussed care with patient's . 10/15/17 Psych: Depakote is approaching steady-state; aggression has been decreasing though delirium symptoms continue. Will decrease Zyprexa to 2.5mg PO scheduled at HS (has PRN available) in case this is worsening restlessness. Will decrease PRN Ativan dose to 0.5mg PO q 6 hrs. Would like to minimize PRN use. Plan - 10/16/17 Patient continues to have aggression with cares as well as restlessness and visual hallucinations. Continue psychiatric care per Dr. Macias and team. Continue to provide safe and supportive environment. Repeat labs on 10/14 revealed new mild anemia (Hgb 13.1). Will continue to monitor periodically throughout admission. No overt signs of bleeding. Patient continues to have poor oral intake with slight increase in SCr on 10/14. Encourage oral intake and will consult dietary for additional recommendations. Dr. Martinez monitoring patient's hematoma from recent inguinal hernia repair. Patient was placed on prophylaxis Keflex QID on 10/08/17 due to concerns about possible development of cellulitis. Patient has completed 7 days of treatment. Discussed with Dr. Martinez and will discontinue Keflex today. Continue to monitor groin for signs of infection. Patient remains afebrile. Nursing expressed concern about patient's home niacin due to the large pill size and inability to crush pill. Will hold niacin due to aspiration risk. Recheck labs on 10/19/17 to monitor blood counts, electrolytes and renal function. 10/16/17 Psych: Will order Depakote level for AM and adjust accordingly, with plan to continue to taper Zyprexa as tolerated. 10/17/17 Pt continues to have behaviors at times but they are improving. Continue current care 10/18/2017 Continues to have poor sleep at times and is agitated with cares. Depakote level 29. Will increase to 500mg PO BID Plan - 10/18/17 Still variable moods, irritability, acting out towards staff. Continue support, medication adjustments continue. 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 Starting to look a bit dry on labs- repeat labs in AM. Holding Niacin- would recommend we DC that. His lipid panel is not terribly abnormal. May need to consider discussion re: stopping Eliquis due to bleeding risk with dementia, risk of falls. Remains on Metformin- monitor labs and CKD closely. Will continue to follow. 10/19/17 Psych: Depakote sprinkles increased to 500mg PO BID on 10/18. Will plan to repeat VPA level in AM on 10/22. Will increase Zyprexa back to 5mg and schedule at 1800 to minimize evening agitation. Recommend nursing staff give 0.5mg Ativan 20-30 min prior to scheduled cares. 10/20/17 Psych: Will continue current care with plan to repeat VPA level in AM on 10/22. Will start melatonin 5mg PO q HS, which may help with sleep.
[2017-10-20] MEDS: OLANZapine ODT 5 MG TABLET PO SCH (17:53)
[2017-10-20] MEDS: LATANOPROST 0.005% EYE DROPS 2.5ml LEFT EYE SCH ×2 (20:53→21:08)
[2017-10-20] MEDS: MELATONIN 5 MG TABLET PO SCH (20:53)
[2017-10-21] MEDS: APIXABAN 5 MG TABLET PO SCH ×2 (11:52→20:52)
[2017-10-21] MEDS: DIVALPROEX SPRINKLE 125 MG CAPSULE PO SCH ×2 (11:52→20:52)
[2017-10-21] MEDS: ACETAMINOPHEN 325 MG TABLET PO PRN (11:53)
[2017-10-21] MEDS: FENOFIBRATE 160 MG TABLET PO SCH (12:24)
[2017-10-21] MEDS: METFORMIN 500 MG TABLET PO SCH ×2 (12:24→17:28)
[2017-10-21] MEDS: ASPIRIN *EC* 81 MG TABLET PO SCH (12:24)
[2017-10-21] MEDS: ESCITALOPRAM 20 MG TABLET PO SCH (12:24)
--- NOTE | 2017-10-21 16:03 | Progress Note ---
- Date 10/21/17 Subjective: Chris is seen today while sitting in the day room, fidgeting with a activity blanket at one of the tables with nursing staff. He is non-verbal on exam and unable to be redirected from his activity. He does not resist the exam but does not participate either. Medical records and nursing notes were thoroughly reviewed and indicate that he continues to be labile with some occasional physical aggression specifically with cares in the evenings and over night. His appetite is very limited and he has had poor oral intake over the past several days. Extensive discussions regarding outcome goals and wishes for care were discussed with Chris's in conjunction with case management today. She verbalized very real expectations for the continuation of care with Chris and requested that all invasive measures including BGMs and lab draws be discontinued and expressed strong wishes that he not have an IV placed, no IV fluids or IV antibiotics. She is open to continuing oral medications as long as he is willing to take them with pudding but does not want medications forced upon him. She expressed a desire to start looking into hospice and placement for Chris. Case management will initiate contact with facilities and more towards placement hopefully in the near future. All of her questions were answered as able and she expressed gratitude for his care. She verified that he is a DNR. Objective Vital signs: Temperature 98.2 F 10/21/17 15:47 Pulse Rate 76 10/21/17 15:47 Respiratory Rate 16 10/21/17 15:47 Blood Pressure 147/69 H 10/21/17 15:47 Pulse Oximetry 96 10/20/17 23:17 Height/Weight/BMI: Height 5 ft 10 in Weight 164 lb 7.437 oz Body Mass Index 25.2 Comments: sitting at the table, requiring 1:1 care - Constitutional Present: no acute distress, well nourished, well developed, thin, cooperative - Routine HEENT Exam Head: Present: normocephalic, atraumatic Eye: Present: PERRL. Absent: conjunctival icterus ENT: Present: mucous membranes dry - Routine Respiratory Exam Comments: limited exam due to poor inspiratory effort; no cough or signs of respiratory distress. - Routine Cardiovascular Exam Present: S1, S2 - Routine Abdominal Exam Present: soft, normoactive bowel sounds, non distended, non tender - Routine Extremities Exam Present: no edema, full ROM, pulses intact - Routine Back/Spine/Pelvis Exam Back/Spine: Present: full ROM. Absent: vertebral tenderness - Routine Musculoskeletal Exam Musculoskeletal: Present: moving extremities well - Routine Skin Exam Present: dry, warm. Absent: jaundice Comments: afebrile - Routine Neurological Exam Present: moving all extremities. Absent: oriented X3 patient is non-verbal on exam and unable to be redirected from activity blanket on table. - Routine Lymphatic Exam Lymphatic: Absent: lymphedema - Routine Psychiatric Exam Present: cooperative Results - Labs CBC & Chem 7: 10/19/17 07:42 10/19/17 07:42 Assessment and Plan (1) Alzheimer's dementia Current visit: Yes Status: Chronic (2) Psychosis Problem details: Post-operative delirium suspected Current visit: Yes Status : Acute Assessment and Plan: Assessment Psychosis, acute. Alzheimer's dementia. Anemia, unspecified. Anxiety. BPH. CAD. CHF. Chronic anticoagulation on Eliquis. Chronic kidney disease, stage III. Depression. Diabetes Type 2. Glaucoma. Hypertension. History of prostate cancer. History of retinal vein occlusion, 2011. History of TIA. History of urinary incontinence. Osteoarthritis. Plan - 10/21/17 Rich continues to to be labile with irritability and aggression, especially in the evenings and night. His mental status has rapidly declined since admission. Goals of care were discussed extensively with the patient's in conjunction with case management and she expressed a wish to move forward in establishing hospice with placement. She verified that the patient remains a DNR and expressed a strong desire that the patient not under go any more procedures including BGMs or lab work and does not want an IV placed, IV fluids or IV medications given and nothing that would prolong his life. She is agreeable to continuing oral mediations as he is willing and able. He has been cooperative with oral medications in pudding. Recent labs revealed progressive hypernatremia and dehydration. Will encourage oral intake. Family does not want additional measures including no IV fluids. Extensive review of medical records and nursing notes was conducted. Anticipate discharge in the near future on hospice. Case management working on placement. Continue to provide safe and supportive environment. Resuscitation Status: Do Not Resuscitate - Time spent with patient Time with patient PN: 70 minutes Coordination of Care: >50% of visit spent providing counseling/coordination of care - Physician Narrative Physician: Bessie Bay MD Narrative: Date: 10/21/17 Time: 1551 Hospital Course Summary Disclaimer: The visit summary below is not to be considered part of the above Progress Note. Hospital Course: Plan - 10/08/17 (Admission) Agree with admission to [facility] for further psychiatric evaluation treatment. Provide safe and supportive environment. Hospitalist service consulted for medical management. Labs obtained in ED prior to admission and were relatively unremarkable. Will continue to monitor periodically throughout admission. TSH 1.80. Recent right inguinal hernia repair on 09/10/[address] Martinez with subsequent formation of a hematoma which has been managed as an outpatient. Will consult Dr. Martinez for continued management of hematoma. Anemia noted on admission - hgb 12.6. Will assess B12 level. Suspect anemia is secondary to recent surgery. Will continue to monitor closely. Continue home medications including Eliquis for chronic anticoagulation given prior TIA. Monitor blood pressure closely as well as daily weight to monitor for fluid overload. Will check blood sugars daily in AM. Upon discharge, patient's care will be returned to his PCP, Dr. Elise. 10/12/17 Psych: Zyprexa started over the weekend and titrated to 5mg PO q HS. Limited effectiveness. Will now start Depakote sprinkles 250mg PO with dinner and likely increase in the morning, will plan to taper Zyprexa once agitation has decreased. Informed consent given by patient's /DPOA. Monitor mood, behavior and response to treatment. 10/13/17 Psych: Patient did not receive Depakote last night. Will give Depakote sprinkles 250mg PO BID starting this AM and begin to taper Zyprexa once agitation decreases. Plan - 10/14/17 Currently patient appears to be having visual hallucinations, picking at items not seen on the floor. Requiring 4:1 care at times and clinical concern for safety. Would recommend sitter with patient at all times due to poor safety awareness and risk for falls. Continue psychiatric care per Dr. Macias and team. Provide safe and supportive environment. Patient noted to have clinical hyperkalemia on 10/11/17 with potassium at 6.2. Specimen was hemolyzed. Patient given 1L NS IV. Repeat labs were improved and unremarkable with potassium at 4.0. Will continue to monitor periodically throughout admission. Will reassess CBC and BMP today to monitor blood counts, electrolytes and renal function. Continue to encourage oral intake to prevent dehydration. Will need nursing assistance. 10/14/17 Psych: Continue current care while Depakote is approaching steady- state. Aggression is decreasing overall. Discussed care with patient's . 10/15/17 Psych: Depakote is approaching steady-state; aggression has been decreasing though delirium symptoms continue. Will decrease Zyprexa to 2.5mg PO scheduled at HS (has PRN available) in case this is worsening restlessness. Will decrease PRN Ativan dose to 0.5mg PO q 6 hrs. Would like to minimize PRN use. Plan - 10/16/17 Patient continues to have aggression with cares as well as restlessness and visual hallucinations. Continue psychiatric care per Dr. Macias and team. Continue to provide safe and supportive environment. Repeat labs on 10/14 revealed new mild anemia (Hgb 13.1). Will continue to monitor periodically throughout admission. No overt signs of bleeding. Patient continues to have poor oral intake with slight increase in SCr on 10/14. Encourage oral intake and will consult dietary for additional recommendations. Dr. Martinez monitoring patient's hematoma from recent inguinal hernia repair. Patient was placed on prophylaxis Keflex QID on 10/08/17 due to concerns about possible development of cellulitis. Patient has completed 7 days of treatment. Discussed with Dr. Martinez and will discontinue Keflex today. Continue to monitor groin for signs of infection. Patient remains afebrile. Nursing expressed concern about patient's home niacin due to the large pill size and inability to crush pill. Will hold niacin due to aspiration risk. Recheck labs on 10/19/17 to monitor blood counts, electrolytes and renal function. 10/16/17 Psych: Will order Depakote level for AM and adjust accordingly, with plan to continue to taper Zyprexa as tolerated. 10/17/17 Pt continues to have behaviors at times but they are improving. Continue current care 10/18/2017 Continues to have poor sleep at times and is agitated with cares. Depakote level 29. Will increase to 500mg PO BID Plan - 10/18/17 Still variable moods, irritability, acting out towards staff. Continue support, medication adjustments continue. 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 Starting to look a bit dry on labs- repeat labs in AM. Holding Niacin- would recommend we DC that. His lipid panel is not terribly abnormal. May need to consider discussion re: stopping Eliquis due to bleeding risk with dementia, risk of falls. Remains on Metformin- monitor labs and CKD closely. Will continue to follow. 10/19/17 Psych: Depakote sprinkles increased to 500mg PO BID on 10/18. Will plan to repeat VPA level in AM on 10/22. Will increase Zyprexa back to 5mg and schedule at 1800 to minimize evening agitation. Recommend nursing staff give 0.5mg Ativan 20-30 min prior to scheduled cares. 10/20/17 Psych: Will continue current care with plan to repeat VPA level in AM on 10/22. Will start melatonin 5mg PO q HS, which may help with sleep. Plan - 10/21/17 Chris continues to to be labile with irritability and aggression, especially in the evenings and night. His mental status has rapidly declined since admission. Goals of care were discussed extensively with the patient's in conjunction with case management and she expressed a wish to move forward in establishing hospice with placement. She verified that the patient remains a DNR and expressed a strong desire that the patient not under go any more procedures including BGMs or lab work and does not want an IV placed, IV fluids or IV medications given and nothing that would prolong his life. She is agreeable to continuing oral mediations as he is willing and able. He has been cooperative with oral medications in pudding. Recent labs revealed progressive hypernatremia and dehydration. Will encourage oral intake. Family does not want additional measures including no IV fluids. Extensive review of medical records and nursing notes was conducted. Anticipate discharge in the near future on hospice. Case management working on placement. Continue to provide safe and supportive environment.
--- NOTE | 2017-10-21 16:21 | Neuropsych Progress Note ---
[facility] Subjective Date: 10/22/17 - Sujective/Severity of Illness Medications: Acetaminophen (Tylenol) 325 - 650 mg PO Q5H PRN PRN Reason: Discomfort Last Admin: 10/21/17 11:53 Dose: 650 mg Hydrocodone Bitart/Acetaminophen ([employer] 5/325) 1 tab PO Q6H PRN PRN Reason: Pain Apixaban (Eliquis) 5 mg PO BID [facility] Last Admin: 10/21/17 11:52 Dose: 5 mg Aspirin (Ecotrin) 81 mg PO DAILY [facility] Last Admin: 10/21/17 12:24 Dose: 81 mg Bisacodyl (Dulcolax) 10 mg PO DAILY PRN PRN Reason: Constipation Last Admin: 10/14/17 08:41 Dose: 10 mg Divalproex Sodium (Depakote Sprinkle) 500 mg PO BID [facility] Last Admin: 10/21/17 11:52 Dose: 500 mg Dorzolamide HCl (Trusopt) 1 drops EACH EYE BID [facility] Last Admin: 10/20/17 21:08 Dose: Not Given Escitalopram Oxalate (Lexapro) 20 mg PO DAILY [facility] Last Admin: 10/21/17 12:24 Dose: 20 mg Fenofibrate (Lofibra) 160 mg PO WB [facility] Last Admin: 10/21/17 12:24 Dose: 160 mg Latanoprost (Xalatan) 1 drops LEFT EYE [facility] Last Admin: 10/20/17 21:08 Dose: Not Given Lorazepam (Ativan Inj) 0.5 mg IM Q6H PRN PRN Reason: Extreme agitation Last Admin: 10/21/17 03:34 Dose: 0.5 mg Lorazepam (Ativan) 0.5 mg PO Q6H PRN Lorazepam (Ativan Intensol) 0.5 mg PO Q6H PRN Last Admin: 10/19/17 20:14 Dose: 0.5 mg Melatonin (Melatonin) 5 mg PO HS [facility] Last Admin: 10/20/17 20:53 Dose: 5 mg Metformin HCl (Glucophage) 500 mg PO BIDWM [facility] Last Admin: 10/21/17 12:24 Dose: 500 mg Morphine Sulfate (Roxanol Oral Liq) 5 mg SL Q2H PRN Nitroglycerin (Nitrostat) 0.4 mg SL PRN PRN PRN Reason: Chest pain Olanzapine (Zyprexa Zydis) 2.5 mg PO Q6HR PRN PRN Reason: Agitation Last Admin: 10/17/17 23:10 Dose: 2.5 mg Olanzapine (Zyprexa Zydis) 5 mg PO 18 [facility] Last Admin: 10/20/17 17:53 Dose: Not Given Subjective: Patient seen and chart reviewed. Case discussed with treatment team. Patient is sleeping at time of rounds and is not woken as he only slept 1.25 hours overnight. Nursing staff report patient continues to be labile with some physical aggression with cares in the evenings/overnight, requiring PRN medication. Patient has been adherent with medications if crushed in food. VSS. Appetite limited. Psychotropic PRNs required in the past 24 hours: multiple , including Ativan 0.5mg IM at 0200 this morning for combativeness. Start Time: 09:00 Stop Time: 09:20 Mental Status Exam Vitals: Last Vital Signs Temp 98.2 F 10/21/17 15:47 Pulse 76 10/21/17 15:47 Resp 16 10/21/17 15:47 BP 147/69 H 10/21/17 15:47 Pulse Ox 96 10/20/17 23:17 Height: 1.78 m Weight: 74.6 kg - Mental Status Exam Muscle Strength/Tone: Weak Dressing: Casual Grooming: Fair Attitude: Cooperative Motor Activity: Retardation, Tremors, Restless (at times) Eye Contact: Poor Speech: Slowed, Other (Minimal) Volume: Soft Rhythm: Mumbled Orientation: Disoriented to time, Disoriented to place, Disoriented to situation , Oriented to person Mood: Neutral (labile affect) Affect: Blunted (on interview, labilility increased in evenings and overnight) Rate of Thoughts: Delayed Thought Organization: Disorganized, Confused Associations: Illogical Abstract Reasoning: Impaired, concrete Thought Content: Other (Poverty of thought or out of context to situation) Perception/Psychotic: Psychotic Current Hallucinations: Visual (observed picking out of air) Language: Naming Impaired Fund of Knowledge: Poor fund of knowledge Memory: Poor-immediate, Poor-recent Suicidal Ideation: Other (Had prior to admission, no SI observed today) Homicidal Ideation: None Insight: Impaired Judgement: Impaired Impulse Control: Poor - Laboratory Result Diagrams: 10/19/17 07:42 10/19/17 07:42 Assessment and Plan (1) Psychosis Problem details: Post-operative delirium suspected Status: Acute (2) 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, moderate to severe, with behavioral disturbance Status: Acute (3) Primary progressive aphasia Status: Acute (4) BPH (benign prostatic hyperplasia) Status: Acute (5) CAD (coronary artery disease) Status: Acute (6) CHF (congestive heart failure) Status: Acute (7) CKD (chronic kidney disease), stage III Status: Acute (8) DMII (diabetes mellitus, type 2) Status: Acute (9) Glaucoma Status: Acute (10) HTN (hypertension) Status: Acute (11) History of prostate cancer Status: Acute (12) History of retinal vein occlusion Status: Acute (13) History of TIA (transient ischemic attack) Status: Acute (14) History of urinary incontinence Status: Acute (15) Osteoarthritis Status: Acute Reason for possible delirium symptoms still unclear at this point and I don't believe imaging is feasible. There is some concern that patient seems to be in pain and Tylenol offers some relief, but minimal. Have discussed increasing narcotics and how this may cause worsening confusions, etc. Plan to discuss goals of care with family and whether they would like to consult with Hospice. Will plan to hold scheduled Zyprexa tonight and await decision. Hospital Course Summary Disclaimer: The visit summary below is not to be considered part of the above Progress Note. Hospital Course: Plan - 10/08/17 (Admission) Agree with admission to [facility] for further psychiatric evaluation treatment. Provide safe and supportive environment. Hospitalist service consulted for medical management. Labs obtained in ED prior to admission and were relatively unremarkable. Will continue to monitor periodically throughout admission. TSH 1.80. Recent right inguinal hernia repair on 09/10/[address] Martinez with subsequent formation of a hematoma which has been managed as an outpatient. Will consult Dr. Martinez for continued management of hematoma. Anemia noted on admission - hgb 12.6. Will assess B12 level. Suspect anemia is secondary to recent surgery. Will continue to monitor closely. Continue home medications including Eliquis for chronic anticoagulation given prior TIA. Monitor blood pressure closely as well as daily weight to monitor for fluid overload. Will check blood sugars daily in AM. Upon discharge, patient's care will be returned to his PCP, Dr. Elise. 10/12/17 Psych: Zyprexa started over the weekend and titrated to 5mg PO q HS. Limited effectiveness. Will now start Depakote sprinkles 250mg PO with dinner and likely increase in the morning, will plan to taper Zyprexa once agitation has decreased. Informed consent given by patient's /DPOA. Monitor mood, behavior and response to treatment. 10/13/17 Psych: Patient did not receive Depakote last night. Will give Depakote sprinkles 250mg PO BID starting this AM and begin to taper Zyprexa once agitation decreases. Plan - 10/14/17 Currently patient appears to be having visual hallucinations, picking at items not seen on the floor. Requiring 4:1 care at times and clinical concern for safety. Would recommend sitter with patient at all times due to poor safety awareness and risk for falls. Continue psychiatric care per Dr. Macias and team. Provide safe and supportive environment. Patient noted to have clinical hyperkalemia on 10/11/17 with potassium at 6.2. Specimen was hemolyzed. Patient given 1L NS IV. Repeat labs were improved and unremarkable with potassium at 4.0. Will continue to monitor periodically throughout admission. Will reassess CBC and BMP today to monitor blood counts, electrolytes and renal function. Continue to encourage oral intake to prevent dehydration. Will need nursing assistance. 10/14/17 Psych: Continue current care while Depakote is approaching steady- state. Aggression is decreasing overall. Discussed care with patient's . 10/15/17 Psych: Depakote is approaching steady-state; aggression has been decreasing though delirium symptoms continue. Will decrease Zyprexa to 2.5mg PO scheduled at HS (has PRN available) in case this is worsening restlessness. Will decrease PRN Ativan dose to 0.5mg PO q 6 hrs. Would like to minimize PRN use. Plan - 10/16/17 Patient continues to have aggression with cares as well as restlessness and visual hallucinations. Continue psychiatric care per Dr. Macias and team. Continue to provide safe and supportive environment. Repeat labs on 10/14 revealed new mild anemia (Hgb 13.1). Will continue to monitor periodically throughout admission. No overt signs of bleeding. Patient continues to have poor oral intake with slight increase in SCr on 10/14. Encourage oral intake and will consult dietary for additional recommendations. Dr. Martinez monitoring patient's hematoma from recent inguinal hernia repair. Patient was placed on prophylaxis Keflex QID on 10/08/17 due to concerns about possible development of cellulitis. Patient has completed 7 days of treatment. Discussed with Dr. Martinez and will discontinue Keflex today. Continue to monitor groin for signs of infection. Patient remains afebrile. Nursing expressed concern about patient's home niacin due to the large pill size and inability to crush pill. Will hold niacin due to aspiration risk. Recheck labs on 10/19/17 to monitor blood counts, electrolytes and renal function. 10/16/17 Psych: Will order Depakote level for AM and adjust accordingly, with plan to continue to taper Zyprexa as tolerated. 10/17/17 Pt continues to have behaviors at times but they are improving. Continue current care 10/18/2017 Continues to have poor sleep at times and is agitated with cares. Depakote level 29. Will increase to 500mg PO BID Plan - 10/18/17 Still variable moods, irritability, acting out towards staff. Continue support, medication adjustments continue. 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 Starting to look a bit dry on labs- repeat labs in AM. Holding Niacin- would recommend we DC that. His lipid panel is not terribly abnormal. May need to consider discussion re: stopping Eliquis due to bleeding risk with dementia, risk of falls. Remains on Metformin- monitor labs and CKD closely. Will continue to follow. 10/19/17 Psych: Depakote sprinkles increased to 500mg PO BID on 10/18. Will plan to repeat VPA level in AM on 10/22. Will increase Zyprexa back to 5mg and schedule at 1800 to minimize evening agitation. Recommend nursing staff give 0.5mg Ativan 20-30 min prior to scheduled cares. 10/20/17 Psych: Will continue current care with plan to repeat VPA level in AM on 10/22. Will start melatonin 5mg PO q HS, which may help with sleep. Plan - 10/21/17 Rich continues to to be labile with irritability and aggression, especially in the evenings and night. His mental status has rapidly declined since admission. Goals of care were discussed extensively with the patient's in conjunction with case management and she expressed a wish to move forward in establishing hospice with placement. She verified that the patient remains a DNR and expressed a strong desire that the patient not under go any more procedures including BGMs or lab work and does not want an IV placed, IV fluids or IV medications given and nothing that would prolong his life. She is agreeable to continuing oral mediations as he is willing and able. He has been cooperative with oral medications in pudding. Recent labs revealed progressive hypernatremia and dehydration. Will encourage oral intake. Family does not want additional measures including no IV fluids. Extensive review of medical records and nursing notes was conducted. Anticipate discharge in the near future on hospice. Case management working on placement. Continue to provide safe and supportive environment. 10/21/17 Psych: Reason for possible delirium symptoms still unclear at this point and I don't believe imaging is feasible. There is some concern that patient seems to be in pain and Tylenol offers some relief, but minimal. Have discussed increasing narcotics and how this may cause worsening confusions, etc. Plan to discuss goals of care with family and whether they would like to consult with Hospice. Will plan to hold scheduled Zyprexa tonbelen and await decision.
[2017-10-21] MEDS: MORPHINE SULFATE 10mg/0.5ml ORAL LIQ SL PRN ×3 (16:30→22:02)
[2017-10-21] MEDS: DORZOLAMIDE 2% EYE DROPS 10ml EACH EYE SCH ×2 (16:36→20:52)
[2017-10-21] MEDS: LORazepam INTENSOL 1mg/0.5ml ORAL LIQUID PO PRN ×2 (17:41→22:31)
[2017-10-21 20:38] VITALS: BP 111/69; PULSE 62; RESP 12; TEMP 97.4; O2SAT 95
[2017-10-21] MEDS: LATANOPROST 0.005% EYE DROPS 2.5ml LEFT EYE SCH (20:52)
[2017-10-21] MEDS: MELATONIN 5 MG TABLET PO SCH (20:52)
[2017-10-22] MEDS: MORPHINE SULFATE 10mg/0.5ml ORAL LIQ SL PRN ×3 (05:30→12:44)
[2017-10-22] MEDS: LORazepam INTENSOL 1mg/0.5ml ORAL LIQUID PO PRN ×2 (05:30→12:44)
[2017-10-22] MEDS: DIVALPROEX SPRINKLE 125 MG CAPSULE PO SCH (09:32)
[2017-10-22] MEDS: APIXABAN 5 MG TABLET PO SCH (12:37)
[2017-10-22] MEDS: FENOFIBRATE 160 MG TABLET PO SCH (12:37)
[2017-10-22] MEDS: METFORMIN 500 MG TABLET PO SCH (12:37)
[2017-10-22] MEDS: ASPIRIN *EC* 81 MG TABLET PO SCH (12:37)
[2017-10-22] MEDS: ESCITALOPRAM 20 MG TABLET PO SCH (12:38)
[2017-10-22] MEDS: DORZOLAMIDE 2% EYE DROPS 10ml EACH EYE SCH (12:38)
--- NOTE | 2017-10-22 14:03 | Extended Care Facility Orders ---
Admission Orders Admit to:: Hospice Allergies/Adverse Reactions: Allergies No Known Drug Allergies Allergy (Unknown, Verified 10/08/17 09:02) Admitting Diagnosis: psychosis Admitting Physician: Cherelle Macias MD Attending Physician: Cherelle Macias MD Code Status: Do Not Resuscitate Anticiapted Length of Stay: 30 days or less Rehab Potential: poor Rehab Prognosis: poor Diet: 10/14/17 Dinner Regular Diet [DIET] Diet Modifications: Food Consistency: SOFT May use Facility Protocol or Standing Orders: Yes May have flu vaccine: Yes Evaluations/Treatment: Psychiatric, as needed Senior Living Certification: I certify that SNF services are required to be given on an Inpatient basis because of the patients need for intermediate care on a continuing basis for the condition(s) for which he/she received inpatient hospital services prior to his/her transfer to the SNF. SNF inpatient care is necessary for the following reasons - Additional Information In Event of Arrest: Do Not Start CPR Resident is Aware of Diagnosis: No
--- NOTE | 2017-10-22 18:16 | Neuropsych Progress Note ---
[facility] Subjective Date: 10/22/17 - Sujective/Severity of Illness Subjective: Patient seen and chart reviewed. Case discussed with treatment team. On interview, patient is in dayroom with while eating lunch. He appears comfortable. Family has made the decision to transfer to Hospice care. Again discussed nature of diagnosis, prognosis, narcotics with and all questions answered to her satisfaction. She thanked me for the care he has received here. Start Time: 11:00 Stop Time: 11:20 Mental Status Exam Vitals: Last Vital Signs Temp 97.4 F 10/21/17 20:37 Pulse 62 10/21/17 20:37 Resp 12 10/21/17 20:37 BP 111/69 10/21/17 20:37 Pulse Ox 95 10/21/17 20:37 Height: 1.78 m Weight: 74.6 kg - Mental Status Exam Muscle Strength/Tone: Weak Dressing: Casual Grooming: Fair Attitude: Cooperative Motor Activity: Retardation, Tremors, Restless (at times) Eye Contact: Poor Speech: Slowed, Other (Minimal) Volume: Soft Rhythm: Mumbled Orientation: Disoriented to time, Disoriented to place, Disoriented to situation , Oriented to person Mood: Neutral (labile affect) Affect: Blunted Rate of Thoughts: Delayed Thought Organization: Disorganized, Confused Associations: Illogical Abstract Reasoning: Impaired, concrete Thought Content: Other (Poverty of thought or out of context to situation) Perception/Psychotic: Psychotic Current Hallucinations: Visual (observed picking out of air) Language: Naming Impaired Fund of Knowledge: Poor fund of knowledge Memory: Poor-immediate, Poor-recent Suicidal Ideation: Other (Had prior to admission, no SI observed today) Homicidal Ideation: None Insight: Impaired Judgement: Impaired Impulse Control: Poor - Laboratory Result Diagrams: 10/19/17 07:42 10/19/17 07:42 Assessment and Plan (1) Psychosis Problem details: Post-operative delirium suspected Status: Acute (2) 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, moderate to severe, with behavioral disturbance Status: Acute (3) Primary progressive aphasia Status: Acute (4) BPH (benign prostatic hyperplasia) Status: Acute (5) CAD (coronary artery disease) Status: Acute (6) CHF (congestive heart failure) Status: Acute (7) CKD (chronic kidney disease), stage III Status: Acute (8) DMII (diabetes mellitus, type 2) Status: Acute (9) Glaucoma Status: Acute (10) HTN (hypertension) Status: Acute (11) History of prostate cancer Status: Acute (12) History of retinal vein occlusion Status: Acute (13) History of TIA (transient ischemic attack) Status: Acute (14) History of urinary incontinence Status: Acute (15) Osteoarthritis Status: Acute Plan to discharge today to Hospice care per family's wishes. Hospital Course Summary Disclaimer: The visit summary below is not to be considered part of the above Progress Note. Hospital Course: Plan - 10/08/17 (Admission) Agree with admission to [facility] for further psychiatric evaluation treatment. Provide safe and supportive environment. Hospitalist service consulted for medical management. Labs obtained in ED prior to admission and were relatively unremarkable. Will continue to monitor periodically throughout admission. TSH 1.80. Recent right inguinal hernia repair on 09/10/[address] Martinez with subsequent formation of a hematoma which has been managed as an outpatient. Will consult Dr. Martinez for continued management of hematoma. Anemia noted on admission - hgb 12.6. Will assess B12 level. Suspect anemia is secondary to recent surgery. Will continue to monitor closely. Continue home medications including Eliquis for chronic anticoagulation given prior TIA. Monitor blood pressure closely as well as daily weight to monitor for fluid overload. Will check blood sugars daily in AM. Upon discharge, patient's care will be returned to his PCP, Dr. Elise. 10/12/17 Psych: Zyprexa started over the weekend and titrated to 5mg PO q HS. Limited effectiveness. Will now start Depakote sprinkles 250mg PO with dinner and likely increase in the morning, will plan to taper Zyprexa once agitation has decreased. Informed consent given by patient's /DPOA. Monitor mood, behavior and response to treatment. 10/13/17 Psych: Patient did not receive Depakote last night. Will give Depakote sprinkles 250mg PO BID starting this AM and begin to taper Zyprexa once agitation decreases. Plan - 10/14/17 Currently patient appears to be having visual hallucinations, picking at items not seen on the floor. Requiring 4:1 care at times and clinical concern for safety. Would recommend sitter with patient at all times due to poor safety awareness and risk for falls. Continue psychiatric care per Dr. Macias and team. Provide safe and supportive environment. Patient noted to have clinical hyperkalemia on 10/11/17 with potassium at 6.2. Specimen was hemolyzed. Patient given 1L NS IV. Repeat labs were improved and unremarkable with potassium at 4.0. Will continue to monitor periodically throughout admission. Will reassess CBC and BMP today to monitor blood counts, electrolytes and renal function. Continue to encourage oral intake to prevent dehydration. Will need nursing assistance. 10/14/17 Psych: Continue current care while Depakote is approaching steady- state. Aggression is decreasing overall. Discussed care with patient's . 10/15/17 Psych: Depakote is approaching steady-state; aggression has been decreasing though delirium symptoms continue. Will decrease Zyprexa to 2.5mg PO scheduled at HS (has PRN available) in case this is worsening restlessness. Will decrease PRN Ativan dose to 0.5mg PO q 6 hrs. Would like to minimize PRN use. Plan - 10/16/17 Patient continues to have aggression with cares as well as restlessness and visual hallucinations. Continue psychiatric care per Dr. Macias and team. Continue to provide safe and supportive environment. Repeat labs on 10/14 revealed new mild anemia (Hgb 13.1). Will continue to monitor periodically throughout admission. No overt signs of bleeding. Patient continues to have poor oral intake with slight increase in SCr on 10/14. Encourage oral intake and will consult dietary for additional recommendations. Dr. Martinez monitoring patient's hematoma from recent inguinal hernia repair. Patient was placed on prophylaxis Keflex QID on 10/08/17 due to concerns about possible development of cellulitis. Patient has completed 7 days of treatment. Discussed with Dr. Martinez and will discontinue Keflex today. Continue to monitor groin for signs of infection. Patient remains afebrile. Nursing expressed concern about patient's home niacin due to the large pill size and inability to crush pill. Will hold niacin due to aspiration risk. Recheck labs on 10/19/17 to monitor blood counts, electrolytes and renal function. 10/16/17 Psych: Will order Depakote level for AM and adjust accordingly, with plan to continue to taper Zyprexa as tolerated. 10/17/17 Pt continues to have behaviors at times but they are improving. Continue current care 10/18/2017 Continues to have poor sleep at times and is agitated with cares. Depakote level 29. Will increase to 500mg PO BID Plan - 10/18/17 Still variable moods, irritability, acting out towards staff. Continue support, medication adjustments continue. 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 Starting to look a bit dry on labs- repeat labs in AM. Holding Niacin- would recommend we DC that. His lipid panel is not terribly abnormal. May need to consider discussion re: stopping Eliquis due to bleeding risk with dementia, risk of falls. Remains on Metformin- monitor labs and CKD closely. Will continue to follow. 10/19/17 Psych: Depakote sprinkles increased to 500mg PO BID on 10/18. Will plan to repeat VPA level in AM on 10/22. Will increase Zyprexa back to 5mg and schedule at 1800 to minimize evening agitation. Recommend nursing staff give 0.5mg Ativan 20-30 min prior to scheduled cares. 10/20/17 Psych: Will continue current care with plan to repeat VPA level in AM on 10/22. Will start melatonin 5mg PO q HS, which may help with sleep. Plan - 10/21/17 Rich continues to to be labile with irritability and aggression, especially in the evenings and night. His mental status has rapidly declined since admission. Goals of care were discussed extensively with the patient's in conjunction with case management and she expressed a wish to move forward in establishing hospice with placement. She verified that the patient remains a DNR and expressed a strong desire that the patient not under go any more procedures including BGMs or lab work and does not want an IV placed, IV fluids or IV medications given and nothing that would prolong his life. She is agreeable to continuing oral mediations as he is willing and able. He has been cooperative with oral medications in pudding. Recent labs revealed progressive hypernatremia and dehydration. Will encourage oral intake. Family does not want additional measures including no IV fluids. Extensive review of medical records and nursing notes was conducted. Anticipate discharge in the near future on hospice. Case management working on placement. Continue to provide safe and supportive environment. 10/21/17 Psych: Reason for possible delirium symptoms still unclear at this point and I don't believe imaging is feasible. There is some concern that patient seems to be in pain and Tylenol offers some relief, but minimal. Have discussed increasing narcotics and how this may cause worsening confusions, etc. Plan to discuss goals of care with family and whether they would like to consult with Hospice. Will plan to hold scheduled Zyprexa gisela and await decision. 10/22/17 Psych: Plan to discharge today to Hospice care per family's wishes.
== END 2017-10-22 13:40 | disposition hospice, home (50) | DRG 57 ==
LOC: ED 07:59 → GEN 11:06
PROVIDERS: ADMIT Psychiatry & Neurology Psychiatry; ATTEND Psychiatry & Neurology Psychiatry